=== PATIENT | male | born 1950 | race Caucasian/White ===

== ENCOUNTER 2020-03-24 14:00 | Outpatient (REF) | payer MEDICARE, SELFPAY ==
[2020-03-24 15:48] LABS: Prostate Specific Antigen 6.61 ng/mL (<0.05-4.0)
== END 2020-03-24 14:01 | disposition home or self-care (01) ==
LOC: HO.LAB 14:00
PROVIDERS: PCP Internal Medicine; Visit Provider Urology
DX: N40.1 Benign prostatic hyperplasia with lower urinary tract symptoms (principal); Z12.5 Encounter for screening for malignant neoplasm of prostate
CPT/HCPCS: 84153

== ENCOUNTER 2020-05-15 12:01 | Outpatient (REF) | payer MEDICARE, SELFPAY ==
[2020-05-15 13:02] LABS: Iron 146 mcg/dL (45-160); Percent Iron Saturation 58 % (15-50); Total Iron Binding Capacity 253 mcg/dL (228-428); Unsaturated Iron Binding 107 ug/dL
[2020-05-15 13:06] LABS: Hematocrit 42.2 % (42-52); Hemoglobin 13.7 g/dl (14.0-18.0); Mean Corpuscular HGB Conc 32.5 g/dl (31.0-36.0); Mean Corpuscular Hemoglobin 30.5 pg (27.0-33.0); Mean Platelet Volume 10.7 fL (9.4-12.4); Platelet Count 188 X10*3/uL (160-400); Red Blood Count 4.49 X10*6/uL (4.60-5.80); White Blood Count 6.9 X10*3/uL (4.8-10.8)
[2020-05-15 13:24] LABS: Ferritin 507 ng/mL (20-250)
[2020-05-15 13:36] LABS: Folate 16.6 ng/mL (> or = 4.0); Vitamin B12 410 pg/mL (200-900)
== END 2020-05-15 12:02 | disposition home or self-care (01) ==
LOC: HO.LAB 12:01
PROVIDERS: PCP Internal Medicine; Visit Provider Internal Medicine
DX: D64.9 Anemia, unspecified (principal)
CPT/HCPCS: 36415; 82607; 82728; 82746; 83540; 85027

== ENCOUNTER 2020-06-10 16:27 | Outpatient (REF) | payer MEDICARE, SELFPAY | END 2020-06-10 16:28 | disposition home or self-care (01) | LOC: HO.LAB 16:27 | PROVIDERS: Visit Provider Internal Medicine | DX: Z20.828 Contact with and (suspected) exposure to other viral communicable diseases (principal) | CPT/HCPCS: C9803; U0003 ==

== ENCOUNTER → 2020-07-21 12:00 | Outpatient (BNVA) | payer MEDICARE, SELFPAY | PROVIDERS: PCP Internal Medicine; Visit Provider Orthopaedic Surgery | DX: M75.41 Impingement syndrome of right shoulder (principal) | CPT/HCPCS: 20610; 99212; J1040 ==

== ENCOUNTER 2020-09-28 10:37 | Outpatient (REF) | payer MEDICARE, SELFPAY ==
[2020-09-28 12:57] LABS: Prostate Specific Antigen 9.94 ng/mL (<0.05-4.0)
== END 2020-09-28 10:38 | disposition home or self-care (01) ==
LOC: HO.LAB 10:37
PROVIDERS: PCP Internal Medicine; Visit Provider Urology
DX: N40.1 Benign prostatic hyperplasia with lower urinary tract symptoms (principal)
CPT/HCPCS: 36415; 84153

== ENCOUNTER 2020-12-21 06:09 | Outpatient (REF) | payer MEDICARE, SELFPAY ==
[2020-12-21 07:35] LABS: Alanine Aminotransferase 13 U/L (0-40); Anion Gap 12 (12-20); Aspartate Amino Transferase 14 U/L (5-37); Blood Urea Nitrogen 14 mg/dL (9-16); Calcium 8.8 mg/dL (8.4-10.2); Carbon Dioxide 27 mmol/L (22-29); Chloride 107 mmol/L (96-108); Cholesterol 158 mg/dL; Estimated Glomerular Filt Rate > 60; Glucose Fasting 95 mg/dL (60-99); HDL Cholesterol 68 mg/dL; LDL Cholesterol Calculated 78 mg/dl; Potassium 4.1 mmol/L (3.3-5.1); Sodium 142 mmol/L (135-145); Triglycerides 63 mg/dL
== END 2020-12-21 06:10 | disposition home or self-care (01) ==
LOC: HO.LAB 06:09
PROVIDERS: Visit Provider Internal Medicine
DX: I10 Essential (primary) hypertension (principal)
CPT/HCPCS: 36415; 80048; 80061; 84450; 84460

== ENCOUNTER 2021-06-17 07:52 | Outpatient (REF) | payer MEDICARE, SELFPAY ==
[2021-06-17 09:18] LABS: Prostate Specific Antigen 8.62 ng/mL (<0.05-4.0)
== END 2021-06-17 07:53 | disposition home or self-care (01) ==
LOC: HO.LAB 07:52
PROVIDERS: PCP Internal Medicine; Visit Provider Urology
DX: Z12.5 Encounter for screening for malignant neoplasm of prostate (principal); R97.20 Elevated prostate specific antigen [PSA]
CPT/HCPCS: 36415; 84153

== ENCOUNTER 2021-07-09 09:10 | Outpatient (REF) | payer MEDICARE, SELFPAY ==
[2021-07-09 10:48] LABS: Anion Gap 12 (12-20); Blood Urea Nitrogen 19 mg/dL (9-16); Calcium 8.7 mg/dL (8.4-10.2); Carbon Dioxide 26 mmol/L (22-29); Chloride 107 mmol/L (96-108); Estimated Glomerular Filt Rate > 60; Glucose Fasting 87 mg/dL (60-99); Potassium 4.2 mmol/L (3.3-5.1); Sodium 141 mmol/L (135-145)
== END 2021-07-09 09:11 | disposition home or self-care (01) ==
LOC: HO.LAB 09:10
PROVIDERS: PCP Internal Medicine; Visit Provider Internal Medicine
DX: I10 Essential (primary) hypertension (principal)
CPT/HCPCS: 36415; 80048

== ENCOUNTER 2021-08-09 10:27 | Emergency (ER) | payer MEDICARE, SELFPAY ==
--- NOTE | ~2021-08-09 | CT_ITS ---
EXAMINATION: CT SOFT TISSUE NECK WITH CONTRAST CLINICAL INFORMATION: Right neck and jaw swelling. Gray's angina. Evaluate for retropharyngeal abscess. COMPARISON: No relevant prior imaging. TECHNIQUE: Following the intravenous administration of 100 mL of Omnipaque 350 intravenous contrast, helical imaging was performed in the axial plane with generation of coronal and sagittal reformatted images. This CT examination was performed using dose optimization techniques as appropriate, variously including the following: *Automated exposure control *Adjustment of mA and/or kV according to patient size (this includes techniques or standardized protocols for targeted exams where dose is matched to indication/reason for exam; i.e. extremities or head) *Use of iterative reconstruction technique DLP: 958 mGy-cm FINDINGS: There is asymmetric stranding within the subcutaneous soft tissues of the right anterior neck and there is apparent thickening and enhancement of the right buccal mucosa. No discrete drainable subperiosteal fluid collection. Internal jugular veins enhance symmetrically and there is no evidence of septic thrombophlebitis. Pharyngeal mucosal spaces are symmetric. Parapharyngeal and retromaxillary fat is preserved. [employer] spaces are grossly symmetric. Parotid and submandibular glands are normal. The tongue base and epiglottis are normal. Preepiglottic fat is preserved. Glottic and subglottic airways are patent. The thyroid gland is normal and the remainder of the visualized visceral soft tissues are normal. Lung apices are clear. Cervical carotid and vertebral arteries are grossly patent. There is no acute osseous finding. Specifically no worrisome lytic or blastic osseous lesion. 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 Limited visualization of the intracranial anatomy reveals no abnormal finding. CT/CT soft tissue neck w con IMPRESSION: There are inflammatory changes within the subcutaneous soft tissues of the right anterior neck and asymmetric thickening and hyperenhancement of the right buccal mucosal space. No evidence of a discrete drainable fluid collection. No evidence of septic thrombophlebitis. Correlation with clinical examination is recommended with regard to the findings within the buccal mucosa.
[2021-08-09 10:34] VITALS: BP 119/74; PULSE 78; RESP 18; TEMP 36.9; O2SAT 96; BMI 33.2
--- NOTE | 2021-08-09 11:43 | ED_ITS ---
HPI - General Adult General Chief complaint: Dental/Oral Stated complaint: mouth infection Time Seen by Provider: 08/09/21 11:14 Source: patient Mode of arrival: ambulatory Limitations: no limitations History of Present Illness HPI narrative: This 71-year-old male presents to ED for right lower molar pain with right facial and right neck swelling that began 2 days ago with an worsen overnight. Patient states he had dental work 2 days ago and then soon after started having dental pain with swelling of the lower jaw and then this morning woke up with right neck swelling. Patient states he has been taking amoxicillin for the past 2 days. Patient denies any drooling, shortness of breath, change in voice, hea dache, fever, or chills. Related Data Home Medications Medication Instructions Recorded Confirmed flu vacc [id number] 6mos up(PF) ml IM 05/20/20 08/05/21 tamsulosin 0.4 mg capsule mg PO 05/20/20 08/05/21 metaproterenol 650 mcg/actuation mcg INHALATION BID PRN 07/13/21 08/05/21 aerosol inhaler Previous Rx's Medication Instructions Recorded amlodipine 5 mg tablet 5 mg PO DAILY #90 tab 04/14/21 atenolol 25 mg tablet 25 mg PO DAILY #90 tab 04/14/21 montelukast 10 mg tablet 10 mg PO BEDTIME #90 tab 04/14/21 Allergies Allergy/AdvReac Type Severity Reaction Status Date / Time albuterol [Albuterol] Allergy Severe INITIATES Verified 08/05/21 17:27 ASTHMA ATTACK, broncho spasm, resp arrest , sob morphine [Morphine] Allergy Severe VOMITING, Verified 08/05/21 17:27 gi upset, hallucinations, vomiting acetaminophen [Percocet] AdvReac Unknown hallucinations, Verified 08/05/21 17:27 vomiting oxycodone [Percocet] AdvReac Unknown hallucinations, Verified 08/05/21 17:27 vomiting Review of Systems Review of Systems: Right toothache. Right facial/neck swelling Yes all other systems are reviewed and are negative PMFSH Past Medical History Medical History Benign prostatic hyperplasia Degenerative joint disease (DJD) of lumbar spine Environmental and seasonal allergies Essential hypertension Mild intermittent asthma in adult without complication SARIKA on CPAP Skin lesion of left ear T12 compression fracture Surgical History History of knee surgery History of lumbar spinal fusion Hx of cholecystectomy Family History Family History Father CAD (coronary artery disease) HTN (hypertension) CVD (cardiovascular disease) Mother Medical history non-contributory Social History Social History Housing: House Alcohol intake: never Patient Tobacco Use Status: Never used Tobacco e-Cigarette/Vaping Use: Never Used Second Hand Smoke Exposure: No Advance Directives: Yes Advance Directives Information Provided: Yes Advance Directives on File: No Current occupational status: retired Physical Exam ED Vital Signs: Vital Signs - 24 hr 08/09/21 10:34 Temperature 98.5 F Pulse Rate 78 Respiratory Rate 18 Blood Pressure 119/74 Pulse Oximetry 96 BMI result Body Mass Index 33.2 Const General: cooperative, healthy appearing, comfortable, no acute distress and well developed Orientation/consciousness: oriented to time and patient oriented x3 HENMT Head: Yes normal to inspection, Yes No palpable skull fracture present, Yes normocephalic, Yes atraumatic and No abrasion Head images: 1. Right facial swelling Teeth image: 1. Tenderness on palpation. Positive for dental decay. Negative for gum fluctuance/erythema/swelling. Eyes General: appearance normal, both eyes and all related structures Neck Neck: Yes normal visual inspection, Yes full ROM, Yes no lymphadenopathy, Yes no meningeal signs, Yes trachea midline, Yes supple and Yes anterior neck swelling (Right-sided neck swelling) Neck images: 1. Swelling with no palpable mass on palpation Chest Chest palpation & inspection: normal inspection of the chest and normal palpation of entire chest wall Resp Effort & Inspection: normal respiratory effort and able to speak in complete sentences Auscultation: clear to auscultation bilaterally Cardio Jugular venous distension: no JVD Heart sounds: S1 normal heart sound present and S2 normal heart sound present GI Inspection: Yes normal to inspection and No abdominal wall ecchymosis Palpation (GI): Soft to palpation, not firm, nontender, no guarding and not rigid General: No CVA tenderness and Yes no CVA tenderness Back/Spine/Pelvis Back: no CVA tenderness, No CVA tenderness and No back tenderness Skin General skin exam: no rashes or lesions noted and elasticity normal Neuro General: oriented to time, patient oriented x3 and no meningeal signs Cranial nerves: Yes CN's II-XII intact bilaterally Extrem General: Yes normal to inspection and Yes full ROM Psych Appearance: grossly normal, well kempt and not disheveled Course Course Course Narrative: Due to significant facial and neck swelling and recent dental work patient will have labs drawn, lactic blood culture, COVID swab, IV Unasyn and most likely sent for imaging of neck. Reevaluation(s) Reevaluation #1: Labs are normal. Negative for elevated white blood cell count or lactic acid. Kidney function chemistry normal. Soft tissue neck CT scan came back negative for any drainable abscess in gum, and negative for retropharyngeal abscess or Gray's angina. Patient informed to continue taking his amoxicillin and follow up with dentist. Patient given copy of CT scan and labs to follow-up with his dentist Time: 14:33 Medical Decision Making [facility] Narrative Medical decision making narrative: Toothache. Her down to disease Lab Data Result diagrams: 08/09/21 11:43 08/09/21 11:43 Labs: Lab Results 08/09/21 08/09/21 08/09/21 Range/Units 11:43 11:43 11:43 WBC 9.7 (4.8-10.8) X10*3/uL RBC 4.64 (4.60-5.80) X10*6/uL Hgb 14.2 (14.0-18.0) g/dl Hct 42.9 (42.0-52.0) % MCV 92.5 (80.0-98.0) fL MCH 30.6 (27.0-33.0) pg MCHC 33.1 (31.0-36.0) g/dl RDW 14.4 (11.0-16.0) % Plt Count 161 (160-400) X10*3/uL MPV 10.4 (9.4-12.4) fL Immature Gran % (Auto) 0.5 H (0.0-0.4) % Neut % (Auto) 75.8 H (45-73) % Lymph % (Auto) 12.5 L (20-40) % Fannin % (Auto) 10.6 (2-11) % Eos % (Auto) 0.4 (0-4) % Baso % (Auto) 0.2 (0-2) % Lymph # (Auto) 1.2 (1.2-4.9) X10*3/uL Fannin # (Auto) 1.0 (0.1-1.2) X10*3/uL Eos # (Auto) 0.0 (0.0-0.4) X10*3/uL Baso # (Auto) 0.0 (0.0-0.2) X10*3/uL Abs Immat Gran (auto) 0.05 H (0.00-0.03) X10*3/uL Absolute Neuts (auto) 7.4 (2.0-8.3) x10*3/uL Absolute Nucleated RBC 0.000 (0.0-0.012) X10*3/uL Nucleated RBC % (auto) 0.0 (0.0-0.2) /100WBC PT 13.1 H (9.9-13.0) SEC INR 1.2 H (0.9-1.1) APTT 32.7 (24.1-38.0) SEC Sodium 137 (135-145) mmol/L Potassium 4.4 (3.3-5.1) mmol/L Chloride 102 (96-108) mmol/L Carbon Dioxide 27 (22-29) mmol/L Anion Gap 12 (12-20) BUN 11 (9-16) mg/dL Creatinine 0.70 (0.5-1.4) mg/dL Estim Creat Clear Calc 113.9 Estimated GFR > 60 Random Glucose 104 (60-115) mg/dL Lactic Acid (0.5-2.0) mmol/L Calcium 9.3 D (8.4-10.2) mg/dL Total Bilirubin 0.8 (0.0-1.0) mg/dL AST 18 (5-37) U/L ALT 18 (0-40) U/L Alkaline Phosphatase 79 (39-117) U/L Total Protein 6.6 (6.5-8.0) g/dL Albumin 4.0 (3.5-5.0) g/dL COVID-19 (EDB) (Negative) COVID-19 Clin Com 08/09/21 08/09/21 Range/Units 11:43 11:43 WBC (4.8-10.8) X10*3/uL RBC (4.60-5.80) X10*6/uL Hgb (14.0-18.0) g/dl Hct (42.0-52.0) % MCV (80.0-98.0) fL MCH (27.0-33.0) pg MCHC (31.0-36.0) g/dl RDW (11.0-16.0) % Plt Count (160-400) X10*3/uL MPV (9.4-12.4) fL Immature Gran % (Auto) (0.0-0.4) % Neut % (Auto) (45-73) % Lymph % (Auto) (20-40) % Fannin % (Auto) (2-11) % Eos % (Auto) (0-4) % Baso % (Auto) (0-2) % Lymph # (Auto) (1.2-4.9) X10*3/uL Fannin # (Auto) (0.1-1.2) X10*3/uL Eos # (Auto) (0.0-0.4) X10*3/uL Baso # (Auto) (0.0-0.2) X10*3/uL Abs Immat Gran (auto) (0.00-0.03) X10*3/uL Absolute Neuts (auto) (2.0-8.3) x10*3/uL Absolute Nucleated RBC (0.0-0.012) X10*3/uL Nucleated RBC % (auto) (0.0-0.2) /100WBC PT (9.9-13.0) SEC INR (0.9-1.1) APTT (24.1-38.0) SEC Sodium (135-145) mmol/L Potassium (3.3-5.1) mmol/L Chloride (96-108) mmol/L Carbon Dioxide (22-29) mmol/L Anion Gap (12-20) BUN (9-16) mg/dL Creatinine (0.5-1.4) mg/dL Estim Creat Clear Calc Estimated GFR Random Glucose (60-115) mg/dL Lactic Acid 1.1 (0.5-2.0) mmol/L Calcium (8.4-10.2) mg/dL Total Bilirubin (0.0-1.0) mg/dL AST (5-37) U/L ALT (0-40) U/L Alkaline Phosphatase (39-117) U/L Total Protein (6.5-8.0) g/dL Albumin (3.5-5.0) g/dL COVID-19 (DEB) Negative (Negative) COVID-19 Clin Com See Note Discharge Plan Discharge Clinical Impression: Toothache, Gingival disease Patient Disposition: Home, Self-Care Instructions: Toothache (ED), Periodontal Disease (DC) Additional Instructions: Your blood work came back normal. Chest CT scan came back negative for any abscess in your neck oral cavity. Continue taking augmentin as prescribed by her dentist. Please follow-up with your dentist immediately. Return to ED for worsening swelling, drooling, shortness of breath, change in voice, sensation of throat closing, or any other concerning symptoms. Prescriptions: No Action montelukast 10 mg tablet 10 mg PO BEDTIME Qty: 90 3RF atenolol 25 mg tablet 25 mg PO DAILY Qty: 90 3RF amlodipine 5 mg tablet 5 mg PO DAILY Qty: 90 4RF tamsulosin 0.4 mg capsule PO 0RF Fluarix Quad [id number] (PF) 60 mcg (15 mcg x 4)/0.5 mL syringe IM 0RF metaproterenol 650 mcg/actuation aerosol inhalation BID PRN (Reason: bronchospasm) 0RF Interventions: ED Discharge Assessment Last Done: 08/09/21 14:43 Discharge Date/Time: 08/09/21 14:44 Print Language: Tamazight
[2021-08-09] MEDS: 0.9 % Sodium Chloride 1,000 ML 999 ML IV (11:44)
[2021-08-09 11:57] LABS: MANUAL DIFF FLAG NO
[2021-08-09 11:58] LABS: Basophils Percent Auto 0.2 % (0-2); Eosinophils Percent Auto 0.4 % (0-4); Hematocrit 42.9 % (42.0-52.0); Hemoglobin 14.2 g/dl (14.0-18.0); Imm Gran Abs Auto 0.05 X10*3/uL (0.00-0.03); Imm Gran Pct Auto 0.5 % (0.0-0.4); Lymphocytes Absolute Auto 1.2 X10*3/uL (1.2-4.9); Lymphocytes Percent Auto 12.5 % (20-40); Mean Corpuscular HGB Conc 33.1 g/dl (31.0-36.0); Mean Corpuscular Hemoglobin 30.6 pg (27.0-33.0); Mean Corpuscular Volume 92.5 fL (80.0-98.0); Mean Platelet Volume 10.4 fL (9.4-12.4); Monocytes Percent Auto 10.6 % (2-11); Neutrophils Absolute Auto 7.4 x10*3/uL (2.0-8.3); Neutrophils Percent Auto 75.8 % (45-73); Platelet Count 161 X10*3/uL (160-400); Red Blood Count 4.64 X10*6/uL (4.60-5.80); Red Cell Distribution Width 14.4 % (11.0-16.0); White Blood Count 9.7 X10*3/uL (4.8-10.8)
[2021-08-09 12:05] LABS: INTERNATIONAL NORM RATIO 1.2 (0.9-1.1); Prothrombin Time 13.1 SEC (9.9-13.0)
[2021-08-09 12:07] LABS: Partial Thromboplastin Time 32.7 SEC (24.1-38.0)
[2021-08-09] MEDS: Ampicillin Sodium/Sulbactam Na 3 GM in 0.9 % Sodium Chloride 100 ML IV (12:09)
[2021-08-09 12:10] LABS: Lactic Acid 1.1 mmol/L (0.5-2.0)
[2021-08-09 12:15] LABS: Alanine Aminotransferase 18 U/L (0-40); Alkaline Phosphatase 79 U/L (39-117); Anion Gap 12 (12-20); Aspartate Amino Transferase 18 U/L (5-37); Bilirubin Total 0.8 mg/dL (0.0-1.0); Blood Urea Nitrogen 11 mg/dL (9-16); Calcium 9.3 mg/dL (8.4-10.2); Carbon Dioxide 27 mmol/L (22-29); Chloride 102 mmol/L (96-108); Creatinine Clr Calc Pharmacy 113.9; Estimated Glomerular Filt Rate > 60; Glucose Random 104 mg/dL (60-115); Potassium 4.4 mmol/L (3.3-5.1); Sodium 137 mmol/L (135-145); Total Protein 6.6 g/dL (6.5-8.0)
[2021-08-09 12:35] LABS: COVID-19 Test Negative (Negative)
[2021-08-09] MEDS: iohexoL 350 MG/ML 100 ML INFUS..BTL IV (13:41)
== END 2021-08-09 14:44 | disposition home or self-care (01) ==
PROVIDERS: Physician Assistant; Emergency Provider Emergency Medicine; PCP Internal Medicine
DX: K08.89 Other specified disorders of teeth and supporting structures (principal); K06.9 Disorder of gingiva and edentulous alveolar ridge, unspecified; Z20.822 Contact with and (suspected) exposure to COVID-19
CPT/HCPCS: 70491; 80053; 83605; 85025; 85610; 85730; 87040; 87635; 96361; 96374; 99283; 99284; J0295; Q9967

== ENCOUNTER 2022-01-13 16:07 | Outpatient (REF) | payer MEDICARE, SELFPAY ==
[2022-01-13 16:58] LABS: Alanine Aminotransferase 16 U/L (0-40); Anion Gap 13 (12-20); Aspartate Amino Transferase 16 U/L (5-37); Blood Urea Nitrogen 12 mg/dL (9-16); Calcium 8.8 mg/dL (8.4-10.2); Carbon Dioxide 25 mmol/L (22-29); Chloride 106 mmol/L (96-108); Cholesterol 145 mg/dL; Estimated Glomerular Filt Rate > 60; Glucose Fasting 118 mg/dL (60-99); HDL Cholesterol 55 mg/dL; LDL Cholesterol Calculated 64 mg/dl; Potassium 3.9 mmol/L (3.3-5.1); Sodium 140 mmol/L (135-145); Triglycerides 130 mg/dL
[2022-01-13 17:41] LABS: Prostate Specific Antigen 8.78 ng/mL (<0.05-4.0)
== END 2022-01-13 16:08 | disposition home or self-care (01) ==
LOC: HO.LAB 16:07
PROVIDERS: PCP Internal Medicine; Visit Provider Urology
DX: Z12.5 Encounter for screening for malignant neoplasm of prostate (principal); N40.1 Benign prostatic hyperplasia with lower urinary tract symptoms; I10 Essential (primary) hypertension
CPT/HCPCS: 36415; 80048; 80061; 84153; 84450; 84460

== ENCOUNTER → 2022-03-04 09:59 | Outpatient (BNVA) | payer MEDICARE, SELFPAY | PROVIDERS: PCP Internal Medicine; Visit Provider Surgery | DX: D17.0 Benign lipomatous neoplasm of skin and subcutaneous tissue of head, face and neck (principal); G47.33 Obstructive sleep apnea (adult) (pediatric); J45.20 Mild intermittent asthma, uncomplicated; Z99.89 Dependence on other enabling machines and devices | CPT/HCPCS: 99202 ==

== ENCOUNTER 2022-03-18 07:46 | Outpatient (REF) | payer MEDICARE, SELFPAY ==
[2022-03-18 07:47] VITALS: BP 142/70; PULSE 64; RESP 18; TEMP 36.7; O2SAT 96; BMI 33.2
--- NOTE | 2022-03-18 08:30 | W.PM.OPN ---
Operative Note Operative Note Date of Service: 03/18/22 Narrative: Preop diagnosis: [Lipoma, right posterior neck/trapezius area] Postop diagnosis: [Same] Procedure: [Excision of 3 x 4 cm lipomatous mass with intermediate closure] Surgeon: Frankie Rodriguez MD Assist: [None] Anesthesia: [Lidocaine, 2% with epi] Estimated blood loss: [3cc] Specimen: [Lipoma] Intraoperative findings: [] Indications: [The patient is a 71-year-old gentleman with a low symptomatic lipomatous mass on his right neck that is been growing. Options were discussed and he wanted to have it removed. The inherent risks of scar, bleeding, infection and recurrence as well as seroma complications were discussed. Activity restrictions were also reviewed and apparently understood. Patient seemed understand his options declined a 2nd opinion wanted to proceed.] Procedure: [The patient was identified in the minor procedure room, seated on the edge of the table an appropriate time-out done confirming the patient and the operation planned. His upper back and neck were cleansed with multiple layers of isopropyl alcohol that was allowed to dry between layers. After waiting 3 minutes, the patient was draped with a fenestrated drape and a planned incision measuring 3 cm which encompassed the lipomatous mass was performed. Local was infiltrated with excellent effect. A transverse incision was made sharply and carried down through the subcutaneous tissues and electrocautery was used on a setting of 20 via once for hemostasis. The lipoma was rather elongated in track down to the trapezius fascia. It is excise size was approximately 3.0 x 4.1 cm. After inspecting the pocket for hemostasis, deep subcutaneous tissues were approximated with absorbable 3-0 Polysorb sutures to minimize the risk of seroma formation. Then deep dermal sutures were placed and the skin approximated with 3-0 polypropylene sutures. Patient tolerated the procedure well. Instructions regarding ice pack pain management and activity reviewed and apparently understood patient will follow-up next week for sutures, sooner if there are problems.]
== END 2022-03-18 07:47 | disposition home or self-care (01) ==
LOC: HO.MS 07:46
PROVIDERS: PCP Internal Medicine; Visit Provider Surgery
PROC: (CPT 21556; principal; 2022-03-18 08:00)
DX: D17.0 Benign lipomatous neoplasm of skin and subcutaneous tissue of head, face and neck (principal)
CPT/HCPCS: 21556; 88304

== ENCOUNTER → 2022-03-25 09:26 | Outpatient (BNVA) | payer MEDICARE, SELFPAY | PROVIDERS: PCP Internal Medicine; Visit Provider Surgery | DX: Z48.817 Encounter for surgical aftercare following surgery on the skin and subcutaneous tissue (principal); Z87.2 Personal history of diseases of the skin and subcutaneous tissue | CPT/HCPCS: 99212 ==

== ENCOUNTER 2022-07-02 07:16 | Outpatient (REF) | payer MEDICARE, SELFPAY ==
[2022-07-02 07:55] LABS: Estimated Average Glucose 91 mg/dL; Hemoglobin A1c % 4.8 %
[2022-07-02 08:58] LABS: Alanine Aminotransferase 15 U/L (0-40); Anion Gap 11 (12-20); Aspartate Amino Transferase 15 U/L (5-37); Blood Urea Nitrogen 10 mg/dL (9-16); Carbon Dioxide 27 mmol/L (22-29); Chloride 108 mmol/L (96-108); Cholesterol 154 mg/dL; Estimated Glomerular Filt Rate > 60; Glucose Fasting 96 mg/dL (60-99); HDL Cholesterol 52 mg/dL; LDL Cholesterol Calculated 81 mg/dl; Sodium 142 mmol/L (135-145); Triglycerides 108 mg/dL
== END 2022-07-02 07:17 | disposition home or self-care (01) ==
LOC: HO.LAB 07:16
PROVIDERS: PCP Internal Medicine; Visit Provider Internal Medicine
DX: I10 Essential (primary) hypertension (principal); R73.01 Impaired fasting glucose
CPT/HCPCS: 36415; 80048; 80061; 83036; 84450; 84460

== ENCOUNTER 2022-07-07 10:35 | Outpatient (AMB) | payer MEDICARE, SELFPAY ==
[2022-07-07 10:56] VITALS: BP 100/66; PULSE 74; O2SAT 95; BMI 31.7
--- NOTE | 2022-07-07 10:56 | A.OFFPC_ITS ---
Vital Signs 07/07/22 10:56 Height 5 ft 9 in Weight 215 lb BMI 31.7 BP 100/66 Blood Pressure Location Lt brachial Position Sitting Pulse 74 Pulse Source Pulse Oximeter Pulse Oximetry (%) 95 Oxygen Delivery Method Room Air Intake Visit Reasons: medication follow up Intake Note: Pt is here today for his f/u Allergies albuterol [Albuterol] Allergy (Severe, Verified 07/07/22 11:33) INITIATES ASTHMA ATTACK, broncho spasm, resp arrest , sob morphine [Morphine] Allergy (Severe, Verified 07/07/22 11:33) VOMITING, gi upset, hallucinations, vomiting acetaminophen [Percocet] Adverse Reaction (Unknown, Verified 07/07/22 11:33) hallucinations, vomiting oxycodone [Percocet] Adverse Reaction (Unknown, Verified 07/07/22 11:33) hallucinations, vomiting Medication List - Last Reconciled 07/07/22 by Melina Hou MD amlodipine 5 mg PO DAILY atenolol 25 mg PO DAILY azelastine 1 spray intranasal BID MDD rhinitis dutasteride 0.5 mg PO DAILY montelukast 10 mg PO BEDTIME tamsulosin mg PO Tobacco use date assessed: 07/07/22 Fall risk assessment: No Falls in past year Last assessed Fall Risk: 07/07/22 HPI medication follow up HPI Details 73-year-old male with hypertension, mild intermittent asthma, and seasonal allergies, here today for his follow-up up. He has been feeling well, last asthma attack was several years ago. Blood pressure stable controlled on present treatment. He however has been having recurrent episodes of nasal congestion and postnasal drainage. Not improved with taking montelukast. Denies any accompanying fever, no shortness of breath, no sore throat or lightheadedness reported. Currently followed at [place] [facility] for his obstructive sleep apnea, currently on CPAP [facility] Medical History Benign prostatic hyperplasia Degenerative joint disease (DJD) of lumbar spine Environmental and seasonal allergies Essential hypertension Impaired fasting glucose Mild intermittent asthma in adult without complication SARIKA on CPAP Skin lesion of left ear T12 compression fracture Surgical History History of excision of mass (03/18/22) History of knee surgery History of lumbar spinal fusion Hx of cholecystectomy Family History Father CAD (coronary artery disease) HTN (hypertension) CVD (cardiovascular disease) Mother Medical history non-contributory Social History Housing: House Alcohol intake: never Patient Tobacco Use Status: Never used Tobacco e-Cigarette/Vaping Use: Never Used Second Hand Smoke Exposure: No Current occupational status: retired Cognitive needs: No Hearing needs: Yes Vision needs: Yes Questionnaire PHQ-9 Over the last 2 weeks, how often have you been bothered by any of the following problems? Depression Screening Interpretation: Negative Source: Developed by Drs. Scott Alexander, Tawny Aguero, Gideon Gandara and colleagues, with an educational jac from [employer]. Thrive Questionnaire Date Thrive assessed: 07/13/21 AUDIT C Alcohol Use Questionnaire (AUDIT-C) 1. How often do you have a drink containing alcohol?: Monthly or less 2. How many drinks containing alcohol do you have on a typical day when you are drinking?: 1 or 2 3. How often do you have six or more drinks on one occasion?: Never Total Score: 1 JEAN-7 AMB Questionnaire JEAN-7 Date JEAN - 7 assessed: 07/13/21 Feeling nervous, anxious, or on edge: 0 = Not at all Not being able to stop or control worryin = Not at all Worrying too much about different things: 0 = Not at all Trouble relaxin = Not at all Being so restless that it is hard to sit still: 0 = Not at all Becoming easily annoyed or irritable: 0 = Not at all Feeling afraid as if something awful might happen: 0 = Not at all Total JEAN-7 score (0-4 normal; 5-9 mild; 10-14 moderate; 15-21 severe): 0 Source: Developed by Drs. Scott Alexander, Tawny Aguero, Gideon Gandara and colleagues, with an educational jac from [employer]. Review of Systems Const Denies body aches, Denies fatigue, Denies fever(s), Denies headache(s) and Denies weakness Eyes Denies change in vision ENT Denies dizziness, Denies headache(s) and Denies sore throat Card Denies chest pain, Denies lightheadedness, Denies palpitations and Denies dyspnea Resp Denies chest congestion, Denies cough, Denies dyspnea and Denies wheezing GI Denies abdominal pain, Denies change in bowel habits and Denies heartburn Denies dysuria, Denies urinary frequency and Denies urinary urgency Musc Denies back pain, Denies myalgias, Denies arthralgias and Denies joint swelling Skin/Breast Denies lesions and Denies rash Neuro Denies dizziness, Denies headache(s) and Denies weakness Endo Denies fatigue, Denies polydipsia, Denies polyuria and Denies palpitations Stone/Lymph Denies easy bruising Aller/Immun Denies seasonal rhinorrhea and Denies wheezing Physical exam (Primary Care) Vital Signs: Last Vital Signs Pulse 74 07/07/22 10:56 BP 100/66 07/07/22 10:56 Pulse Ox 95 07/07/22 10:56 Oxygen Delivery Method Room Air 07/07/22 10:56 BMI result Body Mass Index 31.7 Tobacco/Smoking Status: Tobacco use Status Tobacco use date assessed 07/07/22 07/07/22 11:00 Patient Tobacco Use Status Never used Tobacco 07/07/22 11:00 e-Cigarette/Vaping Use Never Used 07/07/22 11:00 Depression Screening Interpretation: Negative Thrive Assessment: Date of Thrive Assessment Date Thrive assessed 07/13/21 07/07/22 11:00 Const General: cooperative, comfortable and no acute distress Orientation/consciousness: patient oriented x3 HENMT Head: Yes normocephalic Ears: hearing grossly normal bilaterally General nose exam: Normal external nose present, Normal nasal mucous membranes and turbinates present and No nasal discharge present Face and sinus: Yes face symmetric Mouth: Normal oral and palatal mucosa present Eyes General: appearance normal, both eyes and all related structures Neck Neck: Yes full ROM, Yes no lymphadenopathy and Yes supple Resp Effort & Inspection: normal respiratory effort and able to speak in complete sentences Auscultation: clear to auscultation bilaterally Cardio Rate: regular rate Rhythm: regular rhythm Heart sounds: S1 normal heart sound present and S2 normal heart sound present GI Palpation (GI): Soft to palpation, nontender, no guarding and no masses Auscultation: normal bowel sounds Neuro General: patient oriented x3, gait normal, tone normal, moves all extremities, Normal light touch and pain sensation and no focal motor deficits Extrem General: Yes normal to inspection, Yes full ROM, Yes no joint enlargement, Yes no pedal edema and Yes normal gait Assessment and Plan Assessment & Plan (1) Essential hypertension: Code(s): I10 - Essential (primary) hypertension Plan: Blood pressure at goal of less than 130/80. Continue with atenolol 25 mg once a day and amlodipine 5 mg once a day. Reinforced importance of following a low sodium diet, getting regular exercise, and lowering stress levels. (2) Environmental and seasonal allergies: Code(s): J30.89 - Other allergic rhinitis Plan: Prescription sent for azelastine nasal spray to use as directed, continue with montelukast (3) Mild intermittent asthma in adult without complication: Code(s): J45.20 - Mild intermittent asthma, uncomplicated Plan: Currently asymptomatic, continued on montelukast 10 mg at night Medications: New azelastine administer into each nostril 1 spray intranasal BID 30 mL 0RF MDD rhinitis Coding Level of Care Code Est Pt Level 3 (74294) Diagnoses Essential hypertension I10 Environmental and seasonal allergies J30.89 Mild intermittent asthma in adult without complication J45.20
--- NOTE | 2022-07-07 11:01 | MHC.PC.OV ---
Vital Signs 07/07/22 10:56 Height 5 ft 9 in Weight 215 lb BMI 31.7 BP 100/66 Blood Pressure Location Lt brachial Position Sitting Pulse 74 Pulse Source Pulse Oximeter Pulse Oximetry (%) 95 Oxygen Delivery Method Room Air Intake Visit Reasons: medication follow up Intake Note: Pt is here today for his f/u Allergies albuterol [Albuterol] Allergy (Severe, Verified 07/07/22 11:33) INITIATES ASTHMA ATTACK, broncho spasm, resp arrest , sob morphine [Morphine] Allergy (Severe, Verified 07/07/22 11:33) VOMITING, gi upset, hallucinations, vomiting acetaminophen [Percocet] Adverse Reaction (Unknown, Verified 07/07/22 11:33) hallucinations, vomiting oxycodone [Percocet] Adverse Reaction (Unknown, Verified 07/07/22 11:33) hallucinations, vomiting Medication List - Last Reconciled 07/07/22 by Melina Hou MD amlodipine 5 mg PO DAILY atenolol 25 mg PO DAILY azelastine 1 spray intranasal BID MDD rhinitis dutasteride 0.5 mg PO DAILY montelukast 10 mg PO BEDTIME tamsulosin mg PO Tobacco use date assessed: 07/07/22 HPI medication follow up HPI Details follows [employer] and does at least 15-30 minutes qwalking for exercise daily , has lost weight , feels better , more energy PFSH Medical History Benign prostatic hyperplasia Degenerative joint disease (DJD) of lumbar spine Environmental and seasonal allergies Essential hypertension Impaired fasting glucose Mild intermittent asthma in adult without complication SARIAK on CPAP Skin lesion of left ear T12 compression fracture Surgical History History of excision of mass (03/18/22) History of knee surgery History of lumbar spinal fusion Hx of cholecystectomy Family History Father CAD (coronary artery disease) HTN (hypertension) CVD (cardiovascular disease) Mother Medical history non-contributory Social History Housing: House Alcohol intake: never Patient Tobacco Use Status: Never used Tobacco e-Cigarette/Vaping Use: Never Used Second Hand Smoke Exposure: No Current occupational status: retired Cognitive needs: No Hearing needs: Yes Vision needs: Yes Questionnaire PHQ-9 Over the last 2 weeks, how often have you been bothered by any of the following problems? 1. Little interest or pleasure in doing things: not at all 2. Feeling down, depressed, or hopeless: not at all 3. Trouble falling or staying asleep, or sleeping too much: not at all 4. Feeling tired or having little energy: not at all 5. Poor appetite or overeating: not at all 6. Feeling bad about yourself - or that you are a failure or have let yourself or your family down: not at all 7. Trouble concentrating on things, such as reading the newspaper or watching television: not at all 8. Moving or speaking so slowly that other people could have noticed. Or the opposite - being so fidgety or restless that you have been moving around a lot more than usual: not at all 9. Thoughts that you would be better off or of hurting yourself in some way: not at all Total score: 0 Source: Developed by Drs. Scott Alexander, Tawny Aguero, Gideon Gandara and colleagues, with an educational jac from [employer]. Thrive Questionnaire Declines Thrive assessment: No Date Thrive assessed: 07/07/22 I am a: Patient What is your living situation today?: I have a steady place to live Within the past 12 months, did the food you bought not last and you didn't have the money to get more?: Never true Within the past 12 months, did you worry whether your food would run out before you got money to buy more?: Never true Do you have trouble paying for medicines?: No Do you have trouble getting transportation to medical appointments?: No Do you have trouble paying your heating and electricity bill?: No Do you have trouble with day-to-day activities such as bathing, preparing meals, shopping, managing finances, etc.?: No Are you currently unemployed and looking for a job?: No Are you interested in more education?: No AUDIT C Alcohol Use Questionnaire (AUDIT-C) 1. How often do you have a drink containing alcohol?: Monthly or less 2. How many drinks containing alcohol do you have on a typical day when you are drinking?: 1 or 2 3. How often do you have six or more drinks on one occasion?: Never Total Score: 1 JEAN-7 AMB Questionnaire JEAN-7 Date JEAN - 7 assessed: 07/07/22 Feeling nervous, anxious, or on edge: 0 = Not at all Not being able to stop or control worryin = Not at all Worrying too much about different things: 0 = Not at all Trouble relaxin = Not at all Being so restless that it is hard to sit still: 0 = Not at all Becoming easily annoyed or irritable: 0 = Not at all Feeling afraid as if something awful might happen: 0 = Not at all Total JEAN-7 score (0-4 normal; 5-9 mild; 10-14 moderate; 15-21 severe): 0 Source: Developed by Drs. Scott Alexander, Tawny Aguero, Gideon Gandara and colleagues, with an educational jac from [employer]. Review of Systems Const Reports weight loss Eyes Reports no additional complaints and Denies itchy eyes ENT Reports as per HPI and Denies lip swelling Card Denies chest pain, Denies chest pain with activity, Denies rapid heart rate, Denies edema, Denies irregular heart rhythm, Denies lightheadedness and Denies dyspnea Resp Denies dyspnea and Denies wheezing GI Reports no additional complaints Musc Denies abnormal gait, Denies back pain and Denies arthralgias Neuro Reports no additional complaints and Denies abnormal gait Psych Reports no additional complaints Endo Reports no additional complaints Stone/Lymph Reports no additional complaints Aller/Immun Denies itchy eyes, Denies lip swelling and Denies wheezing Physical exam (Primary Care) Vital Signs: Last Vital Signs Pulse 74 07/07/22 10:56 BP 100/66 07/07/22 10:56 Pulse Ox 95 07/07/22 10:56 Oxygen Delivery Method Room Air 07/07/22 10:56 BMI result Body Mass Index 31.7 Tobacco/Smoking Status: Tobacco use Status Tobacco use date assessed 07/07/22 07/07/22 11:02 Patient Tobacco Use Status Never used Tobacco 07/07/22 11:02 e-Cigarette/Vaping Use Never Used 07/07/22 11:02 PHQ-9: PHQ-9 Score PHQ-9: Total score 0 07/07/22 11:17 Thrive Assessment: Date of Thrive Assessment Date Thrive assessed 07/07/22 07/07/22 11:02 Const General: cooperative, comfortable and no acute distress Orientation/consciousness: patient oriented x3 Limitations: no limitations HENMA Head: Yes normocephalic Ears: hearing grossly normal bilaterally General nose exam: Normal external nose present and Abnormal mucous membranes and turbinates present boggy and pale bilateral Face and sinus: Yes face symmetric Mouth: Normal oral and palatal mucosa present Eyes General: appearance normal, both eyes and all related structures Neck Neck: Yes full ROM, Yes no lymphadenopathy and Yes supple Resp Effort & Inspection: normal respiratory effort and able to speak in complete sentences Auscultation: clear to auscultation bilaterally Cardio Rate: regular rate Rhythm: regular rhythm Heart sounds: S1 normal heart sound present and S2 normal heart sound present GI Palpation (GI): Soft to palpation, nontender, no guarding and no masses Auscultation: normal bowel sounds Neuro General: patient oriented x3, gait normal, tone normal, moves all extremities, Normal light touch and pain sensation and no focal motor deficits Extrem General: Yes normal to inspection, Yes full ROM, Yes no joint enlargement, Yes no pedal edema and Yes normal gait Results Reviewed Results Reviewed: ENTERED: 07/02/22 ROSEANNA REDDING: ORDERED: Met Prof Fast, AST, ALT, Lipid Panel Test Result Flag Reference Site Sodium 142 135-145 mmol/L Potassium 4.0 3.3-5.1 mmol/L CL 108 96-108 mmol/L CO2 27 22-29 mmol/L Gap 11 L 12-20 BUN 10 9-16 mg/dL Creat 0.76 0.5-1.4 mg/dL EGFR > 60 NOTE: For -Citizen Of [place] individuals, multiply the result by 1.210. Chronic Kidney Disease: Estimated GFR < 60 mL/min/1.73m2 Severe Kidney Disease: Estimated GFR < 15 mL/min/1.73m2 FBS 96 60-99 mg/dL CA 9.0 8.4-10.2 mg/dL AST (GOT) 15 5-37 U/L ALT (GPT) 15 0-40 U/L Triglyceride 108 mg/dL Desirable Triglyceride: less than 150 mg/dL Borderline High Triglyceride 150-199 mg/dL High Triglyceride: 200-499 mg/dL Very High Triglyceride: greater than or equal to 5OO mg/dL Chol 154 mg/dL Desirable Cholesterol: less than 200 mg/dL Borderline High Cholesterol: 200-239 mg/dL High Cholesterol: greater than 239 mg/dL LDL Calculated 81 mg/dl Desirable LDL: less than 100 mg/dL Near Optimal/Above Optimal LDL: 110-129 mg/dL Borderline High LDL: 130-159 mg/dL High LDL: 160-189 mg/dL Very High LDL: greater than or equal to 190 mg/dL HDL 52 mg/dL Desirable HDL: greater than 40 mg/dL Assessment and Plan Assessment & Plan (1) SARIKA on CPAP: Code(s): G47.33 - Obstructive sleep apnea (adult) (pediatric); Z99.89 - Dependence on other enabling machines and devices (2) Essential hypertension: Code(s): I10 - Essential (primary) hypertension (3) Benign prostatic hyperplasia: Code(s): N40.0 - Benign prostatic hyperplasia without lower urinary tract symptoms (4) Rhinitis: Code(s): J31.0 - Chronic rhinitis Medications: New azelastine administer into each nostril 1 spray intranasal BID 30 mL 0RF MDD rhinitis Coding Diagnoses SARIKA on CPAP G47.33; Z99.89 Essential hypertension I10 Benign prostatic hyperplasia N40.0 Rhinitis J31.0
== END 2022-07-07 14:22 | disposition home or self-care (01) ==
LOC: HO.HMGC 10:35
PROVIDERS: PCP Internal Medicine; Visit Provider Internal Medicine
DX: I10 Essential (primary) hypertension (principal); J30.89 Other allergic rhinitis; J45.20 Mild intermittent asthma, uncomplicated
CPT/HCPCS: 99499

== ENCOUNTER 2022-08-26 09:10 | Outpatient (REF) | payer MEDICARE, SELFPAY ==
[2022-08-26 10:46] LABS: Prostate Specific Antigen 3.74 ng/mL (<0.05-4.0)
== END 2022-08-26 09:11 | disposition home or self-care (01) ==
LOC: HO.LAB 09:10
PROVIDERS: PCP Internal Medicine; Visit Provider Urology
DX: Z12.5 Encounter for screening for malignant neoplasm of prostate (principal); N40.1 Benign prostatic hyperplasia with lower urinary tract symptoms
CPT/HCPCS: 36415; 84153

== ENCOUNTER 2023-03-30 09:49 | Outpatient (REF) | payer MEDICARE, SELFPAY ==
[2023-03-30 12:22] LABS: Prostate Specific Antigen 4.13 ng/mL (<0.05-4.0)
== END 2023-03-30 09:50 | disposition home or self-care (01) ==
LOC: HO.LAB 09:49
PROVIDERS: PCP Internal Medicine; Visit Provider Urology
DX: N40.1 Benign prostatic hyperplasia with lower urinary tract symptoms (principal); Z12.5 Encounter for screening for malignant neoplasm of prostate
CPT/HCPCS: 36415; 84153

== ENCOUNTER → 2023-05-15 08:32 | Outpatient (REF) | payer MEDICARE, SELFPAY ==
--- NOTE | 2023-05-15 08:42 | ECG_ITS ---
Test Reason : preop Blood Pressure : / mmHG Vent. Rate : 066 BPM Atrial Rate : 066 BPM P-R Int : 188 ms QRS Dur : 084 ms QT Int : 396 ms P-R-T Axes : 022 -04 -03 degrees QTc Int : 415 ms Normal sinus rhythm Possible Inferior infarct (cited on or before 24-MAR-2010) Abnormal ECG When compared with ECG of 16-MAY-2012 10:31, No significant change was found Referred By: Lisbeth Larose Electronically Signed By:BILL ELLIS
== END ==
LOC: HO.CARD 08:32
PROVIDERS: Visit Provider Anesthesiology
DX: Z01.818 Encounter for other preprocedural examination (principal)
CPT/HCPCS: 93005

== ENCOUNTER → 2023-05-15 08:42 | Outpatient (BNV) | payer MEDICARE, SELFPAY | PROVIDERS: Visit Provider Internal Medicine | DX: R94.31 Abnormal electrocardiogram [ECG] [EKG] (principal); Z01.818 Encounter for other preprocedural examination | CPT/HCPCS: 93010 ==

== ENCOUNTER 2023-08-15 09:16 | Outpatient (AMB) | payer MEDICARE, SELFPAY ==
[2023-08-15 09:20] VITALS: BP 130/70; PULSE 72; O2SAT 96; BMI 34.6
--- NOTE | 2023-08-15 09:20 | A.OFFVIS_ITS ---
Intake Vital Signs 08/15/23 09:20 Height 5 ft 9 in Weight 234 lb 2 oz BMI 34.6 BP 130/70 Blood Pressure Location Lt brachial Position Sitting Pulse 72 Pulse Source Pulse Oximeter Pulse Oximetry (%) 96 Oxygen Delivery Method Room Air Intake Visit Reasons: SWV [id number] Intake Note: Patient is here today for his Annual Wellness Visit. Last Lipid Panel 08/09/21 Last colonoscopy 09/29/16 Immunization: Influenza 03/20/19 Pneumococcal 07/10/18 Allergies morphine [Morphine] Allergy (Severe, Verified 08/15/23 13:59) VOMITING, gi upset, hallucinations, vomiting Medication List - Last Reconciled 08/15/23 by Melina Hou MD amlodipine 5 mg PO DAILY atenolol 25 mg PO DAILY azelastine 1 spray intranasal BID MDD rhinitis dutasteride 0.5 mg PO DAILY montelukast 10 mg PO BEDTIME tamsulosin mg PO Do you need a note to return to daycare/school/sports/work: No HPI SWV G0439 HPI Details SWV ? 73 year old male presents for his subsequent annual wellness visit. He had left total knee arthroplasty 04/15/2008, underwent revision left TKA to hinged knee replacement 05/23/2024, complicated by medial arthrotomy tear June 2023 for which she underwent repair of medial arthrotomy 07/04/[address] Rishi rosales at [facility] in [place] , now doing better and not requiring physical therapy.? He was placed on aspirin twice a day for 4 weeks for DVT prophylaxis , which she has now completed. He is ambulatory without any assistance He has mild intermittent asthma currently stable and controlled only on montelukast, and has obstructive sleep apnea currently compliant with CPAP, followed by Dr. Fenton. He sees a urologist in [place] for benign prostatic hyperplasia currently on dutasteride and tamsulosin. He has hypertension currently stable and controlled on atenolol and amlodipine. It was noted to be anemic on last lab done in May 2023, last fasting lipids and fasting blood sugar and hemoglobin A1c were within normal limits drawn 07/02/22. He had a colonoscopy done in [address] Zuluaga which showed presence of 2 tubular adenomas which were removed, overdue for repeat colonoscopy. He is up-to-date with his COVID vaccination including booster, last given 03/31/2023, up-to-date with his influenza vaccine, and pneumonia vaccination, received RSV vaccine 02/27/2023, and is up-to-date with his shingles vaccination. Patient states that he has already completed a living will, healthcare proxy and will bring copy to be included in his medical record ? Medical / Social History Reviewed? Past Medical History ?Yes . ? Kake of Care / Care Team list updated ?Yes . ? Surgical/Hospitalization History ?Yes . ? Current Medications (including OTC and supplements) ?Yes . ? Family History ?Yes . ? Tobacco Control form ?Yes . ? AUDIT-C (Alcohol use) form ?Yes . ? Illicit drug use in Social History ?Yes . ? Current diagnosis of depression? ?No ? Appropriate PHQ2/PHQ9 completed ?Yes . ? Data entered by ?Senior Infrastructure Engineer and reviewed by provider ? Fall Risk ? Fall History? Have you had any falls with injury in the past year? ?No . ? Have you had two or more falls in the past year? ?No . ? Fall Risk Assessment: ?No falls in the past year . ? HRA filled out by the patient, reviewed by Provider and scanned. ?SWV ? Balance? Romberg ?Yes . ? Tandem walk ?with difficulty. ? Walk and Turn ?Yes . ? Rise from sit to stand ?Yes . ?Vision? Corrective lens ?Yes ? Vision screen ? Up-to-date, sees Dr. Jacob ?Hearing? Whisper test ?fail, even with hearing aids in place ?Written Plan?Completed. See Patient Documents.? [facility]LY [facility] Medical History (Updated 08/15/23 @ 14:23 by Melina Hou MD) Anemia Hx of adenomatous polyp of colon Impaired fasting glucose Skin lesion of left ear Degenerative joint disease (DJD) of lumbar spine T12 compression fracture Mild intermittent asthma in adult without complication Environmental and seasonal allergies SARIKA on CPAP Essential hypertension Benign prostatic hyperplasia Surgical History History of excision of mass (03/18/22) History of lumbar spinal fusion Hx of cholecystectomy History of knee surgery Family History Father CAD (coronary artery disease) HTN (hypertension) CVD (cardiovascular disease) Mother Medical history non-contributory Social History Housing: House Alcohol intake: never Patient Tobacco Use Status: Never used Tobacco e-Cigarette/Vaping Use: Never Used Second Hand Smoke Exposure: No Current occupational status: retired Cognitive needs: No Hearing needs: Yes Vision needs: Yes Questionnaire Medicare Wellness Checkup [age] What gender do you identify with?: male During the past 4 weeks, how much have you been bothered by emotional problems such as feeling anxious, depressed, irritable, sad or downhearted, and blue?: not at all During the past 4 weeks, has your physical & emotional health limited your social activities with family, friends, neighbors, or groups?: not at all During the past 4 weeks, how much bodily pain have you generally had?: moderate pain During the past 4 weeks, was someone available to help you if you needed & wanted help?: yes, quite a bit During the past 4 weeks, what was the hardest physical activity you could do for at least 2 minutes?: moderate Can you get to places out of walking distance without help? (For eg., can you travel alone on buses, taxis or drive your car?): Yes Can you go shopping for groceries or clothes without someone's help?: Yes Can you prepare your own meals?: Yes Can you do your housework without help?: Yes Because of any health problems, do you need the help of another person with your personal care needs such as eating, bathing, dressing or getting around the house?: No Can you handle your own money without help?: Yes During the past 4 weeks, how would you rate your health in general?: very good During the past 4 weeks how have things been going for you?: pretty well Are you having difficulties driving your car?: no Do you always fasten your seat belt when you are in a car?: yes, usually During past 4 weeks, have you been bothered by the following: never: Falling or dizzy when standing up, Sexual problems?, Trouble eating well?, Teeth or denture problems? and Problems using the telephone? and seldom: Tiredness or fatigue? Have you fallen 2 or more times in the past year?: No Are you afraid of falling?: No Are you a smoker?: no During the past 4 weeks, how many drinks of wine, beer, or other alcoholic beverages did you have?: 1 drink or less per week Do you exercise for about 20 minutes 3 or more times a week?: no, I usually do not exercise this much Have you been given information to help with the following?: no: Hazards in your house that might hurt you? and no: Keeping track of your medications? How often do you have trouble taking medicines the way you have been told to take them?: I always take medicine as prescribed How confident are you that you can control & manage most of your health problems?: very confident What is your race?: White Mini Mental State Exam (MMSE) Orientation What is the (year) (season) (date) (day) (month)?: year (2023), season (Winter), date (08/15/2023), day (Monday) and month (August) Where are we (state) (county) (town or city) (hospital) (floor)?: state ([place]), county ([place]), town or city ([place]) and hospital/clinic ([facility]) Score Score: 9 Activity of Daily Living Bathing - sponge bath, tub bath or shower: receives no assistance (gets in/out by self, if usual bathing means Dressing - getting clothes from closets & drawers, including inner/outer garments & fasteners.: gets clothes & gets completely dressed without help Toileting - going to the 'toilet room' for urine/bowel elimination & cleaning self/arranging clothes: goes to toilet room, cleans self, arranges clothes without help Transfer: moves in & out of bed and chair without help (may use support object) Continence: controls urination/bowel movements completely by self Feeding: feeds self without help Total Score: 0 Information obtained from: patient Using telephone: independent Traveling: independent Shopping: independent Preparing meals: independent Housework: independent Taking medicine: independent Managing money: independent PHQ-9 Over the last 2 weeks, how often have you been bothered by any of the following problems? 1. Little interest or pleasure in doing things: not at all 2. Feeling down, depressed, or hopeless: not at all 3. Trouble falling or staying asleep, or sleeping too much: not at all 4. Feeling tired or having little energy: not at all 5. Poor appetite or overeating: not at all 6. Feeling bad about yourself - or that you are a failure or have let yourself or your family down: not at all 7. Trouble concentrating on things, such as reading the newspaper or watching television: not at all 8. Moving or speaking so slowly that other people could have noticed. Or the opposite - being so fidgety or restless that you have been moving around a lot more than usual: not at all 9. Thoughts that you would be better off or of hurting yourself in some way: not at all Total score: 0 Depression Screening Interpretation: Negative Depression Screening Done: Yes 70267 - PHQ-9 Billing: Yes Source: Developed by Drs. Scott Alexander, Tawny Aguero, Gideon Gandara and colleagues, with an educational jac from [employer]. Physical Exam Vital Signs: Last Vital Signs Pulse 72 08/15/23 09:20 BP 130/70 08/15/23 09:20 Pulse Ox 96 08/15/23 09:20 Oxygen Delivery Method Room Air 08/15/23 09:20 BMI result Body Mass Index 34.6 Assessment & Plan Assessment & Plan (1) Hx of adenomatous polyp of colon: Code(s): Z86.010 - Personal history of colonic polyps Plan: Referred to Dr. Zuluaga for his repeat colonoscopy (2) Mild intermittent asthma in adult without complication: Code(s): J45.20 - Mild intermittent asthma, uncomplicated Plan: Stable controlled on montelukast, followed by Dr. Fenton (3) Environmental and seasonal allergies: Code(s): J30.89 - Other allergic rhinitis Plan: Currently on montelukast (4) Essential hypertension: Code(s): I10 - Essential (primary) hypertension Plan: Blood pressure at goal of less than 130/80. Continue with current medication. Reinforced importance of following a low sodium diet, getting regular exercise, and lowering stress levels. (5) Benign prostatic hyperplasia: Code(s): N40.0 - Benign prostatic hyperplasia without lower urinary tract symptoms Qualifiers: Lower urinary tract symptom presence: symptoms absent Qualified Code(s): N40.0 - Benign prostatic hyperplasia without lower urinary tract symptoms Plan: Continued on dutasteride and tamsulosin, followed by Urology in [place] (6) SARIKA on CPAP: Code(s): G47.33 - Obstructive sleep apnea (adult) (pediatric); Z99.89 - Dependence on other enabling machines and devices Plan: Continued on CPAP and encouraged to lose more weight (7) Anemia: Code(s): D64.9 - Anemia, unspecified Qualifiers: Anemia type: unspecified type Qualified Code(s): D64.9 - Anemia, unspecified Plan: Ordered a CBC and iron profile Orders: Orders Complete Blood Count Auto Diff Today D64.9 - Anemia, unspecified, G47.33 - Obstructive sleep apnea (adult) (pediatric), I10 - Essential (primary) hypertension, J30.89 - Other allergic rhinitis, J45.20 - Mild intermittent asthma, uncomplicated, S22.080A - Wedge compression fracture of T11-T12 vertebra, initial encounter for closed fracture, Z86.010 - Personal history of colonic polyps, Z99.89 - Dependence on other enabling machines and devices Basic Metabolic Panel Fasting Today D64.9 - Anemia, unspecified, G47.33 - Obstructive sleep apnea (adult) (pediatric), I10 - Essential (primary) h ypertension, J30.89 - Other allergic rhinitis, J45.20 - Mild intermittent asthma, uncomplicated, S22.080A - Wedge compression fracture of T11-T12 vertebra, initial encounter for closed fracture, Z86.010 - Personal history of colonic polyps, Z99.89 - Dependence on other enabling machines and devices Aspartate Amino Transferase Today D64.9 - Anemia, unspecified, G47.33 - O bstructive sleep apnea (adult) (pediatric), I10 - Essential (primary) hypertension, J30.89 - Other allergic rhinitis, J45.20 - Mild intermittent asthma, uncomplicated, S22.080A - Wedge compression fracture of T11-T12 vertebra, initial encounter for closed fracture, Z86.010 - Personal history of colonic polyps, Z99.89 - Dependence on other enabling machines and devices Lipid Panel Today D64.9 - Anemia, unspecified, G47.33 - Obstructive sleep apnea (adult) (pediatric), I10 - Essential (primary) hypertension, J30.89 - Other allergic rhinitis, J45.20 - Mild intermittent asthma, uncomplicated, S22.080A - Wedge compression fracture of T11-T12 vertebra, initial encounter for closed fracture, Z86.010 - Personal history of colonic polyps, Z99.89 - Dependence on other enabling machines and devices Alanine Aminotransferase Today D64.9 - Anemia, unspecified, G47.33 - Obstructive sleep apnea (adult) (pediatric), I10 - Essential (primary) hypertension, J30.89 - Other allergic rhinitis, J45.20 - Mild intermittent asthma, uncomplicated, S22.080A - Wedge compression fracture of T11-T12 vertebra, initial encounter for closed fracture, Z86.010 - Personal history of colonic polyps, Z99.89 - Dependence on other enabling machines and devices Vitamin D 25-OH Total Today D64.9 - Anemia, unspecified, G47.33 - Obstructive s leep apnea (adult) (pediatric), I10 - Essential (primary) hypertension, J30.89 - Other allergic rhinitis, J45.20 - Mild intermittent asthma, uncomplicated, S22.080A - Wedge compression fracture of T11-T12 vertebra, initial encounter for closed fracture, Z86.010 - Personal history of colonic polyps, Z99.89 - Dependence on other enabling machines and devices Referrals Gastroenterology Referral Z86.010 - Personal history of colonic polyps Quality Reporting (2019) Depression/Bipolar (159/160/161/177) PHQ-9: Total score: 0 Coding Level of Care Code Medicare Subsequent (G0439) Diagnoses Hx of adenomatous polyp of colon Z86.010 Mild intermittent asthma in adult without complication J45.20 Environmental and seasonal allergies J30.89 Essential hypertension I10 Benign prostatic hyperplasia without lower urinary tract symptoms N40.0 Lower urinary tract symptom presence: symptoms absent SARIKA on CPAP G47.33; Z99.89 Anemia, unspecified type D64.9 Anemia type: unspecified type CPT Codes Advance Care Planning - Time spent: 1-15 minutes, not on file ([id number]) Advance Care Planning Advance Care Planning discussion: Exists, not on file Date of discussion: 08/15/23 Who was present: Patient Forms completed: None (Will provide copy of healthcare proxy and living will) Time spent: 1-15 minutes, not on file Actual minutes spent: 15
== END 2023-08-15 10:23 | disposition home or self-care (01) ==
PROVIDERS: PCP Internal Medicine; Visit Provider Internal Medicine
DX: Z00.00 Encounter for general adult medical examination without abnormal findings (principal); Z86.010 Personal history of colon polyps; J45.20 Mild intermittent asthma, uncomplicated; J30.89 Other allergic rhinitis; I10 Essential (primary) hypertension; N40.0 Benign prostatic hyperplasia without lower urinary tract symptoms; G47.33 Obstructive sleep apnea (adult) (pediatric); Z99.89 Dependence on other enabling machines and devices; D64.9 Anemia, unspecified
CPT/HCPCS: 1124F; G0439

== ENCOUNTER → 2023-10-03 07:58 | Outpatient (BNVA) | payer MEDICARE, SELFPAY | PROVIDERS: PCP Internal Medicine; Visit Provider Physician Assistant ==

== ENCOUNTER 2023-10-26 06:14 | Outpatient (REF) | payer MEDICARE, SELFPAY ==
[2023-10-26 06:28] LABS: MANUAL DIFF FLAG NO
[2023-10-26 07:46] LABS: Basophils Percent Auto 0.8 % (0-2); Eosinophils Absolute Auto 0.2 X10*3/uL (0.0-0.4); Eosinophils Percent Auto 3.5 % (0-4); Hematocrit 40.3 % (42.0-52.0); Hemoglobin 13.5 g/dl (14.0-18.0); Imm Gran Abs Auto 0.03 X10*3/uL (0.00-0.03); Imm Gran Pct Auto 0.6 % (0.0-0.4); Lymphocytes Absolute Auto 1.8 X10*3/uL (1.2-4.9); Lymphocytes Percent Auto 36.4 % (20-40); Mean Corpuscular HGB Conc 33.5 g/dl (31.0-36.0); Mean Corpuscular Hemoglobin 31.5 pg (27.0-33.0); Mean Corpuscular Volume 93.9 fL (80.0-98.0); Mean Platelet Volume 11.1 fL (9.4-12.4); Monocytes Absolute Auto 0.4 X10*3/uL (0.1-1.2); Monocytes Percent Auto 8.2 % (2-11); Neutrophils Absolute Auto 2.5 x10*3/uL (2.0-8.3); Neutrophils Percent Auto 50.5 % (45-73); Platelet Count 160 X10*3/uL (160-400); Red Blood Count 4.29 X10*6/uL (4.60-5.80); Red Cell Distribution Width 14.4 % (11.0-16.0); White Blood Count 4.9 X10*3/uL (4.8-10.8)
[2023-10-26 08:26] LABS: Alanine Aminotransferase 11 U/L (0-40); Anion Gap 13 (12-20); Aspartate Amino Transferase 13 U/L (5-37); Blood Urea Nitrogen 13 mg/dL (9-16); Calcium 9.2 mg/dL (8.4-10.2); Carbon Dioxide 25 mmol/L (22-29); Chloride 107 mmol/L (96-108); Cholesterol 150 mg/dL (<200); Estimated Glomerular Filt Rate > 60; Glucose Fasting 92 mg/dL (60-99); HDL Cholesterol 63 mg/dL (>40); LDL Cholesterol Calculated 70 mg/dL (<100); Potassium 3.8 mmol/L (3.3-5.1); Sodium 141 mmol/L (135-145); Triglycerides 88 mg/dL (<150)
[2023-10-26 08:37] LABS: Prostate Specific Antigen 3.32 ng/mL (<0.05-4.0)
[2023-10-26 08:46] LABS: Vitamin D 25-OH Total 46.4 ng/mL (>30)
== END 2023-10-26 06:15 | disposition home or self-care (01) ==
LOC: HO.LAB 06:14
PROVIDERS: Absent Provider Urology; PCP Internal Medicine; Visit Provider Internal Medicine
DX: N40.3 Nodular prostate with lower urinary tract symptoms (principal); Z12.5 Encounter for screening for malignant neoplasm of prostate
CPT/HCPCS: 36415; 80048; 80061; 82306; 84153; 84450; 84460; 85025

== ENCOUNTER 2024-01-03 10:50 | Outpatient (AMB) | payer MEDICARE, SELFPAY ==
[2024-01-03 10:58] VITALS: BP 130/64; PULSE 87; BMI 33.9
--- NOTE | 2024-01-03 10:58 | MHC.OFFVIS ---
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 No EKG was performed. This was during a routine GI visit and he is scheduled for undergoing colonoscopy in the future. He comes for evaluation for this irregular heartbeat. He denies any symptoms related to this. He denies any skipped heartbeats, fluttering in his chest, palpitations. He said he occasionally gets lightheaded but this is not unusual. He does not have any restriction to his activity level. Does have chronic shortness of breath related to his asthma he says. He has no history of exertional chest pain. No recent changes in his health. He has been taking his medications for high blood pressure for a long time. I reviewed EKGs a blue many years ago and there is no mention of any arrhythmias in the past. In fact earlier this year he underwent knee surgery in [place] and during the hospitalization he had no arrhythmias noted. He takes all his medications regularly. Has never had any prior vascular or cardiac events. Comes for further evaluation. [facility] Medical History Anemia Hx of adenomatous polyp of colon Impaired fasting glucose Skin lesion of left ear Degenerative joint disease (DJD) of lumbar spine T12 compression fracture Mild intermittent asthma in adult without complication Environmental and seasonal allergies SARIKA on CPAP Essential hypertension Benign prostatic hyperplasia Surgical History History of excision of mass (03/18/22) History of lumbar spinal fusion Hx of cholecystectomy History of knee surgery Family History Father CAD (coronary artery disease) HTN (hypertension) CVD (cardiovascular disease) Mother Medical history non-contributory Social History Housing: House Alcohol intake: current Alcohol intake frequency: holidays/special occasions only Patient Tobacco Use Status: Never used Tobacco e-Cigarette/Vaping Use: Never Used Second Hand Smoke Exposure: No Current occupational status: retired Cognitive needs: No Hearing needs: Yes Vision needs: Yes Review of Systems Const Denies weakness ENT Denies dizziness Card Denies chest pain, Denies chest pain with activity, Denies syncope, Denies rapid heart rate, Denies pedal edema, Denies edema, Denies leg edema, Denies lightheadedness, Denies palpitations, Denies dyspnea, Denies dyspnea on exertion and Denies orthopnea Resp Denies cough, Denies dyspnea and Denies dyspnea on exertion GI Denies hematochezia and Denies change in stool character Musc Denies abnormal gait, Denies muscle cramps, Denies muscle weakness, Denies numbness, Denies radiating pain into limb and Denies tingling Neuro Denies abnormal gait, Denies dizziness, Denies syncope, Denies numbness, Denies tingling and Denies weakness Endo Denies palpitations Physical Exam Vital Signs: Last Vital Signs Pulse 87 01/03/24 10:58 BP 130/64 01/03/24 10:58 BMI result Body Mass Index 33.9 Const General: cooperative, comfortable, no acute distress, alert, awake and well groomed Nutritional Appearance: obese Orientation/consciousness: patient oriented x3 Limitations: no limitations HEENT Head: Yes normocephalic and Yes atraumatic Neck Neck: Yes trachea midline, Yes supple and Yes no JVD Resp Effort & Inspection: normal respiratory effort Auscultation: clear to auscultation bilaterally Cardio Jugular venous distension: no JVD Palpation: normal PMI Rate: regular rate Rhythm: abnormal rhythm with ectopic beats Heart sounds: S1 normal heart sound present, S2 normal heart sound present, no click, no gallops and no murmurs GI Auscultation: normal bowel sounds Skin General skin exam: no rashes or lesions noted Neuro General: patient oriented x3 and no focal motor deficits Extrem General: Yes no clubbing, cyanosis or edema Office Procedures EKG Details: EKG shows normal sinus rhythm with frequent PVCs with multifocal origin [id number], Complete Assessment & Plan Assessment & Plan (1) PVCs (premature ventricular contractions): Code(s): I49.3 - Ventricular premature depolarization Category: Medical Plan: Patient with new onset cardiac arrhythmias with frequent PVCs noted of multifocal origin. Unclear etiology. He currently has no active cardiovascular symptoms but he has limited activity level due to his knee issues. He to evaluate for underlying structural heart abnormality and rule out myocardial ischemia as well as LV systolic dysfunction. Will suggest echocardiogram in near future as well as a myocardial perfusion imaging with vaso dilator as he can not exercise on the treadmill. Further treatment based on the findings of his testing. Will also suggest a Holter monitor to assess for frequency of these arrhythmias. He is currently asymptomatic and I would not start any new medical therapy on him at this point in time. His colonoscopy needs to be postponed pending test results Will follow up in the clinic in 6 weeks time after above-mentioned test. Thank you for allowing me to partake in his care Orders: Orders ECG 3 day holter monitor Today I49.3 - Ventricular premature depolarization CA echo transthoracic complete Today I49.3 - Ventricular premature depolarization CA lexiscan stress w clif Today I49.3 - Ventricular premature depolarization Coding Level of Care Code New Pt Level 4 (39789) Diagnoses PVCs (premature ventricular contractions) I49.3 CPT Codes EKG - CPT: 66261-[id number], Complete ([id number])
== END 2024-01-03 11:21 | disposition home or self-care (01) ==
PROVIDERS: PCP Internal Medicine; Visit Provider Internal Medicine Cardiovascular Disease
DX: I49.3 Ventricular premature depolarization (principal)
CPT/HCPCS: 93010; 99204

== ENCOUNTER → 2024-01-03 10:50 | Outpatient (BNVA) | payer MEDICARE, SELFPAY | PROVIDERS: PCP Internal Medicine; Visit Provider Internal Medicine Cardiovascular Disease | DX: I49.3 Ventricular premature depolarization (principal) | CPT/HCPCS: 93005; 99202 ==

== ENCOUNTER → 2024-01-09 08:46 | Outpatient (REF) | payer MEDICARE, SELFPAY ==
--- NOTE | ~2024-01-09 | NM_ITS ---
Lexiscan Myocardial perfusion study Indication: Abnormal EKG Technique: The patient was brought in for a Lexiscan perfusion study on 01/09/2024 and was injected 0.4 mg of Lexiscan intravenously. Within a minute of this injection 35 mCi of sestamibi was given intravenously. Images were obtained using the SPECT gamma camera interlaced with the gating device. Images were obtained in supine position. Resting perfusion study was performed on 01/10/2024. Patient was administered 35 mCi of sestamibi intravenously at rest. Images were then obtained in supine position. Images were processed with the software and compared side to side in short axis, horizontal long axis and vertical long axis views. Total DLP 134mGy-cm. Findings: Raw acquisition reviewed. The stress perfusion study showed no significant perfusion abnormality. Both uncorrected as well as CT attenuation corrected images were reviewed. The gated study shows normal LV systolic function with calculated LVEF of 70%. LV cavity is normal in size. The gated study shows normal wall thickening and contraction of segments. Resting study shows no significant perfusion abnormality. Gating at rest reveals normal wall motion with ejection fraction at 66%. The findings are consistent with no clear reversible or fixed perfusion abnormality. NM/NM clif perf SPECT rest & str Impression: 1. Myocardial perfusion imaging study shows probably normal myocardial perfusion. No clear evidence of any ischemia or infarction. 2. Gated LVEF is 70% during stress and 66% during rest. 3. Transient ischemic dilatation not present. EKG component of the test reported separately.
--- NOTE | 2024-01-09 08:50 | CA_ITS ---
Acquisition Time: 2024-01-09 08:54:04 Total Exercise Time: 00:02:00 Test Indications: Abnormal ECG PVC'S Medications: AMLODIPINE ATENOLOL TAMSULOSIN SINGULAIR DUTASTERIDE Protocol: LEXISCAN Max HR: 122 BPM 82% of Pred: 147 BPM Max BP: 132/068 mmHG Max Work Load: 1.0 METS Pharmacological stress test with Lexiscan injection, without anginal symptoms,with ventricular bigeminy, isolated PVCs, venticular cuplet, with normotensive response to exercise, with nondiagnsoitiic EKGs. Aminophylline 75 mg IVP given to reverse Lexiscan. Nuclear images pending. Test reviewed with Dr. Brice. Referred By: Alek Hernandez Overread By: Mignon Mary
== END ==
LOC: HO.CARD 08:46
PROVIDERS: PCP Internal Medicine; Visit Provider Internal Medicine Cardiovascular Disease
DX: I49.3 Ventricular premature depolarization (principal)
CPT/HCPCS: 78452; 93017; A9500; J0280; J2785

== ENCOUNTER → 2024-01-09 08:50 | Outpatient (BNV) | payer MEDICARE, SELFPAY | PROVIDERS: PCP Internal Medicine; Visit Provider Nurse Practitioner | DX: R94.31 Abnormal electrocardiogram [ECG] [EKG] (principal) | CPT/HCPCS: 78452; 93016; 93018 ==

== ENCOUNTER → 2024-01-23 09:57 | Outpatient (REF) | payer MEDICARE, SELFPAY ==
--- NOTE | 2024-01-23 10:02 | HM_ITS ---
* Total monitoring time 3 days. * Underlying rhythm is sinus. Average ventricular rate 76/Min. * Frequent ventricular ectopy with a burden of 12%. Frequent bigeminy. Rare couplets, triplets. Mostly unifocal. 7 runs noted. Longest 3 beats. * Rare supraventricular ectopy. * No significant pauses or AV blocks. * No patient markers or diary events. MTDD
--- NOTE | 2024-01-23 10:02 | CA_ITS ---
Transthoracic Echocardiogram Patient (Last, First, Middle): Levi Barton L Gender: Male Date of : 1950 Age: 73 Procedure Date: 01/23/2024 Procedure Type: Transthoracic Echocardiogram Location: OP Height: 175.26 cm Weight: 99.79 kg BSA: 2.15 m2 Heart Rate: bpm BP: 120 / 76 mmHg Computer Systems Analyst: ASPEN Referring MD: Alek Hernandez MD Symptoms: I49.3 - Ventricular premature depolarization Study Quality: Fair ECG Rhythm: Sinus Conclusions: - The left ventricular systolic function is normal. The visually estimated ejection fraction is between 65-70%. - There is mild calcification of the aortic valve. - There is moderate mitral annular calcification. - No obvious valvular pathology seen on this study. Findings Left Ventricle Normal left ventricular cavity size. There is mildly increased left ventricular wall thickness. The left ventricular systolic function is normal. The visually estimated ejection fraction is between 65-70%. There is no evidence of regional wall motion abnormalities. Evidence suggests grade I (mild) diastolic dysfunction. Right Ventricle Normal right ventricular cavity size and systolic function. Atria The left atrium is moderately dilated. The right atrium is normal in size. Aortic Valve There is a normal trileaflet aortic valve. There is mild calcification of the aortic valve. There is no aortic valve stenosis. There is trace (trivial) aortic valve regurgitation. Mitral Valve There is moderate mitral annular calcification. There is trace mitral valve regurgitation. There is no mitral valve stenosis. Pulmonic Valve There is trace pulmonic valve regurgitation. Tricuspid Valve Normal tricuspid valve structure. There is trace tricuspid valve regurgitation. There is no evidence of pulmonary hypertension. Great Vessels The asc aorta is normal in size. Venous The inferior vena cava is normal in size and collapses greater than 50% with inspiration. Pericardium/Pleural There is a trivial pericardial effusion. Prior Study Comparison No significant change compared to prior study dated: 02/01/2006. Recommendations, Care & Conclusions No obvious valvular pathology seen on this study. Measurements 2D Linear Measurements IVSd: 1.31 0.6-0.9/0.6-1.0 cm LVIDd: 4.84 3.9-5.3/4.2-5.9 cm LVIDd Index: 2.25 2.4-3.2/2.2-3.1 cm/m2 LVIDs: 2.95 2.0-3.6 cm LVPWd: 1.09 0.7-1.1 cm LA Diam: 5.00 2.7-3.8/3.0-4.0 cm LAIDs Index: 2.33 1.5-2.3 cm/m2 LV Mass: 276.77 67-162/88-224 g LV Mass Index: 128.73 43-95/49-115 g/m2 LVOT Diam: 2.00 3.0+(-)1.3 cm 2D Systolic Function EF 4C: 63.90 >55% EF 2C: 64.60 >55% EF BiP: 64.90 >55% Mitral Valve MV Pk E: 0.98 MV PK A: 1.29 MV Decel Time: 307.00 E/A: 0.80 E'Lateral: 4.72 E'Medial: 4.09 E/E' Med: 24.00 E/E' Lat: 20.80 PHT: 90.00 MVA PHT: 2.44 Decel Kane: 3.21 Aortic Valve AoV Pk Markel: 1.67 AoV Mn Markel: 0.99 AoV VTI: 0.37 AoV Pk Grad: 11.00 Aov Mn Grad: 5.00 SHU Cont.VTI: 2.86 LVOT LVOT Pk Markel: 1.40 LVOT Mn Markel: 0.90 LVOT VTI: 0.34 LVOT Pk Grad: 8.00 LVOT Mn Grad: 4.00 LVOT Diam: 2.00 LVOT Area: 3.14 Diastolic Function MV Pk E: 0.98 MV Pk A: 1.29 E/A: 0.80 E'Medial: 4.09 E/E' Med: 24.00 E' Laterial: 4.72 E/E' Lat: 20.80 Right Ventricle TAPSE (mm): 27.00 TVS' Markel: 13.70 Tricuspid Valve TR Pk Markel: 2.59 TR Pk Grad: 27.00 RA Press: 8.00 RVSP: 35.00 Great Vessels Aorta Sinus of Valsalva: 3.95 2.0-3.[address] [place]: 3.40 1.7-3.4 cm Ao Asc: 3.80 2.1-3.4 cm Updated in Other Vendor System with Status of Final Kelechi Zimmerman MD electronically signed on 01/24/2024 12:29:42 PM with status of Final
== END ==
LOC: HO.CARD 09:57
PROVIDERS: PCP Internal Medicine; Visit Provider Internal Medicine Cardiovascular Disease
DX: I49.3 Ventricular premature depolarization (principal)
CPT/HCPCS: 93242; 93306

== ENCOUNTER → 2024-01-23 10:02 | Outpatient (BNV) | payer MEDICARE, SELFPAY | PROVIDERS: PCP Internal Medicine; Visit Provider Internal Medicine | DX: I49.8 Other specified cardiac arrhythmias (principal) | CPT/HCPCS: 93244; 93306 ==

== ENCOUNTER 2024-02-26 08:09 | Outpatient (AMB) | payer MEDICARE, SELFPAY ==
--- NOTE | 2024-02-26 08:13 | MHC.OFFVIS ---
Vital Signs 02/26/24 08:14 Height 5 ft 9 in Weight 238 lb 8.642 oz BMI 35.2 BP 134/62 Blood Pressure Location Lt brachial Position Sitting Pulse 71 Pulse Source Pulse Oximeter Intake Visit Reasons: 6 wk f/up testing Jigmaker Required: No Allergies morphine [Morphine] Allergy (Severe, Verified 02/26/24 08:15) VOMITING, gi upset, hallucinations, vomiting Medication List - Last Reconciled 02/26/24 by Gricel Porras, RADHA-C amlodipine 5 mg PO DAILY atenolol 50 mg PO DAILY dutasteride 0.5 mg PO DAILY montelukast 10 mg PO BEDTIME tamsulosin mg PO HPI HPI 6 wk f/up testing: Details: Levi is a 73-year-old male past medical history of hypertension, sleep apnea with CPAP use who was recently seen for irregularity to his heartbeat. He is preop for colonoscopy. He underwent a Holter monitor, echocardiogram and nuclear stress test and now presents for follow-up. Today he reports that he feels well with no concerning symptoms. He denies chest discomfort at rest or with activity. Denies heart palpitations, lightheadedness, presyncope, syncope. No shortness of breath, PND, orthopnea or edema. Does have issues with his left knee which does affect his activity level. He is compliant with his meds. His son Malik is on speaker phone during this visit. FORMERLY [facility], 1928–1983 Medical History Anemia Hx of adenomatous polyp of colon Impaired fasting glucose Skin lesion of left ear Degenerative joint disease (DJD) of lumbar spine T12 compression fracture Mild intermittent asthma in adult without complication Environmental and seasonal allergies SARIKA on CPAP Essential hypertension Benign prostatic hyperplasia Surgical History History of excision of mass (03/18/22) History of lumbar spinal fusion Hx of cholecystectomy History of knee surgery Family History Father CAD (coronary artery disease) HTN (hypertension) CVD (cardiovascular disease) Mother Medical history non-contributory Social History Housing: House Alcohol intake: current Alcohol intake frequency: holidays/special occasions only Patient Tobacco Use Status: Never used Tobacco e-Cigarette/Vaping Use: Never Used Second Hand Smoke Exposure: No Current occupational status: retired Cognitive needs: No Hearing needs: Yes Vision needs: Yes Review of Systems Const All systems reviewed & are unremarkable except as noted in HPI and below Card Denies chest pain, Denies chest pain at rest, Denies chest pain with activity, Denies rapid heart rate, Denies irregular heart rhythm, Denies dyspnea on exertion and Denies orthopnea Resp Denies dyspnea on exertion GI Denies no additional complaints Musc Denies no additional complaints Physical Exam Vital Signs: Last Vital Signs Pulse 71 02/26/24 08:14 BP 134/62 02/26/24 08:14 BMI result Body Mass Index 35.2 Const General: cooperative, healthy appearing, comfortable and no acute distress Orientation/consciousness: patient oriented x3 Neck Neck: Yes normal visual inspection and Yes no JVD Resp Effort & Inspection: normal respiratory effort Auscultation: clear to auscultation bilaterally, no crackles, no rales, no rhonchi and no wheezes Cardio Jugular venous distension: no JVD Rate: regular rate Rhythm: regular rhythm Heart sounds: S1 normal heart sound present, S2 normal heart sound present, no murmurs and no rubs Neuro General: patient oriented x3 Extrem General: Yes normal to inspection, No no pedal edema and No calf tenderness Psych Appearance: grossly normal Mental Status: mental status grossly normal Speech and movement: Normal speech and movement present Assessment & Plan Assessment & Plan (1) PVCs (premature ventricular contractions): Code(s): I49.3 - Ventricular premature depolarization Category: Medical Plan: Recently referred to Cardiology for irregularity to his heartbeat. He had a EKG done last visit showing sinus rhythm with sinus arrhythmia and frequent multifocal PVCs. He then had a Holter monitor on 01/23/2024 for 3 days which showed sinus rhythm, rate 76, frequent PVCs, 12% with bigeminy and rare couplets and triplets, rare supraventricular ectopy. An echocardiogram was done 01/23/2024 showing EF 65-70%, mild calcification of the aortic valve and moderate mitral annular calcification. A nuclear stress test was done 01/10/2024 showing normal myocardial perfusion imaging. His atenolol dose was increased from 25 mg up to 50 mg daily. Today he reports feeling well with no concerning symptoms. He has no heart palpitations. He admits to drinking 5-6 caffeinated coffees per day. Heart tones are regular on my exam. Will have him continue atenolol 50 mg daily. Instructed to cut caffeinated beverages down to 1 per day and then have decaf after that if needed. Diagnosis of PVCs reviewed with him. Will check Holter prior to his next visit. Cardiology follow-up 6 months, sooner if needed. (2) Essential hypertension: Code(s): I10 - Essential (primary) hypertension Category: Medical Plan: Well controlled at this time. No medication changes made. (3) SARIKA on CPAP: Code(s): G47.33 - Obstructive sleep apnea (adult) (pediatric); Z99.89 - Dependence on other enabling machines and devices Category: Medical Plan: Compliant with CPAP (4) Preop cardiovascular exam: Code(s): Z01.810 - Encounter for preprocedural cardiovascular examination Category: Medical Plan: Preop for colonoscopy. He may proceed with low to intermediate cardiac risk. He does have known frequent PVCs however EF and nuclear stress test are normal. Continue atenolol without interruption. Call/consult Cardiology if needed. Plan Time spent on chart review, documentation, interview and assessment Coding Level of Care Code Est Pt Level 4 (52937) Diagnoses PVCs (premature ventricular contractions) I49.3 Essential hypertension I10 SARIKA on CPAP G47.33; Z99.89 Preop cardiovascular exam Z01.810 Time Spent (min) 28
[2024-02-26 08:14] VITALS: BP 134/62; PULSE 71; BMI 35.2
== END 2024-02-26 08:33 | disposition home or self-care (01) ==
PROVIDERS: PCP Internal Medicine; Visit Provider Nurse Practitioner Family
DX: I49.3 Ventricular premature depolarization (principal); I10 Essential (primary) hypertension; G47.33 Obstructive sleep apnea (adult) (pediatric); Z99.89 Dependence on other enabling machines and devices; Z01.810 Encounter for preprocedural cardiovascular examination
CPT/HCPCS: 99214

== ENCOUNTER → 2024-02-26 08:09 | Outpatient (BNVA) | payer MEDICARE, SELFPAY | PROVIDERS: PCP Internal Medicine; Visit Provider Nurse Practitioner Family | DX: Z01.810 Encounter for preprocedural cardiovascular examination (principal); I10 Essential (primary) hypertension; I49.3 Ventricular premature depolarization; G47.33 Obstructive sleep apnea (adult) (pediatric); Z99.89 Dependence on other enabling machines and devices | CPT/HCPCS: 99212 ==

== ENCOUNTER 2024-03-05 07:13 | Day surgery (SDC) | payer MEDICARE, SELFPAY ==
[2024-02-26 09:44] VITALS: BMI 33.2
[2024-03-05 08:12] VITALS: BP 151/88; PULSE 62; RESP 18; TEMP 36.2; O2SAT 96; BMI 33.2
--- NOTE | 2024-03-05 08:19 | P.HPSUR_ITS ---
Pre-Procedural Eval Section A - 24 Hr Update-Section A only Date of Service: 03/05/24 Section B - Complete if H&P > 30 days Chief Complaint: colonic polyps Relevant Family History (Specify if Yes): No Relevant Social History: None Present Medications: see Short Stay Collaborative assessment Medical History: Significant History (Inguinal hernia GERD (gastroesophageal reflux disease) Anemia Hx of adenomatous polyp of colon Impaired fasting glucose Skin lesion of left ear Degenerative joint disease (DJD) of lumbar spine T12 compression fracture Mild intermittent asthma in adult without complication En vironmental and seasonal ) History of Previous Operations: Relevant previous surgery/procedure and date(s) (History of back surgery History of total left knee replacement History of excision of mass (03/18/22) History of lumbar spinal fusion Hx of cholecystectomy History of knee surgery) Allergies: Allergies Allergy/AdvReac Type Severity Reaction Status Date / Time morphine [Morphine] Allergy Severe VOMITING, Verified 02/26/24 08:15 gi upset, hallucinations, vomiting albuterol Allergy Unknown Verified 02/26/24 09:24 Review of Systems Sugical H&P ROS: Negative: Constitution, Cardiovascular, Respiratory, Neurological, Psychiatric, Hem-Onc, Allergic/Immunologic, Gastrointestinal, Genitourinary, Musculoskeletal, Integumentary, Endocrine and Eyes/Ears/Nose/Throat Exam Surgical H&P Exam: Normal: HEENT, Normal: Heart, Normal: Lungs, Normal: Extremities, Normal: Abdomen, Normal: Skin and Normal: Neurological Plan Diagnosis/Plan: Unchanged I have reviewed the history and physical and performed a pertinent physical examination on my patient. No changes have occurred unless specified. Time Spent With Patient Time: Total time managing care of this patient today ____ minutes.
--- NOTE | 2024-03-05 08:40 | P.CONAN_ITS ---
Documented by User: Edel Faulkner NP 03/04/24 09:07 HPI - Anesthesia Eval Consult details Narrative: 73yo M for Colonoscopy Cardiac optimized (Freq PVCs, but EF and stress nml) [facility] Active Problems Active Problems: All Active Problems Preop cardiovascular exam (Acute) PVCs (premature ventricular contractions) (Acute) Tachycardia (Acute) Arrhythmia (Acute) Anemia (Acute) Hx of adenomatous polyp of colon (Acute) Degenerative joint disease (DJD) of lumbar spine (Acute) T12 compression fracture (Acute) Mild intermittent asthma in adult without complication (Acute) Environmental and seasonal allergies (Acute) SARIKA on CPAP (Acute) Essential hypertension (Acute) Benign prostatic hyperplasia (Acute) Past Medical History Medical History Inguinal hernia GERD (gastroesophageal reflux disease) Anemia Hx of adenomatous polyp of colon Impaired fasting glucose Skin lesion of left ear Degenerative joint disease (DJD) of lumbar spine T12 compression fracture Mild intermittent asthma in adult without complication Environmental and seasonal allergies SARIKA on CPAP Essential hypertension Benign prostatic hyperplasia Family History Family History Father CAD (coronary artery disease) HTN (hypertension) CVD (cardiovascular disease) Mother Medical history non-contributory Surgical History Surgical History History of back surgery History of total left knee replacement History of excision of mass (03/18/22) History of lumbar spinal fusion Hx of cholecystectomy History of knee surgery Social History Social History Housing: House Are you a primary home health care respiratory therapist to a significant other at home: No Do you presently have visiting nurse or other home services: No Alcohol intake: current Alcohol intake frequency: 0-2 drinks per day Patient Tobacco Use Status: Never used Tobacco e-Cigarette/Vaping Use: Never Used Second Hand Smoke Exposure: No Use of substances other than those prescribed or required for medical reasons: No Have you been hit, kicked, punched, or otherwise hurt by someone within the past year? If so, by whom?: No Are you DNR?: No Advance Directives: No Advance Directives Information Provided: Yes Advance Directives on File: No Recently lost weight without trying: No Eating poorly because of decreased appetite: No Nutrition Risks: No Nutritional Risk Poor oral hygiene: Yes (chipped and missing teeth) Current occupational status: retired Cognitive needs: No Hearing needs: Yes Vision needs: Yes Meds Allergies Allergy/AdvReac Type Severity Reaction Status Date / Time morphine [Morphine] Allergy Severe VOMITING, Verified 02/26/24 08:15 gi upset, hallucinations, vomiting albuterol Allergy Unknown Verified 02/26/24 09:24 Home Medications ?Medication ?Instructions ?Recorded ?Confirmed ?Last Taken ?Type tamsulosin 0.4 mg capsule 0.8 mg PO BEDTIME 05/20/20 02/26/24 Unknown History dutasteride 0.5 mg capsule 0.5 mg PO BEDTIME 03/04/22 02/26/24 Unknown History amlodipine 5 mg tablet 5 mg PO BEDTIME 02/26/24 02/26/24 Unknown History multivitamin 1 tab PO DAILY 02/26/24 02/26/24 Unknown History omeprazole 20 mg capsule,delayed 20 mg PO DAILY 02/26/24 02/26/24 Unknown History release Exam Height,Weight and Vital Signs: Height 5 ft 9 in Weight 102.058 kg Narrative Narrative: EKG 12/2023 sinus rhythm with sinus arrhythmia and frequent multifocal PVCs Holter monitor on 01/23/2024 for 3 days which showed sinus rhythm, rate 76, frequent PVCs, 12% with bigeminy and rare couplets and triplets, rare supraventricular ectopy. echocardiogram was done 01/23/2024 showing EF 65-70%, mild calcification of the aortic valve and moderate mitral annular calcification. A nuclear stress test was done 01/10/2024 showing normal myocardial perfusion imaging. Assessment and Plan Assessment Anesthesia Assessment: Chart Reviewed Documented by User: Kimberly Lombardo DO 03/05/24 08:40 [facility] Past Medical History Medical History Inguinal hernia GERD (gastroesophageal reflux disease) Anemia Hx of adenomatous polyp of colon Impaired fasting glucose Skin lesion of left ear Degenerative joint disease (DJD) of lumbar spine T12 compression fracture Mild intermittent asthma in adult without complication Environmental and seasonal allergies SARIKA on CPAP Essential hypertension Benign prostatic hyperplasia Family History Family History Father CAD (coronary artery disease) HTN (hypertension) CVD (cardiovascular disease) Mother Medical history non-contributory Family history of problems with anesthesia: No Surgical History Surgical History History of back surgery History of total left knee replacement History of excision of mass (03/18/22) History of lumbar spinal fusion Hx of cholecystectomy History of knee surgery History of Problems with Anesthesia: No Social History Social History Housing: House Are you a primary home health care respiratory therapist to a significant other at home: No Do you presently have visiting nurse or other home services: No Alcohol intake: current Alcohol intake frequency: 0-2 drinks per day Patient Tobacco Use Status: Never used Tobacco e-Cigarette/Vaping Use: Never Used Second Hand Smoke Exposure: No Use of substances other than those prescribed or required for medical reasons: No Have you been hit, kicked, punched, or otherwise hurt by someone within the past year? If so, by whom?: No Are you DNR?: No Advance Directives: No Advance Directives Information Provided: Yes Advance Directives on File: No Recently lost weight without trying: No Eating poorly because of decreased appetite: No Nutrition Risks: No Nutritional Risk Poor oral hygiene: Yes (chipped and missing teeth) Current occupational status: retired Cognitive needs: No Hearing needs: Yes Vision needs: Yes Meds Allergies Allergy/AdvReac Type Severity Reaction Status Date / Time morphine [Morphine] Allergy Severe VOMITING, Verified 02/26/24 08:15 gi upset, hallucinations, vomiting albuterol Allergy Unknown Verified 02/26/24 09:24 Home Medications ?Medication ?Instructions ?Recorded ?Confirmed ?Last Taken ?Type tamsulosin 0.4 mg capsule 0.8 mg PO BEDTIME 05/20/20 02/26/24 Unknown History dutasteride 0.5 mg capsule 0.5 mg PO BEDTIME 03/04/22 02/26/24 Unknown History amlodipine 5 mg tablet 5 mg PO BEDTIME 02/26/24 02/26/24 Unknown History multivitamin 1 tab PO DAILY 02/26/24 02/26/24 Unknown History omeprazole 20 mg capsule,delayed 20 mg PO DAILY 02/26/24 02/26/24 Unknown History release Exam Exam Date and Time: 03/05/24 0835 Height,Weight and Vital Signs: Height 5 ft 9 in Weight 102.058 kg Vital Signs Temperature 97.2 F 03/05/24 08:12 Pulse Rate 62 03/05/24 08:12 Respiratory Rate 18 03/05/24 08:12 Blood Pressure 151/88 H 03/05/24 08:12 Pulse Oximetry 96 03/05/24 08:12 Oxygen Delivery Method Room Air 03/05/24 08:12 Temperature 97.2 F 03/05/24 08:12 Pulse Rate 62 03/05/24 08:12 Respiratory Rate 18 03/05/24 08:12 Blood Pressure 151/88 H 03/05/24 08:12 Pulse Oximetry 96 03/05/24 08:12 Oxygen Delivery Method Room Air 03/05/24 08:12 Airway Mallampati Class: III TM Dist: >3cm Neck ROM: Full Loose/Missing/Broken Teeth: Yes (multiple broken teeth) Heart: S1S2 Lungs: CTAB Assessment and Plan Assessment Anesthesia Assessment: Anesthesia Plan Discussed and Chart Reviewed Final Anesthetic Review Family History of Problems with Anesthesia: No History of Problems with Anesthesia: No NPO: Yes ASA Class: III Final Preanesthetic Review: No Changes in Pt Med Stat, Meds/Allgs Chart Reviewed, Consent Obtained/Reviewed and Anes Risks/Benef Reviewed Patient Risk: Intermediate Procedure Risk: Low Anesthetic Plan Anesthetic Plan: MAC: and Agree w/ Assess. and Plan Disposition: Standard PACU
--- NOTE | 2024-03-05 09:22 | P.OPN-COLO_ITS ---
Colonoscopy Operative Note Operative Note Date of Service: 03/05/24 Narrative: Operative Information Procedure Description: Colonoscopy Indication: hx of colon polyps Anesthesia: MAC COLONOSCOPY Instrument: Olympus variable stiffness pediatric scope 190L Colonoscopy Monitoring: Vital signs and clinical assessment, continuous EKG monitoring, Pulse oximetry, Carbon Dioxide monitoring and blood pressure monitoring were done throughout the procedure. Colon withdrawal time was 12 minutes. Procedure: The patient was placed in the left lateral decubitis position and pre-procedure medications were administered. After a digital rectal examination of the ano-rectum, the video colonoscope was inserted into the rectum and advanced through the colon to the cecum/TI. The colonoscope was slowly withdrawn in a retrograde panoramic fashion and the colon mucosa was carefully examined including a retroflexed view of the rectum. Findings and interventions are described below. Procedure Difficulty: easy Findings: Terminal Ileum-normal Cecum:normal Ascending Colon: 8-9 mm sessile polyp removed with cold snare Transverse Colon -normal Descending Colon:normal Sigmoid Colon: moderate diverticulosis Rectum: Retroflexion with medium sized internal hemorrhoids seen, grade I, 10 mm sessile polyp removed with cold snare Anorectum - normal Intervention: cold snare Colon preparation: [place] Bowel Preparation Scale Right colon; 2 Transverse colon: 2 Left colon; 2 (0 = Unprepared colon segment with mucosa not seen due to solid stool that cannot be cleared. 1 = Portion of mucosa of the colon segment seen, but other areas of the colon segment not well seen due to staining, residual stool and/or opaque liquid. 2 = Minor amount of residual staining, small fragments of stool and/or opaque liquid, but mucosa of colon segment seen well. 3 = Entire mucosa of colon segment seen well with no residual staining, small fragments of stool or opaque liquid) Impression and Post Procedure Diagnosis: diverticulosis colon polyps internal hemorrhoids Plan: High fiber diet leaflet Avoid straining at stool, epsom salts and sitz bath, anusol supps or cream Repeat Colonoscopy in 5-6 years if health allows due to polyps or earlier if clinically indicated, otherwise this would be his last screening colonoscopy Above findings were reviewed with the patient and relevant handouts were provided if indicated.
[2024-03-05 09:29] VITALS: BP 90/53; PULSE 57; RESP 16; TEMP 36.3; O2SAT 94
[2024-03-05 09:40] VITALS: BP 111/72; PULSE 57; RESP 18; TEMP 36.1; O2SAT 96
== END 2024-03-05 10:36 | disposition home or self-care (01) ==
PROVIDERS: PCP Internal Medicine; Visit Provider Internal Medicine Gastroenterology
PROC: 0DJD8ZZ Inspection of Lower Intestinal Tract, Via Natural or Artificial Opening Endoscopic (ICD-10-PCS; CPT 45378; principal; 2024-03-05 09:20)
DX: Z12.11 Encounter for screening for malignant neoplasm of colon (principal); D12.2 Benign neoplasm of ascending colon; K62.1 Rectal polyp; K57.30 Diverticulosis of large intestine without perforation or abscess without bleeding; K64.0 First degree hemorrhoids; Z86.010 Personal history of colon polyps; I10 Essential (primary) hypertension; I49.9 Cardiac arrhythmia, unspecified; R00.0 Tachycardia, unspecified; G47.33 Obstructive sleep apnea (adult) (pediatric); Z99.89 Dependence on other enabling machines and devices; J45.909 Unspecified asthma, uncomplicated; Z79.899 Other long term (current) drug therapy
CPT/HCPCS: 45385; 88305; J2704

== ENCOUNTER → 2024-03-05 07:13 | Outpatient (BNV) | payer MEDICARE, SELFPAY | PROVIDERS: PCP Internal Medicine; Visit Provider Internal Medicine Gastroenterology | DX: Z12.11 Encounter for screening for malignant neoplasm of colon (principal); Z86.010 Personal history of colon polyps; K63.5 Polyp of colon; K57.30 Diverticulosis of large intestine without perforation or abscess without bleeding | CPT/HCPCS: 45385 ==

== ENCOUNTER 2024-03-14 09:05 | Outpatient (AMB) | payer MEDICARE, SELFPAY ==
--- NOTE | 2024-03-14 10:09 | A.OFFPC_ITS ---
Vital Signs 03/14/24 10:10 Height 5 ft 9 in Weight 232 lb BMI 34.3 BP 136/70 Blood Pressure Location Lt brachial Position Sitting Pulse 75 Pulse Source Pulse Oximeter Pulse Oximetry (%) 96 Oxygen Delivery Method Room Air Intake Visit Reasons: hernia Intake Note: Pt is here today c/o of RLQ ? hernia Allergies morphine [Morphine] Allergy (Severe, Verified 03/14/24 10:32) VOMITING, gi upset, hallucinations, vomiting albuterol Allergy (Verified 03/14/24 10:32) Unknown Medication List - Last Reconciled 03/14/24 by Melina Hou MD amlodipine 5 mg PO BEDTIME atenolol 50 mg PO DAILY dutasteride 0.5 mg PO BEDTIME montelukast 10 mg PO BEDTIME multivitamin 1 tab PO DAILY omeprazole 20 mg PO DAILY tamsulosin 0.8 mg PO BEDTIME Tobacco use date assessed: 03/14/24 Fall risk assessment: No Falls in past year Last assessed Fall Risk: 03/14/24 Dental Screening Dental Screen Date: 03/14/24 Did you have a dental visit in the last 12 months?: No Did you have a dental problem in the last 6 months where you did not have access to dental care?: No Was dental information given to patient?: Patient declined HPI hernia HPI Details 73-year-old male here today complaining of a bulging mass in right groin area accompanied by same some burning sensation, worse when he walks or lifts anything. This has been present now for the last several months. Patient states that he is able to push it back in again. No other complaints at present time [facility] Medical History Inguinal hernia GERD (gastroesophageal reflux disease) Anemia Hx of adenomatous polyp of colon Impaired fasting glucose Skin lesion of left ear Degenerative joint disease (DJD) of lumbar spine T12 compression fracture Mild intermittent asthma in adult without complication Environmental and seasonal allergies SARIKA on CPAP Essential hypertension Benign prostatic hyperplasia Surgical History History of back surgery History of total left knee replacement History of excision of mass (03/18/22) History of lumbar spinal fusion Hx of cholecystectomy History of knee surgery Family History Father CAD (coronary artery disease) HTN (hypertension) CVD (cardiovascular disease) Mother Medical history non-contributory Social History Housing: House Are you a primary field care advocate to a significant other at home: No Do you presently have visiting nurse or other home services: No Alcohol intake: current Alcohol intake frequency: 0-2 drinks per day Patient Tobacco Use Status: Never used Tobacco e-Cigarette/Vaping Use: Never Used Second Hand Smoke Exposure: No Current occupational status: retired Cognitive needs: No Hearing needs: Yes Vision needs: Yes Questionnaire PHQ-9 Over the last 2 weeks, how often have you been bothered by any of the following problems? 1. Little interest or pleasure in doing things: not at all 2. Feeling down, depressed, or hopeless: not at all 3. Trouble falling or staying asleep, or sleeping too much: not at all 4. Feeling tired or having little energy: not at all 5. Poor appetite or overeating: not at all 6. Feeling bad about yourself - or that you are a failure or have let yourself or your family down: not at all 7. Trouble concentrating on things, such as reading the newspaper or watching television: not at all 8. Moving or speaking so slowly that other people could have noticed. Or the opposite - being so fidgety or restless that you have been moving around a lot more than usual: not at all 9. Thoughts that you would be better off or of hurting yourself in some way: not at all Total score: 0 Depression Screening Interpretation: Negative Depression Screening Done: Yes 69348 - PHQ-9 Billing: Yes Source: Developed by Drs. Scott Alexander, Tawny Aguero, Gideon Gandara and colleagues, with an educational jac from [employer]. Thrive Questionnaire Date Thrive assessed: 03/14/24 I am a: Patient What is your living situation today?: I have a steady place to live Within the past 12 months, did the food you bought not last and you didn't have the money to get more?: Never true Within the past 12 months, did you worry whether your food would run out before you got money to buy more?: Never true Do you have trouble paying for medicines?: No Do you have trouble getting transportation to medical appointments?: No Do you have trouble paying your heating and electricity bill?: No Do you have trouble taking care of your child, family member or friend?: No Do you have trouble with day-to-day activities such as bathing, preparing meals, shopping, managing finances, etc.?: No Are you interested in more education?: No Please select the resources that you would like help with: None Currently or been in a relationship where the following occur: No concerns reported THRIVE Score: 0 AUDIT C Alcohol Use Questionnaire (AUDIT-C) 1. How often do you have a drink containing alcohol?: Monthly or less 2. How many drinks containing alcohol do you have on a typical day when you are drinking?: 1 or 2 3. How often do you have six or more drinks on one occasion?: Never Total Score: 1 JEAN-7 AMB Questionnaire JEAN-7 Date JEAN - 7 assessed: 03/14/24 Feeling nervous, anxious, or on edge: 0 = Not at all Not being able to stop or control worryin = Not at all Worrying too much about different things: 0 = Not at all Trouble relaxin = Not at all Being so restless that it is hard to sit still: 0 = Not at all Becoming easily annoyed or irritable: 0 = Not at all Feeling afraid as if something awful might happen: 0 = Not at all Total JEAN-7 score (0-4 normal; 5-9 mild; 10-14 moderate; 15-21 severe): 0 Source: Developed by Drs. Scott Alexander, Tawny Aguero, Gideon Gandara and colleagues, with an educational jac from [employer]. JEAN-7 Assessment Billing JEAN-7 Assessment Tool: JEAN-7 Assessment 02494 Review of Systems Const All systems reviewed & are unremarkable except as noted in HPI and below Physical exam (Primary Care) Vital Signs: Last Vital Signs Pulse 75 03/14/24 10:10 BP 136/70 03/14/24 10:10 Pulse Ox 96 03/14/24 10:10 Oxygen Delivery Method Room Air 03/14/24 10:10 BMI result Body Mass Index 34.3 Tobacco/Smoking Status: Tobacco use Status Tobacco use date assessed 03/14/24 03/14/24 10:13 Patient Tobacco Use Status Never used Tobacco 03/14/24 10:13 e-Cigarette/Vaping Use Never Used 03/14/24 10:13 PHQ-9: PHQ-9 Score PHQ-9: Total score 0 03/14/24 10:13 Depression Screening Interpretation: Negative Thrive Assessment: Date of Thrive Assessment Date Thrive assessed 03/14/24 03/14/24 10:13 Currently or been in a relationship where the following occur: No concerns reported Const General: comfortable and no acute distress Nutritional Appearance: obese Orientation/consciousness: patient oriented x3 GI Inspection: Yes obesity Palpation (GI): Soft to palpation, nontender and Hernia present indirect inguinal on the right Auscultation: normal bowel sounds Neuro General: patient oriented x3 Coding Level of Care Code Est Pt Level 3 (47969) Diagnoses Mass of right inguinal region R19.09 Additional Codes JEAN-7 Assessment Billing - JEAN-7 Assessment Tool: JEAN-7 Assessment 02164 ([id number]) Assessment & Plan Assessment & Plan (1) Mass of right inguinal region: Code(s): R19.09 - Other intra-abdominal and pelvic swelling, mass and lump Plan: Referred to general surgery for further evaluation management of right inguinal mass Orders: Referrals General Surgery Referral R19.09 - Other intra-abdominal and pelvic swelling, mass and lump
[2024-03-14 10:10] VITALS: BP 136/70; PULSE 75; O2SAT 96; BMI 34.3
== END 2024-03-14 11:40 | disposition home or self-care (01) ==
PROVIDERS: PCP Internal Medicine; Visit Provider Internal Medicine
DX: R19.09 Other intra-abdominal and pelvic swelling, mass and lump (principal)

== ENCOUNTER → 2024-03-14 09:05 | Outpatient (BNVA) | payer MEDICARE, SELFPAY | PROVIDERS: PCP Internal Medicine; Visit Provider Internal Medicine | DX: R19.09 Other intra-abdominal and pelvic swelling, mass and lump (principal) | CPT/HCPCS: 96127; 99212 ==

== ENCOUNTER 2024-04-16 10:18 | Outpatient (AMB) | payer MEDICARE, SELFPAY ==
--- NOTE | 2024-04-16 10:20 | MHC.OFFVIS ---
Vital Signs 04/16/24 10:28 Height 5 ft 9 in Weight 236 lb 2 oz BMI 34.9 BP 153/67 H Blood Pressure Location Lt brachial Position Sitting Pulse 67 Intake Visit Reasons: Rt groin mass Intake Note: Patient is seen in office for evaluation of a right groin mass. 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 He reports following reoperation of his left knee, he strained his right leg and subsequently felt a lump in the right groin. He is now having some discomfort associated with this lump but is able to reduce the lump with light pressure. He denies nausea, vomiting, fever or chills. He previously underwent a repair of this right inguinal hernia many years ago by Dr. Holly. He presents today to discuss repair of this right inguinal hernia. [facility] Medical History Inguinal hernia GERD (gastroesophageal reflux disease) Anemia Hx of adenomatous polyp of colon Impaired fasting glucose Skin lesion of left ear Degenerative joint disease (DJD) of lumbar spine T12 compression fracture Mild intermittent asthma in adult without complication Environmental and seasonal allergies SARIKA on CPAP Essential hypertension Benign prostatic hyperplasia Surgical History History of back surgery History of total left knee replacement History of excision of mass (03/18/22) History of lumbar spinal fusion Hx of cholecystectomy History of knee surgery Family History Father CAD (coronary artery disease) HTN (hypertension) CVD (cardiovascular disease) Mother Medical history non-contributory Social History Housing: House Are you a primary director of medicare to a significant other at home: No Do you presently have visiting nurse or other home services: No Alcohol intake: current Alcohol intake frequency: 0-2 drinks per day Patient Tobacco Use Status: Never used Tobacco e-Cigarette/Vaping Use: Never Used Second Hand Smoke Exposure: No Current occupational status: retired Cognitive needs: No Hearing needs: Yes Vision needs: Yes Review of Systems Const All systems reviewed & are unremarkable except as noted in HPI and below Physical Exam Const General: comfortable Nutritional Appearance: well nourished Orientation/consciousness: patient oriented x3 HEENT Head: Yes normocephalic and Yes atraumatic Resp Effort & Inspection: normal respiratory effort, no audible wheezes, no cough and no respiratory distress GI Inspection: Yes normal to inspection Palpation (GI): Soft to palpation, nontender, no guarding, not rigid and Hernia present direct inguinal on the right Skin General skin exam: no rashes or lesions noted Neuro General: patient oriented x3 Extrem General: Yes no clubbing, cyanosis or edema Assessment & Plan Assessment & Plan (1) Right inguinal hernia: Code(s): K40.90 - Unilateral inguinal hernia, without obstruction or gangrene, not specified as recurrent Category: Medical Plan 73-year-old male patient presenting with a recurrent right inguinal hernia which on examination is determined to be reducible. I recommended repair of this reducible right inguinal hernia as a short-stay surgery and after discussion of the procedure, risks, and alternatives, consents to the repair of recurrent, reducible, right inguinal hernia with mesh. Coding Level of Care Code New Pt Level 4 (35398) Diagnoses Right inguinal hernia K40.90
[2024-04-16 10:28] VITALS: BP 153/67; PULSE 67; BMI 34.9
== END 2024-04-16 10:42 | disposition home or self-care (01) ==
LOC: HO.HGS 10:19
PROVIDERS: PCP Internal Medicine; Referring Provider Internal Medicine; Visit Provider Surgery
DX: K40.90 Unilateral inguinal hernia, without obstruction or gangrene, not specified as recurrent (principal)
CPT/HCPCS: 99214

== ENCOUNTER → 2024-04-16 10:18 | Outpatient (BNVA) | payer MEDICARE, SELFPAY | PROVIDERS: PCP Internal Medicine; Referring Provider Internal Medicine; Visit Provider Surgery | DX: K40.90 Unilateral inguinal hernia, without obstruction or gangrene, not specified as recurrent (principal) | CPT/HCPCS: 99212 ==

== ENCOUNTER 2024-05-02 10:21 | Outpatient (REF) | payer MEDICARE, SELFPAY ==
[2024-05-02 11:56] LABS: Prostate Specific Antigen 3.98 ng/mL (<0.05-4.0)
== END 2024-05-02 10:22 | disposition home or self-care (01) ==
LOC: HO.LAB 10:21
PROVIDERS: PCP Internal Medicine; Visit Provider Urology
DX: R97.20 Elevated prostate specific antigen [PSA] (principal); N40.1 Benign prostatic hyperplasia with lower urinary tract symptoms; Z12.5 Encounter for screening for malignant neoplasm of prostate
CPT/HCPCS: 36415; 84153

== ENCOUNTER 2024-05-06 07:18 | Day surgery (SDC) | payer MEDICARE, SELFPAY ==
[2024-05-02 08:51] VITALS: BMI 34.8
--- NOTE | 2024-05-03 09:42 | HO.ANESPROP2 ---
Documented by User: Edel Faulkner NP 05/03/24 09:45 HPI - Anesthesia Eval Consult details Narrative: 73yo M for Right Repair Hernia Inguinal Recurrent/Reducible with mesh s/p colo 02/2024 with MAC Caridac optimized prior (Freq PVCs, but EF and stress nml) PMFSH Active Problems Active Problems: All Active Problems Right inguinal hernia (Acute) Preop cardiovascular exam (Acute) PVCs (premature ventricular contractions) (Acute) Tachycardia (Acute) Arrhythmia (Acute) Anemia (Acute) Hx of adenomatous polyp of colon (Acute) Degenerative joint disease (DJD) of lumbar spine (Acute) T12 compression fracture (Acute) Mild intermittent asthma in adult without complication (Acute) Environmental and seasonal allergies (Acute) SARIKA on CPAP (Acute) Essential hypertension (Acute) Benign prostatic hyperplasia (Acute) Past Medical History Medical History Inguinal hernia GERD (gastroesophageal reflux disease) Anemia Hx of adenomatous polyp of colon Impaired fasting glucose Skin lesion of left ear Degenerative joint disease (DJD) of lumbar spine T12 compression fracture Mild intermittent asthma in adult without complication Environmental and seasonal allergies SARIKA on CPAP Essential hypertension Benign prostatic hyperplasia Family History Family History Father CAD (coronary artery disease) HTN (hypertension) CVD (cardiovascular disease) Mother Medical history non-contributory Family history of problems with anesthesia: No Surgical History Surgical History History of back surgery History of total left knee replacement History of excision of mass (03/18/22) History of lumbar spinal fusion Hx of cholecystectomy History of knee surgery History of Problems with Anesthesia: No Social History Social History Housing: House Are you a primary health and social care teacher to a significant other at home: No Do you presently have visiting nurse or other home services: No Alcohol intake: current Alcohol intake frequency: 0-2 drinks per day Patient Tobacco Use Status: Never used Tobacco e-Cigarette/Vaping Use: Never Used Second Hand Smoke Exposure: No Use of substances other than those prescribed or required for medical reasons: No Are you DNR?: No Advance Directives: No Advance Directives Information Provided: Yes Current occupational status: retired Cognitive needs: No Hearing needs: Yes Vision needs: Yes Meds Allergies Allergy/AdvReac Type Severity Reaction Status Date / Time morphine [Morphine] Allergy Severe VOMITING, Verified 05/06/24 07:32 gi upset, hallucinations, vomiting albuterol Allergy Unknown Verified 05/06/24 07:32 Home Medications ?Medication ?Instructions ?Recorded ?Confirmed ?Last Taken ?Type tamsulosin 0.4 mg capsule 0.8 mg PO BEDTIME 05/20/20 04/16/24 Unknown History dutasteride 0.5 mg capsule 0.5 mg PO BEDTIME 03/04/22 04/16/24 Unknown History amlodipine 5 mg tablet 5 mg PO BEDTIME 02/26/24 04/16/24 Unknown History multivitamin 1 tab PO DAILY 02/26/24 04/16/24 Unknown History omeprazole 20 mg capsule,delayed 20 mg PO DAILY 02/26/24 04/16/24 Unknown History release Exam Height,Weight and Vital Signs: Height 5 ft 9 in Weight 107.048 kg Pertinent Lab Results Pertinent Lab Results: Laboratory Tests 10/26/23 06:27 WBC 4.9 Hgb 13.5 L Hct 40.3 L Plt Count 160 Sodium 141 Potassium 3.8 Chloride 107 Carbon Dioxide 25 BUN 13 Creatinine 0.65 Narrative Narrative: EKG 12/2023 sinus rhythm with sinus arrhythmia and frequent multifocal PVCs Holter monitor on 01/23/2024 for 3 days which showed sinus rhythm, rate 76, frequent PVCs, 12% with bigeminy and rare couplets and triplets, rare supraventricular ectopy. echocardiogram was done 01/23/2024 showing EF 65-70%, mild calcification of the aortic valve and moderate mitral annular calcification. A nuclear stress test was done 01/10/2024 showing normal myocardial perfusion imaging. Assessment and Plan Assessment Anesthesia Assessment: Chart Reviewed Final Anesthetic Review Family History of Problems with Anesthesia: No History of Problems with Anesthesia: No Documented by User: Constanza Myers MD 05/06/24 09:52 [facility] Past Medical History Medical History Inguinal hernia GERD (gastroesophageal reflux disease) Anemia Hx of adenomatous polyp of colon Impaired fasting glucose Skin lesion of left ear Degenerative joint disease (DJD) of lumbar spine T12 compression fracture Mild intermittent asthma in adult without complication Environmental and seasonal allergies SARIKA on CPAP Essential hypertension Benign prostatic hyperplasia Family History Family History Father CAD (coronary artery disease) HTN (hypertension) CVD (cardiovascular disease) Mother Medical history non-contributory Surgical History Surgical History History of back surgery History of total left knee replacement History of excision of mass (03/18/22) History of lumbar spinal fusion Hx of cholecystectomy History of knee surgery Social History Social History Housing: House Are you a primary health and social care teacher to a significant other at home: No Do you presently have visiting nurse or other home services: No Alcohol intake: current Alcohol intake frequency: 0-2 drinks per day Patient Tobacco Use Status: Never used Tobacco e-Cigarette/Vaping Use: Never Used Second Hand Smoke Exposure: No Use of substances other than those prescribed or required for medical reasons: No Are you DNR?: No Advance Directives: No Advance Directives Information Provided: Yes Current occupational status: retired Cognitive needs: No Hearing needs: Yes Vision needs: Yes Meds Allergies Allergy/AdvReac Type Severity Reaction Status Date / Time morphine [Morphine] Allergy Severe VOMITING, Verified 05/06/24 07:32 gi upset, hallucinations, vomiting albuterol Allergy Unknown Verified 05/06/24 07:32 Home Medications ?Medication ?Instructions ?Recorded ?Confirmed ?Last Taken ?Type tamsulosin 0.4 mg capsule 0.8 mg PO BEDTIME 05/20/20 04/16/24 Unknown History dutasteride 0.5 mg capsule 0.5 mg PO BEDTIME 03/04/22 04/16/24 Unknown History amlodipine 5 mg tablet 5 mg PO BEDTIME 02/26/24 04/16/24 Unknown History multivitamin 1 tab PO DAILY 02/26/24 04/16/24 Unknown History omeprazole 20 mg capsule,delayed 20 mg PO DAILY 02/26/24 04/16/24 Unknown History release Exam Airway Mallampati Class: III TM Dist: >3cm Neck ROM: Full Loose/Missing/Broken Teeth: Yes Heart: RRR Lungs: CTA Assessment and Plan Assessment Anesthesia Assessment: Anesthesia Plan Discussed Final Anesthetic Review NPO: Yes ASA Class: III Final Preanesthetic Review: Meds/Allgs Chart Reviewed, Consent Obtained/Reviewed and Anes Risks/Benef Reviewed Patient Risk: Intermediate Procedure Risk: Low Anesthetic Plan Anesthetic Plan: GA Disposition: Standard PACU
[2024-05-06 07:33] VITALS: BMI 35.4
[2024-05-06 07:39] VITALS: BP 131/78; PULSE 59; RESP 16; TEMP 36.5; O2SAT 97
[2024-05-06] MEDS: Lactated Ringers 1,000 ML 100 ML IVCONT (08:08)
--- NOTE | 2024-05-06 08:19 | MHC.SHP ---
Pre-Procedural Eval Section A - 24 Hr Update-Section A only Date of Service: 05/06/24 The patient is an INPATIENT: No Changes since office visit: Yes Patient answered all questions; No Cold of Flu in the past 2 weeks, No New Medical Problems and No Changes in Medication The patient has been examined within 24 hours of the surgical procedure. The History & Physical has been completed within 30 days and I have reviewed it.: Yes Section B - Complete if H&P > 30 days Chief Complaint: Unilateral inguinal hernia, without obstruction Allergies: Allergies Allergy/AdvReac Type Severity Reaction Status Date / Time morphine [Morphine] Allergy Severe VOMITING, Verified 05/06/24 07:32 gi upset, hallucinations, vomiting albuterol Allergy Unknown Verified 05/06/24 07:32 Plan Diagnosis/Plan: Unchanged I have reviewed the history and physical and performed a pertinent physical examination on my patient. No changes have occurred unless specified. Time Spent With Patient Time: Total time managing care of this patient today ____ minutes.
--- NOTE | 2024-05-06 10:28 | W.PM.OPN ---
Operative Note Operative Note Date of Service: 05/06/24 Narrative: Preoperative diagnosis: Reducible right inguinal hernia Postoperative diagnosis: Same, both direct and indirect Procedure: Repair of right inguinal hernia with mesh Surgeon: Rishi Gramajo MD Theater Education Teacher: Mar Springer PA-C Anesthesia: General LMA Indications for procedure: 73-year-old male patient with a painful right inguinal hernia. On examination he is noted to have a reducible right inguinal hernia which is quite large in the standing position. Operative findings: Combination of both direct and indirect right inguinal hernia (pantaloon hernia). Specimen: Hernia sac, lipoma of the cord right side Estimated blood loss: 2 mL Complications: None Procedure details: Patient was brought to the OR placed in a supine position. After administering general anesthesia the patient's abdomen was prepped with ChloraPrep and draped in a sterile fashion. A surgical time-out was called the consent confirmed. Patient received preoperative antibiotics and Venodyne boots were in place. Local anesthesia was then infiltrated over the right inguinal ligament with 0.5% Sensorcaine. Incision was then made with a scalpel over the right inguinal ligament and carried out through subcutaneous tissue, past Haley's fashion up to the external oblique aponeurosis. Additional local was infiltrated below the aponeurosis. This was then incised with a scalpel and widened with the Metzenbaum scissors. The spermatic cord was then dissected from the surrounding inguinal canal. This was then retracted using a Tino drain. The floor of the inguinal canal was noted to have a direct hernia. Spermatic cord was noted to be quite thickened due to a indirect hernia. Fibers of the cremaster muscle were and the indirect sac dissected down to the internal ring. The sac was opened and its contents reduced. No incarcerated or sliding component could be identified. The sac was then ligated at its base using a 0 Polysorb suture and excised. This was sent as specimen. Large lipoma adjacent to the sac was also excised down to the internal ring after ligating with a 0 Polysorb suture. The floor of the inguinal canal was then addressed. Fibers of the internal oblique and transversalis aponeurosis were then incised with the electrocautery. The preperitoneal space was then entered and widened with an open Ray-Refugio sponge. A large extended PHS mesh was then obtained. The circular underlay was then deployed within the preperitoneal space. The overlay was then secured to the shelving edge, conjoined tendon and pubic tubercle using 0 Polysorb sutures. A slit was made in the mesh in the mesh wrapped around the spermatic cord at the internal ring. This was loose enough to allow the tip of the index finger to pass. The remainder of the mesh was passed below the external oblique aponeurosis laterally. Wounds were then irrigated with saline solution and suctioned dry. External oblique aponeurosis was then closed using a running 2-0 Polysorb suture. Approximately 6 mL of Zenrelef was then instilled below the external oblique aponeurosis. Haley's fascia and dermis were then closed using interrupted 3-0 Polysorb sutures. Skin was closed using a running subcuticular 4-0 Polysorb suture. Steri-Strips, 2 x 2 gauze and Tegaderm were then applied. The patient tolerated the procedure well. Sponge, instrument, and needle counts reported as correct. The patient was transferred to PACU in stable condition.
[2024-05-06 10:33] VITALS: BP 123/75; PULSE 57; RESP 18; TEMP 35.9; O2SAT 95
[2024-05-06 10:38] VITALS: BP 134/73; PULSE 64; RESP 18; O2SAT 94
[2024-05-06 10:43] VITALS: BP 136/72; PULSE 69; RESP 18; O2SAT 94
[2024-05-06 11:03] VITALS: BP 135/62; PULSE 74; RESP 18; TEMP 36.3; O2SAT 94
[2024-05-06] MEDS: oxyCODONE HCl Immed Release 5 MG TABLET PO (11:05)
== END 2024-05-06 11:57 | disposition home or self-care (01) ==
PROVIDERS: PCP Internal Medicine; Visit Provider Surgery
PROC: (CPT 49505; principal; 2024-05-06 09:30)
DX: K40.90 Unilateral inguinal hernia, without obstruction or gangrene, not specified as recurrent (principal); D17.6 Benign lipomatous neoplasm of spermatic cord; K21.9 Gastro-esophageal reflux disease without esophagitis; I10 Essential (primary) hypertension; R73.01 Impaired fasting glucose; D64.9 Anemia, unspecified; J45.20 Mild intermittent asthma, uncomplicated; G47.33 Obstructive sleep apnea (adult) (pediatric); N40.0 Benign prostatic hyperplasia without lower urinary tract symptoms; Z79.899 Other long term (current) drug therapy; Z99.89 Dependence on other enabling machines and devices; Z88.5 Allergy status to narcotic agent; Z88.8 Allergy status to other drugs, medicaments and biological substances; Z90.49 Acquired absence of other specified parts of digestive tract; Z98.890 Other specified postprocedural states
CPT/HCPCS: 49505; 88302; 88304; C1781; C9088; J0131; J0690; J1100; J1885; J2003; J2250; J2405; J2704; J2795; J3010

== ENCOUNTER → 2024-05-06 07:18 | Outpatient (BNV) | payer MEDICARE, SELFPAY | PROVIDERS: PCP Internal Medicine; Visit Provider Surgery | DX: K40.90 Unilateral inguinal hernia, without obstruction or gangrene, not specified as recurrent (principal) | CPT/HCPCS: 49505 ==

== ENCOUNTER 2024-05-21 09:07 | Outpatient (AMB) | payer MEDICARE, SELFPAY ==
--- NOTE | 2024-05-21 09:12 | MHC.OFFVIS ---
Vital Signs 05/21/24 09:20 Height 5 ft 9 in Weight 238 lb BMI 35.1 BP 138/75 Blood Pressure Location Lt brachial Position Sitting Pulse 65 Intake Visit Reasons: s/p repair Rt inguinal hernia w/mesh Intake Note: Patient is seen in office for post op assessment post right inguinal hernia repair. Pt c/o:denies any concerns regarding regarding the hernia repair, would like the Dr to evaluate a mole on the right side of the back, onset about year, denies redness or discharge, admits to itchy latricia: 05/06/24 Deployment Technician Required: No Accompanied by: Self / Same As Patient Allergies morphine [Morphine] Allergy (Severe, Verified 05/21/24 09:20) VOMITING, gi upset, hallucinations, vomiting albuterol Allergy (Verified 05/21/24 09:) Unknown HPI Comments Details: 73-year-old male patient status post repair of a right inguinal hernia with mesh on 05/06/2024. He was found to have a pantaloon hernia repaired with a large PHS mesh. He tolerated the procedure well and reports no ongoing symptoms at this time. [facility] Medical History Inguinal hernia GERD (gastroesophageal reflux disease) Anemia Hx of adenomatous polyp of colon Impaired fasting glucose Skin lesion of left ear Degenerative joint disease (DJD) of lumbar spine T12 compression fracture Mild intermittent asthma in adult without complication Environmental and seasonal allergies SARIKA on CPAP Essential hypertension Benign prostatic hyperplasia Surgical History History of right inguinal hernia repair (05/06/24) History of back surgery History of total left knee replacement History of excision of mass (03/18/22) History of lumbar spinal fusion Hx of cholecystectomy History of knee surgery Family History Father CAD (coronary artery disease) HTN (hypertension) CVD (cardiovascular disease) Mother Medical history non-contributory Social History Housing: House Are you a primary health care marketing manager to a significant other at home: No Do you presently have visiting nurse or other home services: No Alcohol intake: current Alcohol intake frequency: 0-2 drinks per day Patient Tobacco Use Status: Never used Tobacco e-Cigarette/Vaping Use: Never Used Second Hand Smoke Exposure: No Current occupational status: retired Cognitive needs: No Hearing needs: Yes Vision needs: Yes Physical Exam Vital Signs: Last Vital Signs Pulse 65 05/21/24 09:20 BP 138/75 05/21/24 09:20 BMI result Body Mass Index 35.1 Const General: healthy appearing Nutritional Appearance: well nourished Orientation/consciousness: patient oriented x3 Resp Effort & Inspection: normal respiratory effort GI Other: Soft, nondistended, nontender, well-healed incision in the right groin. No hernia noted with Valsalva maneuvers. Neuro General: patient oriented x3 Extrem Other: No edema Assessment & Plan Assessment & Plan (1) Right inguinal hernia: Code(s): K40.90 - Unilateral inguinal hernia, without obstruction or gangrene, not specified as recurrent Category: Medical Plan 73-year-old male patient status post repair of a right inguinal hernia with mesh. He tolerated the procedure well the wounds are healing nicely without evidence of infection or hernia recurrence. He should continue to avoid lifting greater than 10 lb return approximately 3-4 weeks for follow-up examination. He is welcome to call sooner for any new concerns. Coding Level of Care Code Global (18173) Diagnoses Right inguinal hernia K40.90
[2024-05-21 09:20] VITALS: BP 138/75; PULSE 65; BMI 35.1
--- OUTSIDE RECORDS SUMMARY | 2024-05-22 19:18 | XMS_ITS | Clinical Summary ---
Author Organization Unknown Care Team Providers Care Wheel Polisher Name Role Phone RADHA DUNLAP, АННА MISHRA Unavailable Unavaila hyacinth ARANGO PT, BRANNON Unavailable Unavailable KATELYNN TUMBLER DYEING MACHINE OPERATOR, WILLIAM Unavailable Unavailable Payers Payer Name Policy Type Policy Number Effective Date Expira tion Date MEDICARE.NGS.PDGM [id number] Problems Condition Name Condition Details Condition Category Status Onset Date Resolution Date Last Treatment Date Treating Clinician Comments [facility] COMPL OF INTERNAL LEFT KNEE PROSTHESIS, SUBS ENCNTR Active 07-10 00:00: 00 ESSENTIAL (PRIMARY) HYPERTENSION Active 07-10 00:00: 00 UNSPECIFIED ASTHMA, UNCOMPLICATE D Active 07-10 00:00: 00 BENIGN PROSTATIC HYPERPLASIA WITHOUT LOWER URINRY TRACT SYMP Active 07-10 00:00: 00 GASTRO-ESOPH AGEAL REFLUX DISEASE WITHOUT ESOPHAGITIS Active 07-10 00:00: 00 SHELTER (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 OF ANTIBIOTICS Active 07-10 00:00: 00 HISTORY OF FALLING Active 07-10 00:00: 00 SHELTER (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 OF OPIATE ANALGESIC Active 07-10 00:00: 00 TOP CLEANER (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 OF ANTICOAGULAN TS Active 07-10 00:00: 00 ACQUIRED ABSENCE OF OTHER SPECIFIED PARTS OF DIGESTIVE TRACT Active 07-10 00:00: 00 Allergies, Adverse Reactions, Alerts Allergy Name Allergy Type Status Severity Reaction(s) Onset Date Inactive Date Treating Clinician Comments ALBUTEROL Propensity to adverse reactions Active 07-05 16:14: 22 MORPHINE Propensity to adverse reactions Active 07-05 16:14: 31 PERCOCET Propensity to adverse reactions Active 07-05 16:14: 40 Medications Ordered Medication Name Filled Medication Name Start Date Stop Date Current Medication? Ordering Clinician Indication Dosage Frequency Signature (SIG) Comments Components amlodipine 5 mg tablet 2022-06 00:00: 00 Yes [id number] HEART HEALTH 1 tablet DAILY 1 tablet DAILY (route: oral) Med Classific ation: Cardiovas cular Therapy Agents atenolol 25 mg tablet 2022-06 00:00: 00 Yes [id number] BP 1 tablet DAILY 1 tablet DAILY (route: oral) Med Classific ation: Cardiovas cular Therapy Agents dutasteride 0.5 mg capsule 2022-06 00:00: 00 Yes [id number] PROSTATE 1 capsule DAILY 1 capsule DAILY (route: oral) Med Classific ation: Genitouri nary Therapy montelukast 10 mg tablet 2022-06 00:00: 00 Yes [id number] ASTHMA 1 tablet DAILY 1 tablet DAILY (route: oral) Med Classific ation: Respirato ry Therapy Agents omeprazole 20 mg capsule,del ayed release 2022-06 00:00: 00 Yes [id number] ACID REFLUX 1 capsule DAILY 1 capsule DAILY (route: oral) Med Classific ation: Gastroint estinal Therapy Agents oxycodone 5 mg capsule 2022-06 00:00: 00 Yes [id number] PAIN 1 capsule EVERY 6 HOURS 1 capsule EVERY 6 HOURS (route: oral) Med Classific ation: Analgesic , Anti-infl ammatory or Antipyret ic tamsulosin 0.4 mg capsule 2022-06 00:00: 00 Yes [id number] PROSTATE 1 capsule DAILY 1 capsule DAILY (route: oral) Med Classific ation: Genitouri nary Therapy Tylenol Extra Strength 500 mg tablet 2022-06 00:00: 00 Yes [id number] PAIN 1-2 tablet EVERY 6 HOURS 1-2 tablet EVERY 6 HOURS (route: oral) Med Classific ation: Analgesic , Anti-infl ammatory or Antipyret ic Xarelto 10 mg tablet 2022-06 00:00: 00 07-10 00:00 :00 No [id number] HEART HEALTH 1 tablet DAILY 1 tablet DAILY (route: oral) Med Classific ation: Hematolog ical Agents Aspirin Childrens 81 mg chewable tablet 07-10 00:00: 00 Yes [id number] BLOOD THINER 1 tablet DAILY 1 tablet DAILY (route: oral) Med Classific ation: Hematolog ical Agents naproxen 500 mg tablet 07-10 00:00: 00 Yes [id number] INFLAMATION 1 tablet 2 TIMES DAILY 1 tablet 2 TIMES DAILY (route: oral) Med Classific ation: Analgesic , Anti-infl ammatory or Antipyret ic Vital Signs Vital Name Observation Time Observation Value Commen ts Temperature 2023-08-07 09:22:00.000 97.3 [degF] Temperature 2023-07-27 08:19:00.000 98.2 [degF] Temperature 2023-07-24 08:41:00.000 97.5 [degF] Temperature 2023-07-20 08:47:00.000 98.2 [degF] Temperature 2023-07-18 15:35:00.000 97.8 [degF] Temperature 2023-07-13 08:33:00.000 97.9 [degF] Temperature 2023-07-11 07:39:00.000 98 [degF] Temperature 2023-07-10 07:43:00.000 98.2 [degF] BMI (%) 2023-07-10 07:36:03.000 30 kg/m2 Height 2023-07-10 07:35:46.000 69 [in_us] Pulse 2023-08-07 09:22:00.000 75 /min Pulse 2023-07-27 08:19:00.000 72 /min Pulse 2023-07-24 08:41:00.000 90 /min Pulse 2023-07-20 08:47:00.000 77 /min Pulse 2023-07-18 15:35:00.000 71 /min Pulse 2023-07-13 08:33:00.000 75 /min Pulse 2023-07-11 07:39:00.000 76 /min Pulse 2023-07-10 07:43:00.000 74 /min O2 Saturation (%) 2023-08-07 09:23:00.000 95 % O2 Saturation (%) 2023-07-20 08:50:00.000 95 % O2 Saturation (%) 2023-07-13 08:34:00.000 96 % O2 Saturation (%) 2023-07-11 07:41:00.000 97 % Respirations 2023-08-07 09:22:00.000 18 /min Respirations 2023-07-27 08:19:00.000 18 /min Respirations 2023-07-24 08:41:00.000 18 /min Respirations 2023-07-20 08:47:00.000 18 /min Respirations 2023-07-18 15:35:00.000 18 /min Respirations 2023-07-13 08:33:00.000 18 /min Respirations 2023-07-11 07:39:00.000 18 /min Respirations 2023-07-10 07:43:00.000 18 /min Weight (lbs) 2023-07-10 07:36:03.000 204 [lb_av] Systolic Blood Pressure 2023-08-07 09:22:00.000 116 mm [Hg] Systolic Blood Pressure 2023-07-27 08:19:00.000 136 mm [Hg] Systolic Blood Pressure 2023-07-24 08:41:00.000 136 mm [Hg] Systolic Blood Pressure 2023-07-20 08:47:00.000 140 mm [Hg] Systolic Blood Pressure 2023-07-18 15:35:00.000 130 mm [Hg] Systolic Blood Pressure 2023-07-13 08:33:00.000 130 mm [Hg] Systolic Blood Pressure 2023-07-11 07:39:00.000 124 mm [Hg] Systolic Blood Pressure 2023-07-10 07:43:00.000 132 mm [Hg] Diastolic Blood Pressure 2023-08-07 09:22:00.000 72 mm [Hg] Diastolic Blood Pressure 2023-07-27 08:19:00.000 78 mm [Hg] Diastolic Blood Pressure 2023-07-24 08:41:00.000 78 mm [Hg] Diastolic Blood Pressure 2023-07-20 08:47:00.000 80 mm [Hg] Diastolic Blood Pressure 2023-07-18 15:35:00.000 74 mm [Hg] Diastolic Blood Pressure 2023-07-13 08:33:00.000 72 mm [Hg] Diastolic Blood Pressure 2023-07-11 07:39:00.000 78 mm [Hg] Diastolic Blood Pressure 2023-07-10 07:43:00.000 74 mm [Hg] Plan of Treatment Planned Activity Planned Date Details Comments Future Scheduled Test OXYGEN SAT URATION (PT). NOTIFY MD IF 02SATS BELOW 90% AFTER 10 MIN OF REST. [code = OXYGEN SATURATION (PT). NOTIFY MD IF 02SATS BELOW 90% AFTER 10 MIN OF REST.] Future Scheduled Test PAIN MANAG EMENT (PT) [code = PAIN MANAGEMENT (PT) ] Future Scheduled Test PHYSICAL T HERAPY TO INSTRUCT PATIENT/CAREGIVER ON RISK FOR HOSPITALIZATION/EMERGENCY ROOM VISITS, TEACH SIGNS AND SYMPTOMS THAT PUT PATIENT AT RISK, WHEN TO NOTIFY NURSE/PHYSICIAN OF COMPLICATIONS/DECLINE, AND WHEN TO CALL 911. [code = PHYSICAL THERAPY TO INSTRUCT PATIENT/CAREGIVER ON RISK FOR HOSPITALIZATION/EMERGENCY ROOM VISITS, TEACH SIGNS AND SYMPTOMS THAT PUT PATIENT AT RISK, WHEN TO NOTIFY NURSE/PHYSICIAN OF COMPLICATIONS/DECLINE, AND WHEN TO CALL 911.] Future Scheduled Test AGENCY MAY PERFORM A RESUMPTION OF CARE VISIT FOLLOWING ANY HOSPITAL ADMISSION. PHYSICAL THERAPY TO EVALUATE, ASSESS AND MONITOR, PROVIDE SKILLED THERAPEUTIC INTERVENTION, ACTIVITY, EDUCATION, AND TRAINING TO ADDRESS: [code = AGENCY MAY PERFORM A RESUMPTION OF CARE VISIT FOLLOWING ANY HOSPITAL ADMISSION. PHYSICAL THERAPY TO EVALUATE, ASSESS AND MONITOR, PROVIDE SKILLED THERAPEUTIC INTERVENTION, ACTIVITY, EDUCATION, AND TRAINING TO ADDRESS:] Future Scheduled Test TRANSFER T RAINING (PT) [code = TRANSFER TRAINING (PT)] Future Scheduled Test GAIT TRAIN ING (PT) [code = GAIT TRAINING (PT)] Future Scheduled Test NEUROMUSCU LAR RE-EDUCATION / BALANCE RETRAINING (PT) [code = NEUROMUSCULAR RE-EDUCATION / BALANCE RETRAINING (PT)] Future Scheduled Test THERAPEUTI C EXERCISES (PT) [code = THERAPEUTIC EXERCISES (PT)] Future Scheduled Test ORTHOPEDIC SURGICAL AFTERCARE (PT) MAY TEACH PATIENT APPLICATION OF CRYOTHERAPY FOR PAIN AND/OR SWELLING UP TO 20 MIN AT A TIME OVER INCISION/JOINT [code = ORTHOPEDIC SURGICAL AFTERCARE (PT) MAY TEACH PATIENT APPLICATION OF CRYOTHERAPY FOR PAIN AND/OR SWELLING UP TO 20 MIN AT A TIME OVER INCISION/JOINT] Future Scheduled Test IDENTIFY F ALL RISK FACTORS AND ESTABLISH HOME EXERCISE PROGRAM TO MINIMIZE FALL RISK. MAY TEACH THE PATIENT FLOOR RECOVERY WHEN CLINICALLY APPROPRIATE (PT) [code = IDENTIFY FALL RISK FACTORS AND ESTABLISH HOME EXERCISE PROGRAM TO MINIMIZE FALL RISK. MAY TEACH THE PATIENT FLOOR RECOVERY WHEN CLINICALLY APPROPRIATE (PT)] Future Scheduled Test STAIR CARLEEN DINA (PT) [code = STAIR TRAINING (PT)] Future Scheduled Test PHYSICAL T HERAPY TO OBSERVE WOUND/INCISION AND/OR INTACT DRESSING ON L KNEE AND REPORT EARLY SIGNS AND SYMPTOMS OF WOUND DETERIORATION, COMPLICATIONS, OR INFECTION TO RN CLINICAL COCONUT JELLY ROLLER AND/OR PHYSICIAN. [code = PHYSICAL THERAPY TO OBSERVE WOUND/INCISION AND/OR INTACT DRESSING ON L KNEE AND REPORT EARLY SIGNS AND SYMPTOMS OF WOUND DETERIORATION, COMPLICATIONS, OR INFECTION TO RN CLINICAL COCONUT JELLY ROLLER AND/OR PHYSICIAN.] Goal 2023-08-07 Patient Goal - I WANT TO GET BACK TO WALKING OUTSIDE AND DRIVING Goal Provider Goal - PATIENT WILL MAINTAIN OXYGEN SATURATION WITHIN PHYSICIAN ORDERED PARAMETERS THROUGHOUT EPISODE OF CARE Goal Provider Goal - PT GOAL: PATIENT/CAREGIVER WILL VERBALIZE UNDERSTANDING OF PAIN MANAGEMENT BY END OF EPISODE. Goal Provider Goal - PATIENT/CAREGIVER WILL VERBALIZE UNDERSTANDING OF SIGNS AND SYMPTOMS THAT PUT THE PATIENT AT RISK FOR HOSPITALIZATION /EMERGENCY ROOM VISITS, WHEN TO NOTIFY NURSE/PHYSICIAN OF COMPLICATIONS/DECLINE AND WHEN TO CALL 911. Goal Provider Goal - PATIENT WILL IMPROVE HOUSEHOLD TRANSFERS FROM SBA TO INDEPENDENT IN 3 WEEKS WITH SPC TO PROMOTE IMPROVED FUNCTIONAL MOBILITY Goal Provider Goal - PATIENT WILL IMPROVE HOUSEHOLD GAIT AND STAIRS FROM CGA TO INDEPENDENT IN 4 WEEKS WITH SPC TO ALLOW SAFE NAVIGATION THROUGHOUT HOME AND COMMUNITY Goal Provider Goal - PATIENT WILL IMPROVE TUG SCORE FROM 21 TO 16 SECONDS AND FIVE TIMES SIT TO STAND FROM 29 TO 20 SECONDS IN 8 WEEKS TO PROMOTE IMPROVED BALANCE INPUT INTEGRATION Goal Provider Goal - PATIENT WILL DEMONSTRATE NORMAL HEALING FOLLOWING SURGERY WITH NO COMPLICATIONS BY END OF EPISODE. Goal Provider Goal - PATIENT/CAREGIVER WILL DEMONSTRATE ADHERENCE TO FALL REDUCTION SELF MANAGEMENT TO MINIMIZE FALL BY END OF EPISODE. Goal Provider Goal - THE PATIENT WILL NOT DEMONSTRATE ANY WOUND COMPLICATIONS DURING THE EPISODE OF CARE. Reason for Visit INDEPENDENT IN THE COMMUNITY Encounters Start Date/Time End Date/Time Encounter Type Admission Type Attending [facility] Care Facility Care Department Encounter ID Discharge Date Discharge Status Discharge Condition Discharge Reason Percent Goals Met 2023-07-10 00:00:00 2023-08-07 00:00:00 Outpatient BRANNON SALGUERO [facility] [id number] 2023-08-07 00:00:00 DISCHARGE TO HOME OR SELF CARE INDEPENDEN T IN THE COMMUNITY HH OR [facility]- GOALS MET 100.00
== END 2024-05-21 09:28 | disposition home or self-care (01) ==
PROVIDERS: PCP Internal Medicine; Visit Provider Surgery
DX: K40.90 Unilateral inguinal hernia, without obstruction or gangrene, not specified as recurrent (principal)
CPT/HCPCS: 99024

== ENCOUNTER → 2024-05-21 09:07 | Outpatient (BNVA) | payer MEDICARE, SELFPAY | PROVIDERS: PCP Internal Medicine; Visit Provider Surgery | DX: Z48.815 Encounter for surgical aftercare following surgery on the digestive system (principal); Z98.890 Other specified postprocedural states | CPT/HCPCS: 99212 ==

== ENCOUNTER 2024-06-11 08:49 | Outpatient (AMB) | payer MEDICARE, SELFPAY ==
--- NOTE | 2024-06-11 08:49 | MHC.OFFVIS ---
Vital Signs 06/11/24 08:50 Height 5 ft 9 in Weight 241 lb BMI 35.6 Intake Visit Reasons: 3 week fu s/p repair Rt inguinal hernia w/mesh Intake Note: Patient is seen in office for one month follow up visit, post right inguinal hernia repair. Pt c/o: reports no complaints. Admissions Representative Required: No Accompanied by: Self / Same As Patient Allergies morphine [Morphine] Allergy (Severe, Verified 06/11/24 08:55) VOMITING, gi upset, hallucinations, vomiting albuterol Allergy (Verified 06/11/24 08:55) Unknown HPI Comments Details: 73-year-old male patient status post repair of a right inguinal hernia with mesh on 05/06/2024. He was found to have a pantaloon hernia repaired with a large PHS mesh. He tolerated the procedure well and reports no ongoing symptoms at this time. [facility] Medical History Inguinal hernia GERD (gastroesophageal reflux disease) Anemia Hx of adenomatous polyp of colon Impaired fasting glucose Skin lesion of left ear Degenerative joint disease (DJD) of lumbar spine T12 compression fracture Mild intermittent asthma in adult without complication Environmental and seasonal allergies SARIKA on CPAP Essential hypertension Benign prostatic hyperplasia Surgical History History of right inguinal hernia repair (05/06/24) History of back surgery History of total left knee replacement History of excision of mass (03/18/22) History of lumbar spinal fusion Hx of cholecystectomy History of knee surgery Family History Father CAD (coronary artery disease) HTN (hypertension) CVD (cardiovascular disease) Mother Medical history non-contributory Social History Housing: House Are you a primary wound care coordinator to a significant other at home: No Do you presently have visiting nurse or other home services: No Alcohol intake: current Alcohol intake frequency: 0-2 drinks per day Patient Tobacco Use Status: Never used Tobacco e-Cigarette/Vaping Use: Never Used Second Hand Smoke Exposure: No Current occupational status: retired Cognitive needs: No Hearing needs: Yes Vision needs: Yes Physical Exam Const General: healthy appearing Nutritional Appearance: well nourished Orientation/consciousness: patient oriented x3 Resp Effort & Inspection: normal respiratory effort GI Other: Soft, nondistended, nontender, well-healed incision in the right groin. No hernia noted with Valsalva maneuvers. Neuro General: patient oriented x3 Extrem Other: No edema Assessment & Plan Assessment & Plan (1) Right inguinal hernia: Code(s): K40.90 - Unilateral inguinal hernia, without obstruction or gangrene, not specified as recurrent Category: Medical Plan 73-year-old male patient status post repair of a right inguinal hernia with mesh. He tolerated the procedure well the wounds are healing nicely without evidence of infection or hernia recurrence. He may resume normal activity without restrictions and should follow up as needed. Coding Level of Care Code Global (39311) Diagnoses Right inguinal hernia K40.90
[2024-06-11 08:50] VITALS: BMI 35.6
--- OUTSIDE RECORDS SUMMARY | 2024-06-11 08:55 | XMS_ITS | Clinical Summary ---
Author Organization Unknown Care Team Providers Care In Home Baby Sitter Name Role Phone RADHA DUNLAP, АННА MISHRA Unavailable Unavaila hyacinth ARANGO PT, BRANNON Unavailable Unavailable KATELYNN ENVIRONMENTAL SCIENTISTS, WILLIAM Unavailable Unavailable Payers Payer Name Policy Type Policy Number Effective Date Expira tion Date MEDICARE.NGS.PDGM [id number] Problems Condition Name Condition Details Condition Category Status Onset Date Resolution Date Last Treatment Date Treating Clinician Comments [facility] COMPL OF INTERNAL LEFT KNEE PROSTHESIS, SUBS ENCNTR Active 07-10 00:00: 00 ESSENTIAL (PRIMARY) HYPERTENSION Active 07-10 00:00: 00 UNSPECIFIED ASTHMA, UNCOMPLICATE D Active 07-10 00:00: 00 BENIGN PROSTATIC HYPERPLASIA WITHOUT LOWER URINRY TRACT SYMP Active 07-10 00:00: 00 GASTRO-ESOPH AGEAL REFLUX DISEASE WITHOUT ESOPHAGITIS Active 07-10 00:00: 00 SNF (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 OF ANTIBIOTICS Active 07-10 00:00: 00 HISTORY OF FALLING Active 07-10 00:00: 00 SNF (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 OF OPIATE ANALGESIC Active 07-10 00:00: 00 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 VICE 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 OF 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 (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 OF ANTICOAGULAN TS Active 07-10 [...] 5 mg tablet 2022-06 00:00: 00 Yes [id number] HEART HEALTH 1 tablet DAILY 1 tablet DAILY (route: oral) Med Classific ation: Cardiovas cular Therapy Agents atenolol 25 mg tablet 2022-06 00:00: 00 Yes [id number] BP 1 tablet DAILY 1 tablet DAILY (route: oral) Med Classific ation: Cardiovas cular Therapy Agents dutasteride 0.5 mg capsule 2022-06 00:00: 00 Yes [id number] PROSTATE 1 capsule DAILY 1 capsule DAILY (route: oral) Med Classific ation: Genitouri nary Therapy montelukast 10 mg tablet 2022-06 00:00: 00 Yes [id number] ASTHMA 1 tablet DAILY 1 tablet DAILY (route: oral) Med Classific ation: Respirato ry Therapy Agents omeprazole 20 mg capsule,del ayed release 2022-06 00:00: 00 Yes [id number] ACID REFLUX 1 capsule DAILY 1 capsule DAILY (route: oral) Med Classific ation: Gastroint estinal Therapy Agents oxycodone 5 mg capsule 2022-06 00:00: 00 Yes [id number] PAIN 1 capsule EVERY 6 HOURS 1 capsule EVERY 6 HOURS (route: oral) Med Classific ation: Analgesic , Anti-infl ammatory or Antipyret ic tamsulosin 0.4 mg capsule 2022-06 00:00: 00 Yes [id number] PROSTATE 1 capsule DAILY 1 capsule DAILY (route: oral) Med Classific ation: Genitouri nary Therapy Tylenol Extra Strength 500 mg tablet 2022-06 00:00: 00 Yes [id number] PAIN 1-2 tablet EVERY 6 HOURS 1-2 tablet EVERY 6 HOURS (route: oral) Med Classific ation: Analgesic , Anti-infl ammatory or Antipyret ic Xarelto 10 mg tablet 2022-06 00:00: 00 07-10 00:00 :00 No [id number] HEART HEALTH 1 tablet DAILY 1 tablet DAILY (route: oral) Med Classific ation: Hematolog ical Agents Aspirin Childrens 81 mg chewable tablet 07-10 00:00: 00 Yes [id number] BLOOD THINER 1 tablet DAILY 1 tablet DAILY (route: oral) Med Classific ation: Hematolog ical Agents naproxen 500 mg tablet 07-10 00:00: 00 Yes [id number] INFLAMATION 1 tablet 2 TIMES DAILY 1 [...] DETERIORATION, COMPLICATIONS, OR INFECTION TO RN CLINICAL MAIL HANDLERS SUPERVISOR AND/OR PHYSICIAN. [code = PHYSICAL THERAPY TO OBSERVE WOUND/INCISION AND/OR INTACT DRESSING ON L KNEE AND REPORT EARLY SIGNS AND SYMPTOMS OF WOUND DETERIORATION, COMPLICATIONS, OR INFECTION TO RN CLINICAL MAIL HANDLERS SUPERVISOR AND/OR PHYSICIAN.] Goal 2023-08-07 Patient Goal - [...] End Date/Time Encounter Type Admission Type Attending [facility] Care Facility Care Department Encounter ID Discharge Date Discharge Status Discharge Condition Discharge Reason Percent Goals Met 2023-07-10 00:00:00 2023-08-07 00:00:00 Outpatient BRANNON SALGUERO [facility] [id number] 2023-08-07 00:00:00 DISCHARGE TO HOME OR SELF CARE INDEPENDEN T IN THE COMMUNITY HH OR PAL- GOALS MET 100.00
--- OUTSIDE RECORDS SUMMARY | 2024-06-11 08:55 | XMS_ITS | Clinical Summary ---
Author Organization Unknown Care Team Providers Care Acetylene Torch Operator Name Role Phone RADHA DUNLAP, АННА MISHRA Unavailable Unavaila hyacinth ARANGO PT, BRANNON Unavailable Unavailable KATELYNN ARCHITECTURAL JOB CAPTAIN, WILLIAM Unavailable Unavailable Payers Payer Name Policy Type Policy Number Effective Date Expira tion Date MEDICARE.NGS.PDGM [id number] Problems Condition Name Condition Details Condition Category Status Onset Date Resolution Date Last Treatment Date Treating Clinician Comments [facility] COMPL OF INTERNAL LEFT KNEE PROSTHESIS, SUBS ENCNTR Active 07-10 00:00: 00 ESSENTIAL (PRIMARY) HYPERTENSION Active 07-10 00:00: 00 UNSPECIFIED ASTHMA, UNCOMPLICATE D Active 07-10 00:00: 00 BENIGN PROSTATIC HYPERPLASIA WITHOUT LOWER URINRY TRACT SYMP Active 07-10 00:00: 00 GASTRO-ESOPH AGEAL REFLUX DISEASE WITHOUT ESOPHAGITIS Active 07-10 00:00: 00 LONGTERM (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 OF ANTIBIOTICS Active 07-10 00:00: 00 HISTORY OF FALLING Active 07-10 00:00: 00 LONGTERM (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 OF OPIATE ANALGESIC Active 07-10 00:00: 00 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 DEFENSE SPECIALIST (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 OF ANTICOAGULAN TS Active 07-10 [...] 5 mg tablet 2022-06 00:00: 00 Yes [id number] HEART HEALTH 1 tablet DAILY 1 tablet DAILY (route: oral) Med Classific ation: Cardiovas cular Therapy Agents atenolol 25 mg tablet 2022-06 00:00: 00 Yes [id number] BP 1 tablet DAILY 1 tablet DAILY (route: oral) Med Classific ation: Cardiovas cular Therapy Agents dutasteride 0.5 mg capsule 2022-06 00:00: 00 Yes [id number] PROSTATE 1 capsule DAILY 1 capsule DAILY (route: oral) Med Classific ation: Genitouri nary Therapy montelukast 10 mg tablet 2022-06 00:00: 00 Yes [id number] ASTHMA 1 tablet DAILY 1 tablet DAILY (route: oral) Med Classific ation: Respirato ry Therapy Agents omeprazole 20 mg capsule,del ayed release 2022-06 00:00: 00 Yes [id number] ACID REFLUX 1 capsule DAILY 1 capsule DAILY (route: oral) Med Classific ation: Gastroint estinal Therapy Agents oxycodone 5 mg capsule 2022-06 00:00: 00 Yes [id number] PAIN 1 capsule EVERY 6 HOURS 1 capsule EVERY 6 HOURS (route: oral) Med Classific ation: Analgesic , Anti-infl ammatory or Antipyret ic tamsulosin 0.4 mg capsule 2022-06 00:00: 00 Yes [id number] PROSTATE 1 capsule DAILY 1 capsule DAILY (route: oral) Med Classific ation: Genitouri nary Therapy Tylenol Extra Strength 500 mg tablet 2022-06 00:00: 00 Yes [id number] PAIN 1-2 tablet EVERY 6 HOURS 1-2 tablet EVERY 6 HOURS (route: oral) Med Classific ation: Analgesic , Anti-infl ammatory or Antipyret ic Xarelto 10 mg tablet 2022-06 00:00: 00 07-10 00:00 :00 No [id number] HEART HEALTH 1 tablet DAILY 1 tablet DAILY (route: oral) Med Classific ation: Hematolog ical Agents Aspirin Childrens 81 mg chewable tablet 07-10 00:00: 00 Yes [id number] BLOOD THINER 1 tablet DAILY 1 tablet DAILY (route: oral) Med Classific ation: Hematolog ical Agents naproxen 500 mg tablet 07-10 00:00: 00 Yes [id number] INFLAMATION 1 tablet 2 TIMES DAILY 1 [...] DETERIORATION, COMPLICATIONS, OR INFECTION TO RN CLINICAL RIVET TESTER AND/OR PHYSICIAN. [code = PHYSICAL THERAPY TO OBSERVE WOUND/INCISION AND/OR INTACT DRESSING ON L KNEE AND REPORT EARLY SIGNS AND SYMPTOMS OF WOUND DETERIORATION, COMPLICATIONS, OR INFECTION TO RN CLINICAL RIVET TESTER AND/OR PHYSICIAN.] Goal 2023-08-07 Patient Goal - [...] End Date/Time Encounter Type Admission Type Attending [facility] Care Facility Care Department Encounter ID Discharge Date Discharge Status Discharge Condition Discharge Reason Percent Goals Met 2023-07-10 00:00:00 2023-08-07 00:00:00 Outpatient BRANNON SALGUERO [facility] [id number] 2023-08-07 00:00:00 DISCHARGE TO HOME OR SELF CARE INDEPENDEN T IN THE [facility] OR [facility]- GOALS MET 100.00
== END 2024-06-11 08:56 | disposition home or self-care (01) ==
PROVIDERS: PCP Internal Medicine; Visit Provider Surgery
DX: K40.90 Unilateral inguinal hernia, without obstruction or gangrene, not specified as recurrent (principal)
CPT/HCPCS: 99024

== ENCOUNTER → 2024-06-11 08:49 | Outpatient (BNVA) | payer MEDICARE, SELFPAY | PROVIDERS: PCP Internal Medicine; Visit Provider Surgery | DX: Z48.815 Encounter for surgical aftercare following surgery on the digestive system (principal); Z98.890 Other specified postprocedural states | CPT/HCPCS: 99212 ==

== ENCOUNTER → 2024-08-12 08:46 | Outpatient (REF) | payer MEDICARE, SELFPAY ==
--- OUTSIDE RECORDS SUMMARY | 2024-08-12 09:18 | XMS_ITS ---
Author Organization [facility] Address [address] [place] [address] Care Team Providers Care Student Success Coach Name Role Phone Savi DUNLAP, Melina Murray Primary Care Provider Un available Brielle Russo Unavailable [phone] Eduar Watson Unavailable [phone] Allergies Allergen (clinical drug ingredient) Drug/Non Drug Allergy documented on EMR Reaction Allergy Type Onset Date Status albuterol Albuterol resp arrest Drug Allergy Activ e acetaminophen / oxycodone Percocet hallucinations Drug Allergy Active morphine Morphine severe vomiting Drug Allergy A ctive REASON FOR VISIT Painful nail(s) aggrevated by shoes and causing difficulty standing/walking. Medications Medication SIG (Take, Route, Frequency, Duration) Notes Start Date End Date Status baby asprin as directed Not-Ta mckenna Xopenex HFA 45 MCG/ACT PRN Inhalation PRN Not-Taking Albuterol Not-Taking Flonase 50 MCG/ACT 1 spray in each nost ril Nasally Once a day for 30 day(s) Not-Taking Keflex 500 MG 1 capsule Orally iris ry 12 hrs for 10 day(s) 01/25/2018 Not-Taking Singulair 10 MG 1 tablet in the even ing Orally Once a day for 30 day(s) Active Omeprazole 20 MG 1 capsule Orally Onc e a day for 30 day(s) Active ZyrTEC Allergy 10 MG 1 tablet Orally Onc e a day for 30 day(s) Active Norvasc 5 MG 1 tablet Orally Once a day for 30 day(s) Active Multivitamins as directed Orally Active Ciclopirox Olamine 0.77 % 1 application to affected area Externally Twice a day to effected areas on feet for 30 days Active Flomax 0.4 MG 1 capsule 30 minutes after the same meal each day Orally Once a day for 30 day(s) Active Atenolol 25 MG 1 tablet Orally Once a day for 30 day(s) Active Advil 200 MG 1 capsule as needed Orally every 6 hrs 01/31/2013 Active Social History Tobacco Use: Social History Observation Description Date Details (start date - stop date) Never Smoker NA - NA Tobacco Use/Smoking Question Answer Notes Are you a: nonsmoker Additional Findings: Tobacco Non-User Current no n-smoker Tobacco use other than smoking: Question Answer Notes Are you an other tobacco user? No Vital Signs Height 5ft9in in 01/25/2024 Weight 220 lbs 01/25/2024 BMI 32.48 kg/m2 01/25/2024 Blood pressure systolic 120 mm Hg 01/25/20 24 Blood pressure diastolic 76 mm Hg 024 Encounters Encounter Location Date Provider Diagnosis [facility] [address] [place] [address] 01/25/2024 Eduar Watson Other hammer toe(s) (acquired), right foot M20.41 ; Tinea unguium B35.1 ; Pain in right toe(s) M79.674 ; Pain in left toe(s) M79.675 ; Ingrowing nail L60.0 and Tinea pedis B35.3 Assessments Encounter Date Diagnosis (ICD Code) Assessment Notes Treatment Notes Treatment Clinical Notes Section Notes 01/25/2024 Other hammer toe(s) (acquired), right foot (ICD-10 - M20.41) 01/25/2024 Tinea unguium (ICD-10 - B35.1) 01/25/2024 Pain in right toe(s) (ICD-10 - M79.674) 01/25/2024 Pain in left toe(s) (ICD-10 - M79.675) 01/25/2024 Ingrowing nail (ICD-10 - L60.0) 01/25/2024 Tinea pedis (ICD-10 - B35.3) Plan Of Treatment Medication Medication Name Sig Start Date Stop Date Notes Ciclopirox Olamine 0.77 % 1 application to affected area Externally Twice a day to effected areas on feet for 30 days Next Appt Details Follow Up: 3 Months, Reason: Provider Name:Brielle Meadows turner, 09/16/2024 10:15:00 AM, [address] [place], [address], Procedure Notes * Category Sub-Category Detail Notes Debride Nail 6-10 Nail debridement Nail debridem ent performed extensively to reduce/remove overall nail length and girth, subungual debris, and necrotic tissue, by manual and electrical means with use of a nail nipper and/or dremel, to more viable healthy nail plate or bed tissue 6-10. Silver nitrate used for any petechial bleeding as necessary. Patient chooses, no pharmaceutical tx (09542) Progress Notes * Levi PEPE LDOB:1950 ( 73 yo M)Acc No.[id number]:01/25/2024 Progress Note Patient:?Levi Pepe Provider:?Eduar Watson DPM :1950???Age:73 Y???Sex:Male Fer e:01/25/2024 Address:[address] [place] [address] Pcp:Art Moya Subjective: * Chief Complaints: * ??? Painful nail(s) aggrevat ed by shoes and causing difficulty standing/walking. * HPI: ???Painful Nails:?Pt States Last PCP Visit:?Date:?08/15/2023 ???Foot Pain:?Nature:?numbness.?Location:?Top, LEFT, Forefoot, Midfoot.?Onset:?lbp.?Toe pain:?Nature:?aching, tenderness, stiffness.?Location:?2nd toe, 3rd toe, Right foot.?Duration:?several months.?Onset/Cause:?unknown.?Aggravated by:?shoes, any pressure.?Treatments:?change in shoes.?Severity/Quality:?moderate.?Misc:?pt had left knee replacement at [facility] 05/23/23--compliacated by tendon and quad muscle rupture and re-sx 07/04/23.? * ROS:?General/Constitutional:?Nausea?denies, denies.?Vomiting?denies, denies.?Hunger Thirst?denies, denies.?Loss appetite?denies, denies.?Chills?denies, denies.?Fatigue?denies, denies.?Fever?denies, denies.?Night Sweats denies, denies.?Unexplained weight loss?denies, denies.?Unexplained weight gain?denies, denies.?HEENTM:?Dentures?denies, denies.?Dizziness?denies, denies.?Glasses/contacts?admits.?Retinopathy?denies, denies.?Blurred/double vision?denies, denies.?TMJ?denies, denies.?Discharge/drainage?denies, denies. Implants?denies, denies.?Sore throat?denies, denies.?Dental implants?denies, denies.?Hard of hearing ?denies, denies.?Difficulty chewing/swallowing/speaking?denies, denies.?Nose bleeds?denies, denies.?Sore mouth?denies, denies.?Respiratory:?On Oxygen?denies, denies.?Pneumonia/pleurisy?denies, denies.?Bronchitis?denies, denies.?Emphysema?denies, denies.?Coughing?denies, denies.?Cough blood?denies, denies.?Shortness of breath?denies, denies.?Wheezing?denies, denies.?Cardiovascular:?Pacemaker?denies, denies.?MVP?denies, denies.?WPW?denies, denies.?CHF?denies, denies.?Heart attack?denies, denies.?Septal defect?denies, denies.?Rapid beat?denies, denies.?Chest pain ?denies, denies.?Atrial Fib.?denies, denies.?Murmur/Palpitations?denies, denies.?Gastrointestinal:?Hemorrhoids?denies, denies.?Stomach/Abdominal pain?denies, denies.?Dark blood stool?denies, denies.?Irritable bowel ?denies, denies.?Constipation?denies, denies.?Diarrhea?denies, denies.?Hematology:?Swelling?denies, denies.?Clots?denies, denies.?Varicose Veins?denies, denies.?Bruising?denies, denies.?Bleeding problem?denies, denies.?Genitourinary:?Blood urine?denies, denies.?Frequent/Painfu/urination/bladder control?denies, denies.?Kidney stones?denies, denies.?Infection (UTI)?denies, denies.?Nephropathy?denies, denies.?sex trans dis (STD)?denies, denies.?Prostate?denies, denies.?Musculoskeletal:?Hammertoes?admits.?Bunions?denies, denies.?Back Pain?denies, denies.?Muscle Cramps/ Resting?denies, denies.?Muscle cramps / walking?denies, denies.?Generalized aches and pains?denies, denies.?Weakness?denies, denies.?Integ.:?Maldonado?denies, denies.?Scars?denies, denies.?Corns/calluses?denies, denies.?Ingrown nails?denies, denies.?Painful nails?denies, denies.?Open Sores?denies, denies.?Rashes?denies, denies.?Neurologic:?Difficulty sleeping?denies, denies.?Brain disorder?denies, denies.?Numbness?denies, denies.?Balance trouble?denies, denies.?Confusion?denies, denies.?Fainting/blackouts?denies, denies.?Tingling?denies, denies.?Tremors?denies, denies.? * Medical History:? * Surgical History:?knee surge ry 06/19, 03/20carpal tunnel surgery/ bilat tonsillectomy cardiac catheterization 07/25gall bladder 03/1986laser vein procedure 05/2016back surgery 07/12/2019,04/07/21carpal tunnel surgery 07/12/2019vein sx left leg Tooth extraction 08/05/2021neck mass surgery 03/18/2022L knee replacement 05/2023L knee surgery 06/2023 * Hospitalization/Major Diagno stic Procedure:?[facility] [place] St[place] leg 12/02/2019PCP /[facility] [place] [facility] - ear wax/Tooth abscess 07/29/2021 * Family History:?Mother: dece ased, foot problems.?Father: .?Son(s): alive.?Spouse: alive.?3 son(s) . .? * Social History:?Tobacco Use:?Tobacco Use/Smoking?Are you a:?nonsmoker ?Additional Findings: Tobacco Non-User?Current non-smoker ?Tobacco use other than smoking?Are you an other tobacco user??No ???Miscellaneous:?Caffeine: yes, 3-5 cups per day. ?Children: yes, three. ?no Exercise. ?Marital status: . 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 * Medications:?TakingCiclopiro x Olamine 0.77 % Cream 1 application to affected area Externally Twice a day to effected areas on feetAdvil 200 MG Capsule 1 capsule as needed Orally every 6 hrsAtenolol 25 MG Tablet 1 tablet Orally Once a dayFlomax 0.4 MG Capsule 1 capsule 30 minutes after the same meal each day Orally Once a dayNorvasc 5 MG Tablet 1 tablet Orally Once a dayMultivitamins Tablet as directed Orally Omeprazole 20 MG Capsule Delayed Release 1 capsule Orally Once a daySingulair 10 MG Tablet 1 tablet in the evening Orally Once a dayZyrTEC Allergy 10 MG Tablet 1 tablet Orally Once a dayTaking Ciclopirox Olamine 0.77 % Cream 1 application to affected area Externally Twice a day to effected areas on feetTaking Advil 200 MG Capsule 1 capsule as needed Orally every 6 hrsTaking Atenolol 25 MG Tablet 1 tablet Orally Once a dayTaking Flomax 0.4 MG Capsule 1 capsule 30 minutes after the same meal each day Orally Once a dayTaking Norvasc 5 MG Tablet 1 tablet Orally Once a dayTaking Multivitamins Tablet as directed Orally Taking Omeprazole 20 MG Capsule Delayed Release 1 capsule Orally Once a dayTaking Singulair 10 MG Tablet 1 tablet in the evening Orally Once a dayTaking ZyrTEC Allergy 10 MG Tablet 1 tablet Orally Once a dayNot-Taking/PRNAlbuterol Xopenex HFA 45 MCG/ACT Aerosol PRN Inhalation PRNbaby asprin as directed Keflex 500 MG Capsule 1 capsule Orally every 12 hrsFlonase 50 MCG/ACT Suspension 1 spray in each nostril Nasally Once a dayMedication List reviewed and reconciled with the patientNot-Taking/PRN Albuterol Not-Taking/PRN Xopenex HFA 45 MCG/ACT Aerosol PRN Inhalation PRNNot-Taking/PRN baby asprin as directed Not-Taking/PRN Keflex 500 MG Capsule 1 capsule Orally every 12 hrsNot-Taking/PRN Flonase 50 MCG/ACT Suspension 1 spray in each nostril Nasally Once a dayMedication List reviewed and reconciled with the patient * Allergies:?Albuterol: resp a rrestPercocet: hallucinationsMorphine: severe vomitingyes[Allergies Verified] Objective: * Vitals:?Ht: 5ft9in, Wt:220, BMI:32.48, Shoe size: 10, BP:120/76 mm Hg, Ht-cm: 175.26 cm, Wt-k.79 kg. * Examination: ???General Examination: ?GENERAL APPEARANCE:?pleasant, alert, well nourished, well developed, well hydrated, with good attention to hygene/body habitus, and in no acute distress.?ORIENTED:?person,place, and time.?Neurological: ?SENSORY:? Neurological exam demonstrates reduced light touch sensation reduced sharp/dull pin prick discrimination reduced vibration sensation reduced proprioception sensation in a stocking fashion Right.?TINEL'S COMPRESSION:?Negative tarsal tunnel, willy pedis, and medial calcaneal nerves B/L .?BABINSKI REFLEX:?absent .?Vascular: ?DP PULSES:?2/4, B/L.?PT PULSES:? 0/4, B/L.?CAPILLARY FILL TIME:?3 secs. per digit, B/L.?SKIN TEMPERTURE GRADIENT OF THE LOWER EXTERMITIES:?warm to cool, proximal to distal, B/L.?HAIR GROWTH/TEXTURE/ELASTICITY/TURGOR:? decreased, B/L.?PIGMENTATION:?normal, B/L.?EDEMA:?no edema.?TELANGECTASIA:? present.?VARICOSITIES:? present, moderate, nonpainful, B/L.?Dermatologic: ?SKIN FINDINGS:?Skin exam reveals Keratotic lesion(s) located at, Medial plantar, TA, T5.?Orthopedic: ?MUSCLE STRENGTH:?5/5 all groups in a symmetrical fashion , B/L.?GAIT ABNORMALITY:?pronated, abducted, B/L.?DIGITAL DEFORMITIES:? Digital contracture t6 is rigid and flexible hts t7.?Nails: ?NAILS are:?elongated,overgrown,dystrophic,greater than 3mm thick,discolored and friable with crumbly malodorous subungual debris, with pain on palpation , 1-5 Right foot, TA, T1.?Ingrown Nail: ?INSPECTION:? Reveals nail incurvation, pain on palpation, groove hypertrophy, groove ischemia, Bilateral nail borders, TA, T5.? Assessment: * Assessment: 1.?Other hammer toe(s) (acqu ired), right foot - M20.41 (Primary)?2.?Tinea unguium - B35.1?3.?Pain in right toe(s) - M79.674?4.?Pain in left toe(s) - M79.675?5.?Ingrowing nail - L60.0?6.?Tinea pedis - B35.3? Plan: * Treatment: * Procedures:?Debride Nail 6-10:?Nail debridement?Nail debridement performed extensively to reduce/remove overall nail length and girth, subungual debris, and necrotic tissue, by manual and electrical means with use of a nail nipper and/or dremel, to more viable healthy nail plate or bed tissue 6-10. Silver nitrate used for any petechial bleeding as necessary. Patient chooses, no pharmaceutical tx (54880).? * Procedure Codes:?08361 DEBRI DE NAIL, 6 OR MORE, Modifiers: XS * Preventive Medicine:? ??Counseling:?Discussion:?-13: Office or other outpatient visit for the evaluation and management of an established patient, which required a medically appropriate history and/or examination and LOW level of DECISION MAKING for: 1 STABLE ACUTE UNCOMPLICATED PROBLEM, 2 OR MORE MINOR PROBLEMS, OR 1 STABLE CHRONIC PROBLEM, THAT POSE(S) A LOW RISK FOR MORBIDITY/MORTALITY. The visit on the day of the encounter encompassed interpreting the data and educating the patient as to the nature of their condition, treatment options available according to their individual PMH, meds, allergies, and overall health/living conditions, as well as any potential risks or complications that may occur from a failure to adhere to, and participate in, the recommended course of therapy. The discussion included a complete verbal, and/or written explanation of the examination results, any x-rays taken, the proposed diagnosis, and outline of the treatment plan. A schedule for future care needs was also explained. The patient verbalized an understanding of the instructions at this time and agreed to be an active participant in their treatment. If the patient should think of any questions or concerns after the visit, I have encouraged the patient to call the office; pt still not ready to proceed with sx tx.? * Follow Up:?3 Months * Images: * Sign off status: Completed true * Provider:?Eduar Watson DPM Date:? 024 Generated for Ashtyn agudelo/Khurram/Regine on:?08/12/2024 09:18 AM EST History and Physical Notes * HPI (History of Present Illness) Category Sub-Category Detail Notes Category Not es Toe pain Nature: aching, tenderness, stiffnes s Location: 2nd toe, 3rd toe, Ri ght foot Duration: several months Onset/Cause: unknown Aggravated by: shoes, any pressure Treatments: change in shoes Severity/Quality: moderate Misc: pt had left knee rep lacement at [facility] 05/23/23--compliacated by tendon and quad muscle rupture and re-sx 07/04/23 Painful Nails Pt States Last PCP Visit: Date:: 08/15/2023 Foot Pain Nature: numbness Location: Top, LEFT, Forefoot, Midfoot Onset: lbp Examination Category Sub-Category Detail Notes Category Not es Ingrown Nail INSPECTION: Reveals nail inc urvation, pain on palpation, groove hypertrophy, groove ischemia, Bilateral nail borders, TA, T5 Neurological SENSORY: Neurological exa m demonstrates reduced light touch sensation reduced sharp/dull pin prick discrimination reduced vibration sensation reduced proprioception sensation in a stocking fashion Right BABINSKI REFLEX: absent TINEL'S COMPRESSION: Negative tarsal zoltan wan, willy pedis, and medial calcaneal nerves B/L Dermatologic SKIN FINDINGS: Skin exam reveal s Keratotic lesion(s) located at, Medial plantar, TA, T5 Orthopedic GAIT ABNORMALITY: pronated, abducted, B/L DIGITAL DEFORMITIES: Digital contracture t6 is rigid and flexible hts t7 MUSCLE STRENGTH: 5/5 all groups in a symmetrical fashion , B/L General Examination GENERAL APPEARANCE: pleasant , alert, well nourished, well developed, well hydrated, with good attention to hygene/body habitus, and in no acute distress ORIENTED: person,place, and ti me Vascular DP PULSES (B): 2/4, B/L PT PULSES (B): 0/4, B/L CAPILLARY FILL TIME: 3 secs. per digit, B/L TEMPERTURE GRADIENT (C): warm to cool, p roximal to distal, B/L TROPHIC CONDITION-TEXTURE/ELASTICITY/TURGOR/HAIR GROWTH (B): decreased, B/L EDEMA (C): no edema TELANGECTASIA: present VARICOSITIES: present, moderate, n onpainful, B/L PIGMENTATION: normal, B/L Nails NAILS are: elongated,overgr own,dystrophic,greater than 3mm thick,discolored and friable with crumbly malodorous subungual debris, with pain on palpation , 1-5 Right foot, TA, T1
--- OUTSIDE RECORDS SUMMARY | 2024-08-12 09:18 | XMS_ITS | Clinical Summary ---
Author Organization [facility] Address [address] [place] [id number] Care Team Providers Care Chick Grader Name Role Phone Melina Hou MD Primary Care Provider [phone] Social History Tobacco Use Types Packs/Day Years Used Date Smoking Tobacco: Never Assessed Sex and Gender Information Value Date Recorded Sex Assigned at Not on file Legal Sex Male 10:10 PM EST Gender Identity Not on file Sexual Orientation Not on file Plan of Treatment Health Maintenance Due Date Last Done Comments DTaP,Tdap,and Td Vaccines (1 - Tdap) 1969 Pneumococcal Vaccine: 50+ Ye ars (1 of 1 - PCV) 2000 Zoster Vaccines (1 of 2) 2000 Abdominal Aortic Aneurysm (A AA) Screen 05/14/2022 Cholesterol Screening (Lipid Panel) 05/14/2022 Colorectal Cancer Screening: Colonoscopy 05/14/2022 Depression Screening 05/14/2022 Falls Risk Assessment 05/14/2022 Hepatitis C Screening 05/14/2022 Social Influencers of Health Screening 05/14/2022 COVID-19 Vaccine ( - 2023-2 5 season) 2024 Influenza Vaccine (#1) 2024 RSV Immunization Patients 60 + Years Old (1 - 1-dose 75+ series) 2025 HIB Vaccines Aged Out No longer eligi ble based on patient's age to complete this topic HPV Vaccines Aged Out No longer eligi ble based on patient's age to complete this topic Hepatitis A Vaccines Aged Out No long er eligible based on patient's age to complete this topic Hepatitis B Vaccines Aged Out No long er eligible based on patient's age to complete this topic IPV Vaccines Aged Out No longer eligi ble based on patient's age to complete this topic MMR Vaccines Aged Out No longer eligi ble based on patient's age to complete this topic Meningococcal ACWY Vaccine Aged Out N o longer eligible based on patient's age to complete this topic Meningococcal B Vacine Aged Out No lo nger eligible based on patient's age to complete this topic RSV Immunization Patients Un carmen 20 months Aged Out No longer eligible b ased on patient's age to complete this topic Varicella Vaccines Aged Out No longer eligible based on patient's age to complete this topic Care Teams Chick Grader Relationship Specialty Start Date End Date Melina Hou MD [address] [place] [address] PCP - General Internal Medicine 11/20/18
--- OUTSIDE RECORDS SUMMARY | 2024-08-12 09:18 | XMS_ITS ---
Author Organization [facility] Address [address] [place] [address] Care Team Providers Care Funds Transfer Clerk Name Role Phone Savi DUNLAP, Melina Murray Primary Care Provider Un available RussoBrielle Unavailable [phone] Allergies Allergen (clinical drug ingredient) Drug/Non Drug Allergy documented on EMR Reaction Allergy Type Onset Date Status albuterol Albuterol resp arrest Drug Allergy Activ e acetaminophen / oxycodone Percocet hallucinations Drug Allergy Active morphine Morphine severe vomiting Drug Allergy A ctive REASON FOR VISIT Skin Problem, Painful nail(s) aggrevated by shoes and causing difficulty standing/walking. Medications Medication SIG (Take, Route, Frequency, Duration) Notes Start Date End Date Status Multivitamins as directed Orally Active Omeprazole 20 MG 1 capsule Orally Onc e a day for 30 day(s) Active Ciclopirox Olamine 0.77 % 1 application Externally Twice a day to skin of feet including between the toes for 30 days Active Singulair 10 MG 1 tablet in the even ing Orally Once a day for 30 day(s) Active ZyrTEC Allergy 10 MG 1 tablet Orally Onc e a day for 30 day(s) Active Advil 200 MG 1 capsule as needed Orally every 6 hrs 01/31/2013 Active Atenolol 50 MG 1 tablet Orally Once a day for 30 days Active Ciclopirox Olamine 0.77 % 1 application to affected area Externally Twice a day to effected areas on feet for 30 days Active Flomax 0.4 MG 1 capsule 30 minutes after the same meal each day Orally Once a day for 30 day(s) Active Norvasc 5 MG 1 tablet Orally Once a day for 30 day(s) Active Keflex 500 MG 1 capsule Orally iris ry 12 hrs for 10 day(s) 01/25/2018 Not-Taking Flonase 50 MCG/ACT 1 spray in each nost ril Nasally Once a day for 30 day(s) Not-Taking Xopenex HFA 45 MCG/ACT PRN Inhalation PRN Not-Taking baby asprin as directed Not-Ta mckenna Albuterol Not-Taking Social History Tobacco Use: Social History Observation Description Date Details (start date - stop date) Never Smoker NA - NA Tobacco Use/Smoking Question Answer Notes Are you a: nonsmoker Additional Findings: Tobacco Non-User Current no n-smoker Alcohol Screen Question Answer Notes Did you have a drink contain ing alcohol in the past year? Yes How often did you have a dri nk containing alcohol in the past year? 2 to 3 times a week (3 points) Points 3 Interpretation Negative Tobacco use other than smoking: Question Answer Notes Are you an other tobacco user? No Vital Signs Height 5ft9in in 04/29/2024 Weight 225 lbs 04/29/2024 BMI 33.22 kg/m2 04/29/2024 Blood pressure systolic 120 mm Hg 04/29/20 24 Blood pressure diastolic 76 mm Hg 024 Procedures Procedure Date Ordered Date Performed Result Body Sit e 91162-LLZRNNN NAIL, 6 OR MORE 04/29/2024 N/A Encounters Encounter Location Date Provider Diagnosis [facility] [address] [address] 04/29/2024 Brielle Russo Tinea pedis of both feet B35.3 ; Tinea unguium B35.1 ; Pain in right toe(s) M79.674 and Pain in left toe(s) M79.675 Assessments Encounter Date Diagnosis (ICD Code) Assessment Notes Treatment Notes Treatment Clinical Notes Section Notes 04/29/2024 Tinea pedis of both feet (ICD-10 - B35.3) 04/29/2024 Tinea unguium (ICD-10 - B35.1) 04/29/2024 Pain in right toe(s) (ICD-10 - M79.674) 04/29/2024 Pain in left toe(s) (ICD-10 - M79.675) Plan Of Treatment Medication Medication Name Sig Start Date Stop Date Notes Ciclopirox Olamine 0.77 % 1 application Externally Twice a day to skin of feet including between the toes for 30 days Pending Test Test Name Order Date [id number] NAIL, 6 OR MORE 04/29/2024 Next Appt Details Follow Up: 3 Months, Reason: Provider Name:Brielle Meadows turner, 09/16/2024 10:15:00 AM, [address] [place], [address], Procedure Notes * Category Sub-Category Detail Notes Debride Nail 6-10 Nail debridement Performance o f this nail treatment by a nonprofessional would put this patients foot and overall health at risk. Therefore, debridement to affected nail(s), as described in exam, was performed extensively to reduce/remove overall nail length, girth, thickness, subungual debris, and necrotic tissue, by manual and/or electrical means through the use of a nail nipper and/or dremel-type concrete wall grinder operator, to a more viable healthy nail plate or bed tissue 6-10. Silver nitrate used for any petechial bleeding as necessary. Definitive antifungal treatment options have been reviewed and discussed with the patient. The patient chooses, no pharmaceutical tx - 57126 Progress Notes * Levi PEPE LDOB:1950 ( 73 yo M)Acc No.[id number]:04/29/2024 Progress Note Patient:?Levi PEPE Provider:?Brielle Russo DPM :1950???Age:73 Y???Sex:Male Fer e:04/29/2024 Address:[address] [place], [place] [id number] Pcp:Art Moya Subjective: * Chief Complaints: * ???Skin Problem Painful nail (s) aggrevated by shoes and causing difficulty standing/walking. * HPI: ???Skin problems:?Nature:?scaling , redness, itching.?Location:?B/L .?Duration:?several days.?Course:?worse.?Misc:?states he was told he was prescribed cream last visit however did not go to his pharmacy.?Painful Nails:?Pt States Last PCP Visit:?Date:?08/15/2023 * ROS:?General/Constitutional:?Nausea?denies.?Vomiting?denies.?Hunger Thirst?denies.?Loss appetite?denies.?Chills?denies.?Fatigue?denies.?Fever?denies.?Night Sweats?denies.?Unexplained weight loss?denies.?Unexplained weight gain?denies.?HEENTM:?Dentures?denies.?Dizziness?denies.?Glasses/contacts?admits.?Retinopathy?de nies.?Blurred/double vision?denies.?TMJ?denies.?Discharge/drainage?denies.?Implants?denies.?Sore throat?denies.?Dental implants?denies.?Hard of hearing ?denies.?Difficulty chewing/swallowing/speaking?denies.?Nose bleeds?denies.?Sore mouth?denies.?Respiratory:?On Oxygen?denies.?Pneumonia/pleurisy?denies.?Bronchitis?denies.?Emphysema?denies.?C oughing?denies.?Cough blood?denies.?Shortness of breath?denies.?Wheezing?denies.?Cardiovascular:?Pacemaker?denies.?MVP?denies.?WPW?denies.?CHF?denies.?Heart attack?denies.?Septal defect?denies.?Rapid beat?denies.?Chest pain ?denies.?Atrial Fib.?denies.?Murmur/Palpitations?denies.?Gastrointestinal:?Hemorrhoids?denies.?Stomach/Abdominal pain?denies.?Dark blood stool?denies.?Irritable bowel ?denies.?Constipation?denies.?Diarrhea?denies.?Hematology:?Swelling?denies.?Clots?denies.?Varicose Veins?denies.?Bruising?denies.?Bleeding problem?denies.?Genitourinary:?Blood urine?denies.?Frequent/Painfu/urination/bladder control?denies.?Kidney stones?denies.?Infection (UTI)?denies.?Nephropathy?denies.?sex trans dis (STD)?denies.?Prostate?denies.?Musculoskeletal:?Hammertoes?denies.?Bunions?denies.?Back Pain?denies.?Muscle Cramps/ Resting?denies.?Muscle cramps / walking?denies.?Generalized aches and pains?denies.?Weakness?denies.?Integ.:?[place]?denies.?Scars?denies.?Corns/calluses?denies.?Ingrown nails?admits.?Painful nails?admits.?Open Sores?denies.?Rashes?denies.?Neurologic:?Difficulty sleeping?denies.?Brain disorder?denies.?Numbness?denies.?Balance trouble?denies.?Confusion?denies.?Fainting/blackouts?denies.?Tingling?denies.?Tr emors?denies.? * Medical History:? * Surgical History:?knee surge ry 06/19, 03/20carpal tunnel surgery/ bilat tonsillectomy cardiac catheterization 07/25gall bladder 03/1986laser vein procedure 05/2016back surgery 07/12/2019,04/07/21carpal tunnel surgery 07/12/2019vein sx left leg 07/30/-Tooth extraction 08/05/2021neck mass surgery 03/18/2022L knee replacement 05/2023L knee surgery 06/2023 * Hospitalization/Major Diagno stic Procedure:?[facility]- Stiches right leg 12/02/2019PCP /[facility] - ear wax/Tooth abscess 07/29/2021 * Family History:?Mother: dece ased, foot problems.?Father: .?Son(s): alive.?Spouse: alive.?3 son(s) . .? * Social History:?Tobacco Use:?Tobacco Use/Smoking?Are you a:?nonsmoker ?Additional Findings: Tobacco Non-User?Current non-smoker ?Tobacco use other than smoking?Are you an other tobacco user??No ???Drugs/Alcohol:?Drugs?Have you used drugs other than those for medical reasons in the past 12 months??No ?Alcohol Screen?Did you have a drink containing alcohol in the past year??Yes ?How often did you have a drink containing alcohol in the past year??2 to 3 times a week (3 points) ?Points?3 ?Interpretation?Negative ???Miscellaneous:?Caffeine: yes, 3-5 cups per day. ?Children: yes, three. ?Exercise: no. ?Marital status: . 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 * Medications:?TakingCiclopiro x Olamine 0.77 % Cream 1 application to affected area Externally Twice a day to effected areas on feet Advil 200 MG Capsule 1 capsule as needed Orally every 6 hrs Atenolol 50 MG Tablet 1 tablet Orally Once a day Flomax 0.4 MG Capsule 1 capsule 30 minutes after the same meal each day Orally Once a day Norvasc 5 MG Tablet 1 tablet Orally Once a day Multivitamins Tablet as directed Orally Omeprazole 20 MG Capsule Delayed Release 1 capsule Orally Once a day Singulair 10 MG Tablet 1 tablet in the evening Orally Once a day ZyrTEC Allergy 10 MG Tablet 1 tablet Orally Once a day Taking Ciclopirox Olamine 0.77 % Cream 1 application to affected area Externally Twice a day to effected areas on feet Taking Advil 200 MG Capsule 1 capsule as needed Orally every 6 hrs Taking Atenolol 50 MG Tablet 1 tablet Orally Once a day Taking Flomax 0.4 MG Capsule 1 capsule 30 minutes after the same meal each day Orally Once a day Taking Norvasc 5 MG Tablet 1 tablet Orally Once a day Taking Multivitamins Tablet as directed Orally Taking Omeprazole 20 MG Capsule Delayed Release 1 capsule Orally Once a day Taking Singulair 10 MG Tablet 1 tablet in the evening Orally Once a day Taking ZyrTEC Allergy 10 MG Tablet 1 tablet Orally Once a day Not-Taking/PRNAlbuterol Xopenex HFA 45 MCG/ACT Aerosol PRN Inhalation PRN baby asprin as directed Keflex 500 MG Capsule 1 capsule Orally every 12 hrs Flonase 50 MCG/ACT Suspension 1 spray in each nostril Nasally Once a day Medication List reviewed and reconciled with the patientNot-Taking/PRN Albuterol Not-Taking/PRN Xopenex HFA 45 MCG/ACT Aerosol PRN Inhalation PRN Not-Taking/PRN baby asprin as directed Not-Taking/PRN Keflex 500 MG Capsule 1 capsule Orally every 12 hrs Not-Taking/PRN Flonase 50 MCG/ACT Suspension 1 spray in each nostril Nasally Once a day Medication List reviewed and reconciled with the patient * Allergies:?Albuterol: resp a rrestPercocet: hallucinationsMorphine: severe vomitingyes[Allergies Verified] Objective: * Vitals:?Ht:5ft9in, Wt:225, B OK:33.22, Shoe size:10, BP:120/76mm Hg, Ht-cm: 175.26 cm, Wt-k.06 kg. * Examination: ???General Examination: ?GENERAL APPEARANCE:?pleasant, alert, well nourished, well developed, well hydrated, with good attention to hygene/body habitus, and in no acute distress.?ORIENTED:?person,place, and time.?Neurological: ?SENSORY:? Neurological exam demonstrates reduced light touch sensation reduced sharp/dull pin prick discrimination reduced vibration sensation reduced proprioception sensation in a stocking fashion Right.?TINEL'S COMPRESSION:?Negative tarsal tunnel, willy pedis, and medial calcaneal nerves B/L.?BABINSKI REFLEX:?absent.?Dermatologic: ?SKIN FINDINGS:? Skin shows sign(s) of, erythema, scaling, in a moccasin fashion, no fissure(s) present, B/L.?Nails: ?NAILS are:?Elongated, overgrown, dystrophic, lytic, greater than 3mm thick, discolored and friable with crumbly malodorous subungual debris, with pain on palpation, 1-5 B/L.?Vascular: ?DP PULSES(B):?07/16, B/L.?PT PULSES(B):?06/15, B/L.?CAPILLARY FILL TIME:?3 secs. per digit, B/L.?TROPHIC CONDITION-TEXTURE/ELASTICITY/TURGOR/HAIR GROWTH(B):? decreased, B/L.?TEMPERTURE GRADIENT(C):?warm to cool, proximal to distal, B/L.?PIGMENTATION:?normal, B/L.?EDEMA(C):?no edema.?TELANGECTASIA:? present.?VARICOSITIES:? present, moderate, nonpainful, B/L.?Orthopedic: ?MUSCLE STRENGTH:?5/5 all groups in a symmetrical fashion , B/L.?GAIT ABNORMALITY:?pronated, abducted, B/L.?DIGITAL DEFORMITIES:? Digital contracture t6 is rigid and flexible hts t7.? Assessment: * Assessment: 1.?Tinea pedis of both feet - B35.3???Specify :Acute problem, Uncomplicated (3),Rx drug management (4)???2.?Tinea unguium - B35.1 (Primary)???3.?Pain in right toe(s) - M79.674???4.?Pain in left toe(s) - M79.675??? Plan: * Treatment: 2.?Tinea pedis of both feet? Start Ciclopirox Olamine Cream, 0.77 %, 1 application, Externally, Twice a day to skin of feet including between the toes, 30 days, 60, Refills 2.?? * Procedures:?Debride Nail 6-10:?Nail debridement?Performance of this nail treatment by a nonprofessional would put this patients foot and overall health at risk. Therefore, debridement to affected nail(s), as described in exam, was performed extensively to reduce/remove overall nail length, girth, thickness, subungual debris, and necrotic tissue, by manual and/or electrical means through the use of a nail nipper and/or dremel-type concrete wall grinder operator, to a more viable healthy nail plate or bed tissue 6-10. Silver nitrate used for any petechial bleeding as necessary. Definitive antifungal treatment options have been reviewed and discussed with the patient. The patient chooses, no pharmaceutical tx - 99735.? * Procedure Codes:?01559 DEBRI DE NAIL, 6 OR MORE * Preventive Medicine:? ??Counseling:?Discussion:?-13: Office or other [...] have encouraged the patient to call the office.?Tinea Pedis:?The patient was counseled on the diagnosis, potential etiologies, and treatment options for their skin condition. We discussed the risks and benefits of each option from performing no treatment, to utilizing OTC topical skin creams, prescription topical creams, customized compounded topical medications, and, if necessary, to utilize oral antifungal therapy. We discussed the advantages and disadvantages of each possible treatment and importance for adherence to all the recommended therapies for optimum success and avoid potential complications such as open sore/infection/possible hospitalization. We discussed the potential effectiveness of each topical preparation as well as each ones possible side effects and/or patient medication interactions if oral therapy is selected. Patient questions re: the advantages and disadvantages of each treatment choice, medication use/dosage, successful outcomes, and application consistency were reviewed and the patient verbalized that all answers were clearly understood. The patient was told they can help alleviate symptoms by utilizing moisture absorbant innersoles with activated charcoal and baking soda, applying antifungal sprays daily, aerating toe web spaces at night by putting cotton or lambs wool between the toes, alternating shoe gear daily if possible so they can dry out, changing socks at least once during the day, wearing well-ventilated shoes or sandals. The patient has decided to apply antifungal skin creams to their feet as directed. Rx was sent to their pharmacy at the time of visit.? * Follow Up:?3 Months * Images: * Sign off status: Completed true * Provider:?Brielle Russo DPM Date:?06/29/2023 Generated for Ashtyn agudelo/Khurram/Mychalitting on:?08/12/2024 09:17 AM EST History and Physical Notes * HPI (History of Present Illness) Category Sub-Category Detail Notes Category Not es Painful Nails Pt States Last PCP Visit: Date:: 08/15/2023 Skin problems Nature: scaling , redness, itching Location: B/L Duration: several days Course: worse Misc: states he was told h e was prescribed cream last visit however did not go to his pharmacy Examination Category Sub-Category Detail Notes Category Not es Neurological SENSORY: Neurological exa m demonstrates reduced light touch sensation reduced sharp/dull pin prick discrimination reduced vibration sensation reduced proprioception sensation in a stocking fashion Right BABINSKI REFLEX: absent TINEL'S COMPRESSION: Negative tarsal zoltan wan, willy pedis, and medial calcaneal nerves B/L Dermatologic SKIN FINDINGS: Skin shows sign( s) of, erythema, scaling, in a moccasin fashion, no fissure(s) present, B/L Orthopedic GAIT ABNORMALITY: pronated, abducted, B/L DIGITAL [...] PULSES (B): 2/4, B/L PT PULSES (B): 1/4, B/L CAPILLARY FILL TIME: 3 secs. per digit, B/L TEMPERTURE GRADIENT (C): warm to cool, p roximal to distal, B/L TROPHIC CONDITION-TEXTURE/ELASTICITY/TURGOR/HAIR GROWTH (B): decreased, B/L EDEMA (C): no edema TELANGECTASIA: present VARICOSITIES: present, moderate, n onpainful, B/L PIGMENTATION: normal, B/L Nails NAILS are: Elongated, overg rown, dystrophic, lytic, greater than 3mm thick, discolored and friable with crumbly malodorous subungual debris, with pain on palpation, 1-5 B/L
--- OUTSIDE RECORDS SUMMARY | 2024-08-12 09:18 | XMS_ITS | Patient Health Record ---
Author Organization [facility] Address [address] [place] [address] Care Team Providers Care Metal Sprayer Protective Coating Name Role Phone Savi DUNLAP, Melina Murray Primary Care Provider Un available Brielle Russo Unavailable [phone] Eduar Watson Unavailable [phone] Allergies Allergen (clinical drug ingredient) Drug/Non Drug Allergy documented on EMR Reaction Allergy Type Onset Date Status albuterol Albuterol resp arrest Drug Allergy Activ e acetaminophen / oxycodone Percocet hallucinations Drug Allergy Active morphine Morphine severe vomiting Drug Allergy A ctive Reason For Referral No Information Medications Medication SIG (Take, Route, Frequency, Duration) Notes Start Date End Date Status Advil 200 MG 1 capsule as needed Orally every 6 hrs 01/31/2013 Active Keflex 500 MG 1 capsule Orally iris ry 12 hrs for 10 day(s) 01/25/2018 Not-Taking Atenolol 50 MG 1 tablet Orally Once a day for 30 days Active Flonase 50 MCG/ACT 1 spray in each nost ril Nasally Once a day for 30 day(s) Not-Taking Xopenex HFA 45 MCG/ACT PRN Inhalation PRN Not-Taking Ciclopirox Olamine 0.77 % 1 application to affected area Externally Twice a day to effected areas on feet for 30 days Active baby asprin as directed Not-Ta mckenna Multivitamins as directed Orally Active Omeprazole 20 MG 1 capsule Orally Onc e a day for 30 day(s) Active Flomax 0.4 MG 1 capsule 30 minutes after the same meal each day Orally Once a day for 30 day(s) Active Ciclopirox Olamine 0.77 % 1 application Externally Twice a day to skin of feet including between the toes for 30 days Active Norvasc 5 MG 1 tablet Orally Once a day for 30 day(s) Active ZyrTEC Allergy 10 MG 1 tablet Orally Onc e a day for 30 day(s) Active Albuterol Not-Taking Singulair 10 MG 1 tablet in the even ing Orally Once a day for 30 day(s) Active Immunizations Vaccine Route Administration Date Status Comme nts COVID-19 Moderna Vaccine Unknown 04/25/2022 Administered 1st 07/09/20 4th 2021 2nd 08/09/20 3rd 03/21/21 Influenza Unknown 04/13/2022 Administered Social History Tobacco Use: Social History Observation [...] Are you an other tobacco user? No Problems Problem Type SNOMED Code ICD Code Onset Dates Problem Status W/U Status Risk Notes Problem Localized, primary osteoarthritis of the ankle and/or foot (320822577) Primary osteoarthriti s, right ankle and foot (M19.071) Active confirmed Problem Non-pressure chronic ulcer of other part of left foot limited to breakdown of skin (L97.521) Active confirmed Problem 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.511) Active confirmed Problem Acquired hammer toe of right foot (5557445727355278) Other hammer toe(s) (acquired), right foot (M20.41) Active confirmed Vital Signs Blood pressure diastolic 76 mm Hg 04/29/2024 Height 5ft9in in 04/29/2024 Blood pressure systolic 120 mm Hg 04/29/2024 Weight 225 lbs 04/29/2024 BMI 33.22 kg/m2 04/29/2024 Procedures Procedure Date Ordered Date Performed Result Body Sit e 33027-BPYBCXK NAIL, 6 OR MORE 04/29/2024 N/A Encounters Encounter Location Date Provider Diagnosis [facility] [place] [address] [place] [address] 10/25/2023 Eduar Watson Other hammer toe(s) (acquired), right foot M20.41 ; Tinea unguium B35.1 ; Pain in right toe(s) M79.674 ; Pain in left toe(s) M79.675 ; Ingrowing nail L60.0 and Tinea pedis B35.[address] [address] 01/25/2024 Eduar Watson Other hammer toe(s) (acquired), right foot M20.41 ; Tinea unguium B35.1 ; Pain in right toe(s) M79.674 ; Pain in left toe(s) M79.675 ; Ingrowing nail L60.0 and Tinea pedis B35.[address] [address] 04/29/2024 Brielle Russo Tinea pedis of both feet B35.3 ; Tinea unguium B35.1 ; Pain in right toe(s) M79.674 and Pain in left toe(s) M79.675 Assessments Encounter Date Diagnosis (ICD Code) Assessment Notes Treatment Notes Treatment Clinical Notes Section Notes 10/25/2023 Other hammer toe(s) (acquired), right foot (ICD-10 - M20.41) 01/25/2024 Other hammer toe(s) (acquired), right foot (ICD-10 - M20.41) 04/29/2024 Tinea pedis of both feet (ICD-10 - B35.3) 04/29/2024 Tinea unguium (ICD-10 - B35.1) 01/25/2024 Tinea unguium (ICD-10 - B35.1) 10/25/2023 Tinea unguium (ICD-10 - B35.1) 10/25/2023 Pain in right toe(s) (ICD-10 - M79.674) 04/29/2024 Pain in right toe(s) (ICD-10 - M79.674) 01/25/2024 Pain in right toe(s) (ICD-10 - M79.674) 01/25/2024 Pain in left toe(s) (ICD-10 - M79.675) 04/29/2024 Pain in left toe(s) (ICD-10 - M79.675) 10/25/2023 Pain in left toe(s) (ICD-10 - M79.675) 10/25/2023 Ingrowing nail (ICD-10 - L60.0) 01/25/2024 Ingrowing nail (ICD-10 - L60.0) 10/25/2023 Tinea pedis (ICD-10 - B35.3) 01/25/2024 Tinea pedis (ICD-10 - B35.3) Plan Of Treatment Pending Test Test Name Order Date X ray : Foot, left 3V 09/08/2021 X ray : Foot, right 3V 12/30/2022 X ray : Foot, right 3V 12/14/2016 X ray : Foot, right 3V 09/08/2021 74030-UEVXCCW NAIL, 6 OR MORE 12/14/2016 92178-WKZLIAC NAIL, 6 OR MORE 03/01/2017 36487-VZNXEGY NAIL, 6 OR MORE 05/31/2017 87779-WJSVBRT NAIL, 6 OR MORE 08/30/2017 59833-EMOWENA NAIL, 6 OR MORE 11/29/2017 31838-ALHIBOZ NAIL, 6 OR MORE 04/29/2024 34636-ZSSLINJ NAIL, 6 OR MORE 05/01/2018 37172-MVICTKX NAIL, 6 OR MORE 11/24/2014 58805-KAQNBGX NAIL, 6 OR MORE 02/25/2015 28990-UMQKUSU NAIL, 6 OR MORE 06/01/2015 11576-WEEHJAY NAIL, 6 OR MORE 08/31/2015 94278-BOQPNYN NAIL, 6 OR MORE 11/30/2015 81998-DDHJEYP NAIL, 6 OR MORE 03/02/2016 44722-EKPBLLY NAIL, 6 OR MORE 06/20/2016 31401-UYMKCAO NAIL, 6 OR MORE 09/14/2016 19969-IBDCCVP NAIL, 6 OR MORE 01/31/2013 35932-MDOHYDJ NAIL, 6 OR MORE 08/12/2013 04784-PXKKNIX NAIL, 6 OR MORE 10/11/2013 75735-IHAHBXN NAIL, 6 OR MORE 02/24/2014 84620-ESGBLZM NAIL, 6 OR MORE 05/26/2014 51701-EIHBTPO NAIL, 6 OR MORE 08/25/2014 40586-Wtdo Destruction, 06-2508/25/2014 66610-Gugp Destruction, 06-2507/04/2014 83828-Rxzv Destruction, 06-2510/06/2014 71125-Ulfv Destruction, 06-2505/26/2014 15130-Gdzd Destruction, 06-2502/24/2014 28142-Xziz Destruction, 06-2510/11/2013 85771-Fhmk Destruction, 06-2509/11/2013 08026-Frkv Destruction, 06-2507/15/2013 55649-Awum Destruction, 06-2508/12/2013 92865-Fgdx Destruction, 06-2502/25/2015 89917-Yduf Destruction, 06-2501/08/2015 87112-Vtelvjql Plate 11/24/2014 42063-Kefpvcpa Plate 05/27/2013 45588-Zptqzehy Plate 02/24/2014 24836-Qfxnobcf Plate 05/26/2014 69586-Pujdfcmd Plate 08/25/2014 49371- Nail Unit Biopsy 01/25/2018 Next Appt Details Provider Name:Brielle Meadows turner, 09/16/2024 10:15:00 AM, [address] [facility], [place], [address], Insurance Providers Payer Name Payer Address Payer Phone Subscriber Number Group Number Insured Name Patient Relationship to Insured Coverage Start Date Coverage End Date Medicare National [employer]t [employer] [address] [place] [address] [id number] Law Levi Self - patient is the insured [employer] [address] [place] [address] [id number] Law Levi Self - patient is the insured Medical (General) History Medical History History ICD Code Arthritis asthma back, hip, knee pain diverticulosis measles joint implants/screws transfusions Surgical History Surgery Date(Month/Year) knee surgery 06/19, 03/20 carpal tunnel surgery/ bilat tonsillectomy cardiac catheterization 07/25 gall bladder 03/1986 laser vein procedure 05/2016 back surgery 07/12/2019,04/07/21 carpal tunnel surgery 07/12/2019 vein sx left leg Tooth extraction 08/05/2021 neck mass surgery 03/18/2022 L knee replacement 05/2023 L knee surgery 06/2023 Hospitalization History Reason Date(Month/Year) PCP /[facility] ER - ear wax/Tooth abscess 07/29 [facility]- [facility] right leg 12/02/2019
--- OUTSIDE RECORDS SUMMARY | 2024-08-12 09:18 | XMS_ITS ---
Author Organization [facility] Address [address] [place] [address] Care Team Providers Care Residential Lawn Specialist Name Role Phone Savi DUNLAP, Melina Murray Primary Care Provider Un available RussoSusan schumacherine Unavailable [phone] Eduar Watson Unavailable [phone] Allergies Allergen (clinical drug ingredient) Drug/Non Drug [...] Duration) Notes Start Date End Date Status Omeprazole 20 MG 1 capsule Orally Onc e a day for 30 day(s) Active Multivitamins as directed Orally Active Norvasc 5 MG 1 tablet Orally Once a day for 30 day(s) Active ZyrTEC Allergy 10 MG 1 tablet Orally Onc e a day for 30 day(s) Active Singulair 10 MG 1 tablet in the even ing Orally Once a day for 30 day(s) Active Flomax 0.4 MG 1 capsule 30 minutes after the same meal each day Orally Once a day for 30 day(s) Active Flonase 50 MCG/ACT 1 spray in each nost ril Nasally Once a day for 30 day(s) Not-Taking Atenolol 25 MG 1 tablet Orally Once a day for 30 day(s) Active Advil 200 MG 1 capsule as needed Orally every 6 hrs 01/31/2013 Active Ciclopirox Olamine 0.77 % 1 application to affected area Externally Twice a day to effected areas on feet for 30 days Active Keflex 500 MG 1 capsule Orally iris ry 12 hrs for 10 day(s) 01/25/2018 Not-Taking baby asprin as directed Not-Ta mckenna Xopenex HFA 45 MCG/ACT PRN Inhalation PRN Not-Taking Albuterol Not-Taking Social History Tobacco Use: Social [...] other tobacco user? No Vital Signs Height 5ft 9in in 10/25/2023 Weight 220 lbs 10/25/2023 BMI 32.48 kg/m2 10/25/2023 Encounters Encounter Location Date Provider Diagnosis [facility] [address] [address] 10/25/2023 Eduar Watson Other hammer toe(s) (acquired), right foot M20.41 ; Tinea unguium B35.1 ; Pain in right toe(s) M79.674 ; Pain in left toe(s) M79.675 ; Ingrowing nail L60.0 and Tinea pedis B35.3 Assessments Encounter Date Diagnosis (ICD Code) Assessment Notes Treatment Notes Treatment Clinical Notes Section Notes 10/25/2023 Other hammer toe(s) (acquired), right foot (ICD-10 - M20.41) 10/25/2023 Tinea unguium (ICD-10 - B35.1) 10/25/2023 Pain in right toe(s) (ICD-10 - M79.674) 10/25/2023 Pain in left toe(s) (ICD-10 - M79.675) 10/25/2023 Ingrowing nail (ICD-10 - L60.0) 10/25/2023 Tinea pedis (ICD-10 - B35.3) Plan Of Treatment Medication Medication Name Sig Start Date Stop Date Notes Ciclopirox Olamine 0.77 % 1 application to affected area Externally Twice a day to effected areas on feet for 30 days Next Appt Details Follow Up: 3 Months, Reason: Provider Name:Brielle Meadows turner, 09/16/2024 10:15:00 AM, [address] [place], [address], Procedure Notes * Category Sub-Category Detail Notes [...] as necessary. Patient chooses, no pharmaceutical tx (61059) Progress Notes * Levi PEPE LDOB:1950 ( 73 yo M)Acc No.[id number]:10/25/2023 Progress Note Patient:?Levi Pepe Provider:?Eduar Watson DPM :1950???Age:73 Y???Sex:Male Fer e:10/25/2023 Address:[address] [place] [address] Pcp:Art Moya Subjective: * Chief Complaints: * ??? Painful nail(s) aggrevat ed by shoes and causing difficulty standing/walking. * HPI: ???Painful Nails:?Pt States Last PCP Visit:?Date:?08/15/2023 ???Foot Pain:?Nature:?numbness.?Location:?Top, LEFT, Forefoot, Midfoot.?Onset:?lbp.?Toe pain:?Nature:?aching, tenderness, stiffness.?Location:?2nd toe, 3rd toe, Right foot.?Duration:?several months.?Onset/Cause:?unknown.?Aggrevated by:?shoes, any pressure.?Treatments:?change in shoes.?Severity/Quality:?moderate.?Misc:?pt had left knee replacement at [facility] 05/23/23--compliacated by tendon and quad muscle [...] knee surgery 06/2023 * Hospitalization/Major Diagno stic [place] - ear wax/Tooth abscess 07/29/2021 * [...] cups per day. ?Children: yes, three. ?Exercise: yes, walking. ?Marital status: . 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 * Medications:?TakingAdvil 200 MG Capsule 1 capsule as needed [...] MG Tablet 1 tablet Orally Once a dayCiclopirox Olamine 0.77 % Cream 1 application to [...] Twice a day to effected areas on feetNot-Taking/PRNAlbuterol Xopenex HFA 45 MCG/ACT Aerosol PRN Inhalation [...] hallucinationsMorphine: severe vomitingyes[Allergies Verified] Objective: * Vitals:?Ht: 5ft 9in, Wt:220, BMI:32.48, Shoe size:10. * Examination: ???General Examination: ?GENERAL APPEARANCE:?pleasant, alert, [...] as necessary. Patient chooses, no pharmaceutical tx (17403).? * Procedure Codes:?61858 DEBRI DE NAIL, 6 OR MORE, Modifiers: [...] Date:? 024 Generated for Ashtyn agudelo/Khurram/Regine on:?08/12/2024 09:17 AM EST History and Physical Notes * HPI (History of Present Illness) Category Sub-Category Detail Notes Category Not es Toe pain Nature: aching, tenderness, stiffnes s Location: 2nd toe, 3rd toe, Ri ght foot Duration: several months Onset/Cause: unknown Aggravated by: shoes, any pressure Treatments: change in shoes Severity/Quality: moderate Misc: pt had left knee rep lacement at [facility] 05/23/23--compliacated by tendon and quad muscle [...]
== END ==
LOC: HO.CARD 08:46
PROVIDERS: PCP Internal Medicine; Visit Provider Nurse Practitioner Family
DX: I49.3 Ventricular premature depolarization (principal)
CPT/HCPCS: 93242

== ENCOUNTER → 2024-08-12 08:50 | Outpatient (BNV) | payer MEDICARE, SELFPAY | PROVIDERS: PCP Internal Medicine; Visit Provider Internal Medicine | DX: I47.10 Supraventricular tachycardia, unspecified (principal) | CPT/HCPCS: 93244 ==

== ENCOUNTER 2024-08-15 10:39 | Outpatient (AMB) | payer MEDICARE, SELFPAY ==
--- NOTE | 2024-08-15 10:48 | AM.OFFVISMDC ---
Intake Vital Signs 08/15/24 10:49 Height 5 ft 9 in Weight 242 lb BMI 35.7 BP 130/80 Blood Pressure Location Lt brachial Position Sitting Respiration 17 Pulse 63 Pulse Source Pulse Oximeter Temp 98.0 F Temp Source Oral Pulse Oximetry (%) 95 Oxygen Delivery Method Room Air Intake Visit Reasons: SWV G0439 Intake Note: Pt is here today for his SWV: last colonoscopy 03/05/24 Allergies morphine [Morphine] Allergy (Severe, Verified 08/15/24 11:26) VOMITING, gi upset, hallucinations, vomiting albuterol Allergy (Verified 08/15/24 11:26) Unknown Medication List - Last Reconciled 08/15/24 by Melina Hou MD amlodipine 5 mg PO BEDTIME atenolol 50 mg PO DAILY dutasteride 0.5 mg PO BEDTIME montelukast 10 mg PO BEDTIME multivitamin 1 tab PO DAILY omeprazole 20 mg PO DAILY tamsulosin 0.8 mg PO BEDTIME HPI SWV G0439 HPI Details SWV ? 74 year old male presents for his subsequent annual wellness visit. He had left total knee arthroplasty 04/15/2008, underwent revision left TKA to hinged knee replacement 05/23/2024, complicated by medial arthrotomy tear June 2023 for which he underwent repair of medial arthrotomy 07/04/[address] Rishi Craig at [facility] in [place] , s/p physical therapy.? Now ambulatory without any assistance He has mild intermittent asthma currently stable and controlled only on montelukast, and has obstructive sleep apnea currently compliant with CPAP, followed by Dr. Fenton. He sees a urologist in [place] for benign prostatic hyperplasia currently on dutasteride and tamsulosin. He has hypertension currently stable and controlled on atenolol and amlodipine. Had his fasting lipid panel and fasting blood sugar checked 10/26/2023 both of which came back with normal findings. He had a colonoscopy done 03/05/[address] Wolfe with 1 tubular adenoma and 1 hyperplastic polyp removed, due for repeat colonoscopy in 2028. He is up-to-date with his with his influenza vaccine, and pneumonia vaccination, received RSV vaccine 02/27/2023, and is up-to-date with his shingles vaccination. ? Medical / Social History Reviewed? Past Medical History ?Yes . ? [place] of Care / Care Team list updated ?Yes . ? Surgical/Hospitalization History ?Yes . ? Current Medications (including OTC and supplements) ?Yes . ? Family History ?Yes . ? Tobacco Control form ?Yes . ? AUDIT-C (Alcohol use) form ?Yes . ? Illicit drug use in Social History ?Yes . ? Current diagnosis of depression? ?No ? Appropriate PHQ2/PHQ9 completed ?Yes . ? Data entered by ?[employer]ver and reviewed by provider ? Fall Risk ? Fall History? Have you had any falls with injury in the past year? ?No . ? Have you had two or more falls in the past year? ?No . ? Fall Risk Assessment: ?No falls in the past year . ? HRA filled out by the patient, reviewed by Provider and scanned. ?SWV ? Balance? Romberg negative ? Tandem walk ?yes ? Walk and Turn ?Yes . ? Rise from sit to stand ?Yes . ?Vision? Corrective lens ?Yes ? Vision screen ? Up-to-date, sees Dr. Jacob ?Hearing? Whisper test ?fail, even with hearing aids in place ?Written Plan?Completed. See Patient Documents.? PFSH Medical History Inguinal hernia GERD (gastroesophageal reflux disease) Anemia Hx of adenomatous polyp of colon Impaired fasting glucose Skin lesion of left ear Degenerative joint disease (DJD) of lumbar spine T12 compression fracture Mild intermittent asthma in adult without complication Environmental and seasonal allergies SARIKA on CPAP Essential hypertension Benign prostatic hyperplasia Surgical History History of right inguinal hernia repair (05/06/24) History of back surgery History of total left knee replacement History of excision of mass (03/18/22) History of lumbar spinal fusion Hx of cholecystectomy History of knee surgery Family History Father CAD (coronary artery disease) HTN (hypertension) CVD (cardiovascular disease) Mother Medical history non-contributory Social History Housing: House Are you a primary healthcare insurance sales agent to a significant other at home: No Do you presently have visiting nurse or other home services: No Alcohol intake: current Alcohol intake frequency: 0-2 drinks per day Patient Tobacco Use Status: Never used Tobacco e-Cigarette/Vaping Use: Never Used Second Hand Smoke Exposure: No Current occupational status: retired Cognitive needs: No Hearing needs: Yes Vision needs: Yes Questionnaire Medicare Wellness Checkup [age] What gender do you identify with?: male During the past 4 weeks, how much have you been bothered by emotional problems such as feeling anxious, depressed, irritable, sad or downhearted, and blue?: not at all During the past 4 weeks, has your physical & emotional health limited your social activities with family, friends, neighbors, or groups?: not at all During the past 4 weeks, how much bodily pain have you generally had?: very mild pain During the past 4 weeks, was someone available to help you if you needed & wanted help?: yes, as much as I wanted During the past 4 weeks, what was the hardest physical activity you could do for at least 2 minutes?: moderate Can you get to places out of walking distance without help? (For eg., can you travel alone on buses, taxis or drive your car?): Yes Can you go shopping for groceries or clothes without someone's help?: Yes Can you prepare your own meals?: Yes Can you do your housework without help?: Yes Because of any health problems, do you need the help of another person with your personal care needs such as eating, bathing, dressing or getting around the house?: No Can you handle your own money without help?: Yes During the past 4 weeks, how would you rate your health in general?: very good During the past 4 weeks how have things been going for you?: very well; could hardly better Are you having difficulties driving your car?: no Do you always fasten your seat belt when you are in a car?: yes, usually During past 4 weeks, have you been bothered by the following: never: Falling or dizzy when standing up, Sexual problems?, Trouble eating well?, Teeth or denture problems?, Problems using the telephone? and Tiredness or fatigue? Have you fallen 2 or more times in the past year?: No Are you afraid of falling?: No Are you a smoker?: no During the past 4 weeks, how many drinks of wine, beer, or other alcoholic beverages did you have?: 1 drink or less per week Do you exercise for about 20 minutes 3 or more times a week?: no, I usually do not exercise this much Have you been given information to help with the following?: no: Hazards in your house that might hurt you? and no: Keeping track of your medications? How often do you have trouble taking medicines the way you have been told to take them?: I always take medicine as prescribed How confident are you that you can control & manage most of your health problems?: very confident What is your race?: White Mini Mental State Exam (MMSE) Orientation What is the (year) (season) (date) (day) (month)?: year (2024), season (Winter), date (08/15/24), day () and month (August) Where are we (state) (county) (town or city) (hospital) (floor)?: state ([place]), county ([place]), town or city ([place]) and hospital/clinic ([facility]) Score Score: 9 Activity of Daily Living Bathing - sponge bath, tub bath or shower: receives no assistance (gets in/out by self, if usual bathing means Dressing - getting clothes from closets & drawers, including inner/outer garments & fasteners.: gets clothes & gets completely dressed without help Toileting - going to the 'toilet room' for urine/bowel elimination & cleaning self/arranging clothes: goes to toilet room, cleans self, arranges clothes without help Transfer: moves in & out of bed and chair without help (may use support object) Continence: controls urination/bowel movements completely by self Feeding: feeds self without help Total Score: 0 Information obtained from: patient Using telephone: independent Traveling: independent Shopping: independent Preparing meals: independent Housework: independent Taking medicine: independent Managing money: independent PHQ-9 Over the last 2 weeks, how often have you been bothered by any of the following problems? 1. Little interest or pleasure in doing things: not at all 2. Feeling down, depressed, or hopeless: not at all 3. Trouble falling or staying asleep, or sleeping too much: not at all 4. Feeling tired or having little energy: not at all 5. Poor appetite or overeating: not at all 6. Feeling bad about yourself - or that you are a failure or have let yourself or your family down: not at all 7. Trouble concentrating on things, such as reading the newspaper or watching television: not at all 8. Moving or speaking so slowly that other people could have noticed. Or the opposite - being so fidgety or restless that you have been moving around a lot more than usual: not at all 9. Thoughts that you would be better off or of hurting yourself in some way: not at all Total score: 0 Depression Screening Interpretation: Negative Depression Screening Done: Yes 04529 - PHQ-9 Billing: Yes Source: Developed by Drs. Scott Alexander, Tawny Aguero, Gideon Gandara and colleagues, with an educational jac from [employer]. Physical Exam Vital Signs: Last Vital Signs Temp 98.0 F 08/15/24 10:49 Pulse 63 08/15/24 10:49 Resp 17 08/15/24 10:49 BP 130/80 08/15/24 10:49 Pulse Ox 95 08/15/24 10:49 Oxygen Delivery Method Room Air 08/15/24 10:49 BMI result Body Mass Index 35.7 Assessment & Plan Assessment & Plan (1) Encounter for subsequent annual wellness visit (AWV) in Medicare patient: Code(s): Z00.00 - Encounter for general adult medical examination without abnormal findings Plan: Medical wellness checklist reviewed, discussed with patient and updated. Copy given to patient (2) Benign prostatic hyperplasia: Code(s): N40.0 - Benign prostatic hyperplasia without lower urinary tract symptoms Qualifiers: Lower urinary tract symptom presence: symptoms absent Qualified Code(s): N40.0 - Benign prostatic hyperplasia without lower urinary tract symptoms Plan: Followed by Urology, on dutasteride and tamsulosin (3) Essential hypertension: Code(s): I10 - Essential (primary) hypertension Plan: Currently taking atenolol 50 mg daily and amlodipine 5 mg at bedtime (4) SARIKA on CPAP: Code(s): G47.33 - Obstructive sleep apnea (adult) (pediatric); Z99.89 - Dependence on other enabling machines and devices Plan: Compliant with CPAP (5) Environmental and seasonal allergies: Code(s): J30.89 - Other allergic rhinitis Plan: Currently on montelukast 10 mg daily (6) Mild intermittent asthma in adult without complication: Code(s): J45.20 - Mild intermittent asthma, uncomplicated Plan: Controlled without any medications Orders: Orders Lipid Panel 08/15/24 I10 - Essential (primary) hypertension, J30.89 - Other allergic rhinitis, J45.20 - Mild intermittent asthma, uncomplicated Aspartate Amino Transferase 08/15/24 I10 - Essential (primary) hypertension, J30.89 - Other allergic rhinitis, J45.20 - Mild intermittent asthma, uncomplicated Alanine Aminotransferase 08/15/24 I10 - Essential (primary) hypertension, J30.89 - Other allergic rhinitis, J45.20 - Mild intermittent asthma, uncomplicated Basic Metabolic Panel Fasting 08/15/24 I10 - Essential (primary) hypertension, J30.89 - Other allergic rhinitis, J45.20 - Mild intermittent asthma, uncomplicated Complete Blood Count Auto Diff 08/15/24 D64.9 - Anemia, unspecified, Z86.010 - Personal history of colon polyps Quality Reporting (2019) Depression/Bipolar (159/160/161/177) PHQ-9: Total score: 0 Coding Level of Care Code Medicare Subsequent (G0439) Diagnoses Encounter for subsequent annual wellness visit (AWV) in Medicare patient Z00.00 Benign prostatic hyperplasia without lower urinary tract symptoms N40.0 Lower urinary tract symptom presence: symptoms absent Essential hypertension I10 SARIKA on CPAP G47.33; Z99.89 Environmental and seasonal allergies J30.89 Mild intermittent asthma in adult without complication J45.20 Additional Codes PHQ-9 - 85458 - PHQ-9 Billing: Yes ([id number])
[2024-08-15 10:49] VITALS: BP 130/80; PULSE 63; RESP 17; TEMP 36.7; O2SAT 95; BMI 35.7
--- OUTSIDE RECORDS SUMMARY | 2024-08-15 12:45 | XMS_ITS ---
Author Organization [facility] Address [address] [place] [address] Care Team Providers Care Housing Liaison Name Role Phone Savi DUNLAP, Melina Murray Primary Care Provider Un available RussoSusan schumacherine Unavailable [phone] Eduar Watson Unavailable [phone] Allergies Allergen (clinical drug ingredient) Drug/Non Drug [...] 10/25/2023 Encounters Encounter Location Date Provider Diagnosis [facility] [address] [address] 10/25/2023 Eduar Watson Other hammer toe(s) (acquired), [...] Name:Brielle Meadows turner, 09/16/2024 10:15:00 AM, [address] [place], [address], Procedure Notes * Category Sub-Category Detail Notes [...] as necessary. Patient chooses, no pharmaceutical tx (58384) Progress Notes * Levi PEPE LDOB:1950 ( 73 yo M)Acc No.[id number]:10/25/2023 Progress Note Patient:?Levi Pepe Provider:?Eduar Watson DPM :1950???Age:73 Y???Sex:Male Fer e:10/25/2023 Address:[address] [place] [address] Pcp:Art Moya Subjective: * Chief Complaints: * ??? Painful nail(s) aggrevat ed by shoes and causing difficulty standing/walking. * HPI: ???Painful Nails:?Pt States Last PCP Visit:?Date:?08/15/2023 ???Foot Pain:?Nature:?numbness.?Location:?Top, LEFT, Forefoot, Midfoot.?Onset:?lbp.?Toe pain:?Nature:?aching, tenderness, stiffness.?Location:?2nd toe, 3rd toe, Right foot.?Duration:?several months.?Onset/Cause:?unknown.?Aggrevated by:?shoes, any pressure.?Treatments:?change in shoes.?Severity/Quality:?moderate.?Misc:?pt had left knee replacement at [facility] 05/23/23--compliacated by tendon and quad muscle rupture [...] knee surgery 06/2023 * Hospitalization/Major Diagno stic [place] [place] wax/Tooth abscess 07/29/2021 * [...] yes, walking. ?Marital status: . 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 * Medications:?TakingAdvil 200 MG Capsule 1 [...] as necessary. Patient chooses, no pharmaceutical tx (47005).? * Procedure Codes:?03400 DEBRI DE NAIL, 6 OR MORE, Modifiers: [...] DPM Date:? 024 Generated for Ashtyn agudelo/Khurram/Regine on:?08/15/2024 12:44 PM EST History and Physical Notes * HPI (History of Present Illness) Category Sub-Category Detail Notes Category Not es Toe pain Nature: aching, tenderness, stiffnes s Location: 2nd toe, 3rd toe, Ri ght foot Duration: several months Onset/Cause: unknown Aggravated by: shoes, any pressure Treatments: change in shoes Severity/Quality: moderate Misc: pt had left knee rep lacement at [facility] 05/23/23--compliacated by tendon and quad muscle rupture [...]
--- OUTSIDE RECORDS SUMMARY | 2024-08-15 12:45 | XMS_ITS | Clinical Summary ---
Author Organization [facility] Address [id number] [place] [address] Care Team Providers Care Heating Element Builder Name Role Phone Melina Hou MD Primary Care Provider Social History Tobacco Use Types Packs/Day Years [...] age to complete this topic Care Teams Heating Element Builder Relationship Specialty Start Date End Date Melina Hou MD [address] [place] [address] PCP - General Internal Medicine 11/20/18
--- OUTSIDE RECORDS SUMMARY | 2024-08-15 12:45 | XMS_ITS ---
Author Organization [facility] Address [address] [place] [address] Care Team Providers Care Machine Repair Person Name Role Phone Savi DUNLAP, Melina Murray Primary Care Provider Un available Brielle Russo Unavailable [phone] Eduar Watson Unavailable [phone] Allergies Allergen (clinical drug ingredient) Drug/Non Drug [...] 024 Encounters Encounter Location Date Provider Diagnosis [facility] [place] [address] [place] [address] 01/25/2024 Eduar Watson Other hammer toe(s) (acquired), [...] Follow Up: 3 Months, Reason: Provider Name:Brielle Meaodws turner, 09/16/2024 10:15:00 AM, [address] [place], [address], Procedure Notes * Category Sub-Category Detail Notes [...] as necessary. Patient chooses, no pharmaceutical tx (57814) Progress Notes * Levi PEPE LDOB:1950 ( 73 yo M)Acc No.[id number]:01/25/2024 Progress Note Patient:?Levi Pepe Provider:?Eduar Watson DPM :1950???Age:73 Y???Sex:Male Fer e:01/25/2024 Address:[address] [place] [address] Pcp:Art Moya Subjective: * Chief Complaints: * ??? Painful nail(s) aggrevat ed by shoes and causing difficulty standing/walking. * HPI: ???Painful Nails:?Pt States Last PCP Visit:?Date:?08/15/2023 ???Foot Pain:?Nature:?numbness.?Location:?Top, LEFT, Forefoot, Midfoot.?Onset:?lbp.?Toe pain:?Nature:?aching, tenderness, stiffness.?Location:?2nd toe, 3rd toe, Right foot.?Duration:?several months.?Onset/Cause:?unknown.?Aggravated by:?shoes, any pressure.?Treatments:?change in shoes.?Severity/Quality:?moderate.?Misc:?pt had left knee replacement at [facility] 05/23/23--compliacated by tendon and quad muscle [...] knee surgery 06/2023 * Hospitalization/Major Diagno stic Procedure:[place] [place] 12/02/2019PCP /[facility] [place] - ear wax/Tooth abscess 07/29/2021 * Family History:?Mother: dece ased, foot problems.?Father: .?Son(s): alive.?Spouse: alive.?3 son(s) . .? * Social History:?Tobacco Use:?Tobacco Use/Smoking?Are you a:?nonsmoker ?Additional Findings: Tobacco Non-User?Current non-smoker ?Tobacco use other than smoking?Are you an other tobacco user??No ???Miscellaneous:?Caffeine: yes, 3-5 cups per day. ?Children: yes, three. ?no Exercise. ?Marital status: . 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 * Medications:?TakingCiclopiro x Olamine 0.77 % [...] as necessary. Patient chooses, no pharmaceutical tx (02704).? * Procedure Codes:?32296 DEBRI DE NAIL, 6 OR MORE, Modifiers: [...] Date:? 024 Generated for Ashtyn agudelo/Khurram/Regine on:?08/15/2024 12:45 PM EST History and Physical Notes * HPI (History of Present Illness) Category Sub-Category Detail Notes Category Not es Toe pain Nature: aching, tenderness, stiffnes s Location: 2nd toe, 3rd toe, Ri ght foot Duration: several months Onset/Cause: unknown Aggravated by: shoes, any pressure Treatments: change in shoes Severity/Quality: moderate Misc: pt had left knee rep lacement at [facility] 05/23/23--compliacated by tendon and quad muscle [...]
--- OUTSIDE RECORDS SUMMARY | 2024-08-15 12:45 | XMS_ITS ---
Author Organization [facility] Address [address] [place] [address] Care Team Providers Care Cement Sprayer Helper Name Role Phone Savi DUNLAP, Melina Murray Primary Care Provider Un available RussoBrielle Unavailable [phone] Allergies Allergen (clinical drug ingredient) Drug/Non Drug [...] Ordered Date Performed Result Body Sit e 29335-GJMWIOV NAIL, 6 OR MORE 04/29/2024 N/A Encounters Encounter Location Date Provider Diagnosis [facility] [address] [address] 04/29/2024 Brielle Russo Tinea pedis of both [...] days Pending Test Test Name Order Date 86204-MPJUILE NAIL, 6 OR MORE 04/29/2024 Next Appt Details Follow Up: 3 Months, Reason: Provider Name:Brielle Meadows turner, 09/16/2024 10:15:00 AM, [address] [place], [address], Procedure Notes * Category Sub-Category Detail Notes [...] use of a nail nipper and/or dremel-type crystal flat grinder, to a more viable healthy nail plate or bed tissue 6-10. Silver nitrate used for any petechial bleeding as necessary. Definitive antifungal treatment options have been reviewed and discussed with the patient. The patient chooses, no pharmaceutical tx - 51989 Progress Notes * Levi PEPE LDOB:1950 ( 73 yo M)Acc No.[id number]:04/29/2024 Progress Note Patient:?Levi PEPE Provider:?Brielle Russo DPM :1950???Age:73 Y???Sex:Male Fer e:04/29/2024 Address:[address] [place], [place] [id number] Pcp:Art Moya Subjective: * Chief Complaints: * [...] knee surgery 06/2023 * Hospitalization/Major Diagno stic Procedure:?[facility] [place] 12/02/2019PCP [place] [place] - ear wax/Tooth abscess 07/29/2021 * [...] ?Exercise: no. ?Marital status: . 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 * Medications:?TakingCiclopiro x Olamine [...] vomitingyes[Allergies Verified] Objective: * Vitals:?Ht:5ft9in, Wt:225, B DC:33.22, Shoe size:10, BP:120/76mm Hg, Ht-cm: 175.26 cm, [...] use of a nail nipper and/or dremel-type crystal flat grinder, to a more viable healthy nail plate or bed tissue 6-10. Silver nitrate used for any petechial bleeding as necessary. Definitive antifungal treatment options have been reviewed and discussed with the patient. The patient chooses, no pharmaceutical tx - 97930.? * Procedure Codes:?09840 DEBRI DE NAIL, 6 OR MORE * [...] Russo DPM Date:?06/29/2023 Generated for Ashtyn agudelo/Khurram/Mychalitting on:?08/15/2024 12:44 PM EST History and Physical [...]
--- OUTSIDE RECORDS SUMMARY | 2024-08-15 12:45 | XMS_ITS | Patient Health Record ---
Author Organization [facility] Address [address] [place] [address] Care Team Providers Care Back Strip Machine Operator Name Role Phone Savi DUNLAP, Melina Murray Primary Care Provider Un available Brielle Russo Unavailable [phone] Eduar Watson Unavailable [phone] Allergies Allergen (clinical drug ingredient) Drug/Non Drug [...] primary osteoarthritis of the ankle and/or foot (899012143) Primary osteoarthriti s, right ankle and foot (M19.071) Active confirmed Problem Non-pressure chronic ulcer of other part of left foot limited to breakdown of skin (L97.521) Active confirmed Problem 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.511) Active confirmed Problem Acquired hammer toe of right foot (6243110718918902) Other hammer toe(s) (acquired), right foot (M20.41) Active confirmed Vital Signs Blood pressure diastolic 76 mm Hg 04/29/2024 Height 5ft9in in 04/29/2024 Blood pressure systolic 120 mm Hg 04/29/2024 Weight 225 lbs 04/29/2024 BMI 33.22 kg/m2 04/29/2024 Procedures Procedure Date Ordered Date Performed Result Body Sit e 67305-CQKWZAZ NAIL, 6 OR MORE 04/29/2024 N/A Encounters Encounter Location Date Provider Diagnosis [facility] [address] [place] [address] 10/25/2023 Eduar Watson Other hammer toe(s) (acquired), right foot M20.41 ; Tinea unguium B35.1 ; Pain in right toe(s) M79.674 ; Pain in left toe(s) M79.675 ; Ingrowing nail L60.0 and Tinea pedis B35.[address] [address] 01/25/2024 Eduar Watson Other hammer toe(s) (acquired), right foot M20.41 ; Tinea unguium B35.1 ; Pain in right toe(s) M79.674 ; Pain in left toe(s) M79.675 ; Ingrowing nail L60.0 and Tinea pedis B35.[address] [address] 04/29/2024 Brielle Russo Tinea pedis of both [...] X ray : Foot, right 3V 09/08/2021 14284-ZDRTVNU NAIL, 6 OR MORE 12/14/2016 83106-OJYVIOU NAIL, 6 OR MORE 03/01/2017 51777-EOVLRPQ NAIL, 6 OR MORE 05/31/2017 18164-ODXVBFV NAIL, 6 OR MORE 08/30/2017 82101-ATHOMFY NAIL, 6 OR MORE 11/29/2017 16268-PVZPVYP NAIL, 6 OR MORE 04/29/2024 53348-BYKDUPN NAIL, 6 OR MORE 05/01/2018 60604-CFFNCRW NAIL, 6 OR MORE 11/24/2014 04848-WPVAKLX NAIL, 6 OR MORE 02/25/2015 67646-KDBQXBK NAIL, 6 OR MORE 06/01/2015 89765-NDNTEGX NAIL, 6 OR MORE 08/31/2015 33505-MOTSVHI NAIL, 6 OR MORE 11/30/2015 81488-URXYEEF NAIL, 6 OR MORE 03/02/2016 81442-DNVVGPP NAIL, 6 OR MORE 06/20/2016 67546-GFFUDJA NAIL, 6 OR MORE 09/14/2016 80592-DMWMIUY NAIL, 6 OR MORE 01/31/2013 15688-LXZZOOB NAIL, 6 OR MORE 08/12/2013 12264-JLJNFKI NAIL, 6 OR MORE 10/11/2013 40924-KYWRWGX NAIL, 6 OR MORE 02/24/2014 32364-LSAHLYJ NAIL, 6 OR MORE 05/26/2014 69510-FWYZOIF NAIL, 6 OR MORE 08/25/2014 14055-Yqtd Destruction, 06-2508/25/2014 68128-Bodb Destruction, 06-2507/04/2014 84720-Vxup Destruction, 06-2510/06/2014 65633-Xpxp Destruction, 06-2505/26/2014 78848-Itvt Destruction, 06-2502/24/2014 91005-Hoie Destruction, 06-2510/11/2013 46833-Ovrg Destruction, 06-2509/11/2013 23628-Nhjj Destruction, 06-2507/15/2013 60355-Bmcv Destruction, 06-2508/12/2013 90204-Grqv Destruction, 06-2502/25/2015 56417-Uqta Destruction, 06-2501/08/2015 35929-Kixcoubk Plate 11/24/2014 10361-Jhscwvxb Plate 05/27/2013 61313-Kgxwkzdc Plate 02/24/2014 72099-Tytauczp Plate 05/26/2014 54583-Iulupszy Plate 08/25/2014 49277- Nail Unit Biopsy 01/25/2018 Next Appt Details Provider Name:Brielle Meadows turner, 09/16/2024 10:15:00 AM, [address] [facility], [place], [address], Insurance Providers Payer Name Payer Address Payer Phone Subscriber Number Group Number Insured Name Patient Relationship to Insured Coverage Start Date Coverage End Date Medicare National Govt Svcs Inc [address] [place] [address] [id number] Law Levi Self - patient is the insured [employer] Blue [employer] [address] [place] [address] [id number] Law Levi Self - patient is the [...]
== END 2024-08-15 11:34 | disposition home or self-care (01) ==
PROVIDERS: PCP Internal Medicine; Visit Provider Internal Medicine
DX: Z00.00 Encounter for general adult medical examination without abnormal findings (principal); N40.0 Benign prostatic hyperplasia without lower urinary tract symptoms; I10 Essential (primary) hypertension; G47.33 Obstructive sleep apnea (adult) (pediatric); Z99.89 Dependence on other enabling machines and devices; J30.89 Other allergic rhinitis; J45.20 Mild intermittent asthma, uncomplicated

== ENCOUNTER → 2024-08-15 10:39 | Outpatient (BNVA) | payer MEDICARE, SELFPAY | PROVIDERS: PCP Internal Medicine; Visit Provider Internal Medicine | DX: Z00.00 Encounter for general adult medical examination without abnormal findings (principal); N40.0 Benign prostatic hyperplasia without lower urinary tract symptoms; I10 Essential (primary) hypertension; G47.33 Obstructive sleep apnea (adult) (pediatric); Z99.89 Dependence on other enabling machines and devices; J30.89 Other allergic rhinitis; J45.20 Mild intermittent asthma, uncomplicated | CPT/HCPCS: 96127 ==

== ENCOUNTER 2024-08-19 06:38 | Outpatient (REF) | payer MEDICARE, SELFPAY ==
--- OUTSIDE RECORDS SUMMARY | 2024-08-19 06:41 | XMS_ITS ---
Author Organization [facility] Address [address] [place] [address] Care Team Providers Care Auto Vinyl Top Installer Name Role Phone Savi DUNLAP, Melina Murray Primary Care Provider Un available RussoSusan schumacherine Unavailable [phone] Eduar Watson Unavailable [phone] Allergies Allergen (clinical drug ingredient) Drug/Non Drug [...] 10/25/2023 Encounters Encounter Location Date Provider Diagnosis [facility] [address] [address] 10/25/2023 Eduar Watson Other hammer toe(s) (acquired), [...] Name:Brielle Meadows turner, 09/16/2024 10:15:00 AM, [address] [place], [address], Procedure Notes * Category Sub-Category Detail Notes [...] as necessary. Patient chooses, no pharmaceutical tx (72312) Progress Notes * Levi PEPE LDOB:1950 ( 73 yo M)Acc No.[id number]:10/25/2023 Progress Note Patient:?Levi Pepe Provider:?Eduar Watson DPM :1950???Age:73 Y???Sex:Male Fer e:10/25/2023 Address:[address] [place] [address] Pcp:Art Moya Subjective: * Chief Complaints: * [...] knee surgery 06/2023 * Hospitalization/Major Diagno stic Procedure:?[facility] [place]- [place] right leg 12/02/2019PCP /[facility] - ear wax/Tooth abscess 07/29/2021 * [...] yes, walking. ?Marital status: . 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 * Medications:?TakingAdvil 200 MG [...] as necessary. Patient chooses, no pharmaceutical tx (02089).? * Procedure Codes:?22983 DEBRI DE NAIL, 6 OR MORE, Modifiers: [...] DPM Date:? 024 Generated for Ashtyn agudelo/Khurram/Regine on:?08/19/2024 06:40 AM EDT History and Physical Notes * HPI (History [...]
--- OUTSIDE RECORDS SUMMARY | 2024-08-19 06:41 | XMS_ITS ---
Author Organization [facility] Address [address] [place] [address] Care Team Providers Care Middle School Humanities Teacher Name Role Phone Savi DUNLAP, Melina Murray Primary Care Provider Un available RussoBrielle Unavailable [phone] Allergies Allergen (clinical drug ingredient) Drug/Non Drug [...] Ordered Date Performed Result Body Sit e 54092-CVVYOZI NAIL, 6 OR MORE 04/29/2024 N/A Encounters Encounter Location Date Provider Diagnosis [facility] [address] [address] 04/29/2024 Brielle Russo Tinea pedis of both [...] days Pending Test Test Name Order Date 54513-CEVLBDE NAIL, 6 OR MORE 04/29/2024 Next Appt Details Follow Up: 3 Months, Reason: Provider Name:Brielle Meadows turner, 09/16/2024 10:15:00 AM, [address] [place], [address], Procedure Notes * Category Sub-Category Detail Notes [...] use of a nail nipper and/or dremel-type burr grinder, to a more viable healthy nail plate or bed tissue 6-10. Silver nitrate used for any petechial bleeding as necessary. Definitive antifungal treatment options have been reviewed and discussed with the patient. The patient chooses, no pharmaceutical tx - 04229 Progress Notes * Levi PEPE LDOB:1950 ( 73 yo M)Acc No.[id number]:04/29/2024 Progress Note Patient:?Levi PEPE Provider:?Brielle Russo DPM :1950???Age:73 Y???Sex:Male Fer e:04/29/2024 Address:[address] [place], [place] [address] Pcp:Art Moya Subjective: * Chief Complaints: * [...] knee surgery 06/2023 * Hospitalization/Major Diagno stic [place] [place] [place] - ear wax/Tooth abscess 07/29/2021 * [...] ?Exercise: no. ?Marital status: . 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 * Medications:?TakingCiclopiro x Olamine 0.77 [...] vomitingyes[Allergies Verified] Objective: * Vitals:?Ht:5ft9in, Wt:225, B MN:33.22, Shoe size:10, BP:120/76mm Hg, Ht-cm: 175.26 cm, [...] use of a nail nipper and/or dremel-type burr grinder, to a more viable healthy nail plate or bed tissue 6-10. Silver nitrate used for any petechial bleeding as necessary. Definitive antifungal treatment options have been reviewed and discussed with the patient. The patient chooses, no pharmaceutical tx - 40917.? * Procedure Codes:?51607 DEBRI DE NAIL, 6 OR MORE * [...] Russo DPM Date:?06/29/2023 Generated for Ashtyn agudelo/Khurram/Mychalitting on:?08/19/2024 06:40 AM EDT History and Physical [...]
--- OUTSIDE RECORDS SUMMARY | 2024-08-19 06:41 | XMS_ITS | Patient Health Record ---
Author Organization [facility] Address [address] [place] [address] Care Team Providers Care Disc Jockey Name Role Phone Savi DUNLAP, Melina Murray Primary Care Provider Un available Brielle Russo Unavailable [phone] Eduar Watson Unavailable [phone] Allergies Allergen (clinical drug ingredient) Drug/Non Drug [...] primary osteoarthritis of the ankle and/or foot (134194383) Primary osteoarthriti s, right ankle and foot (M19.071) Active confirmed Problem Non-pressure chronic ulcer of other part of left foot limited to breakdown of skin (L97.521) Active confirmed Problem 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.511) Active confirmed Problem Acquired hammer toe of right foot (4114470513958791) Other hammer toe(s) (acquired), right foot (M20.41) Active confirmed Vital Signs Blood pressure diastolic 76 mm Hg 04/29/2024 Height 5ft9in in 04/29/2024 Blood pressure systolic 120 mm Hg 04/29/2024 Weight 225 lbs 04/29/2024 BMI 33.22 kg/m2 04/29/2024 Procedures Procedure Date Ordered Date Performed Result Body Sit e 65069-KDNVZNX NAIL, 6 OR MORE 04/29/2024 N/A Encounters Encounter Location Date Provider Diagnosis [facility] [place] [address] [place] [address] 10/25/2023 Eduar Watson Other hammer toe(s) (acquired), right foot M20.41 ; Tinea unguium B35.1 ; Pain in right toe(s) M79.674 ; Pain in left toe(s) M79.675 ; Ingrowing nail L60.0 and Tinea pedis B35.[address] [address] 01/25/2024 Eduar Watson Other hammer toe(s) (acquired), right foot M20.41 ; Tinea unguium B35.1 ; Pain in right toe(s) M79.674 ; Pain in left toe(s) M79.675 ; Ingrowing nail L60.0 and Tinea pedis B35.[address] [address] 04/29/2024 Brielle Russo Tinea pedis of both [...] X ray : Foot, right 3V 09/08/2021 97233-WMVTNQP NAIL, 6 OR MORE 12/14/2016 38190-XBYZZFD NAIL, 6 OR MORE 03/01/2017 51360-FUURTOS NAIL, 6 OR MORE 05/31/2017 69667-KXOBKNM NAIL, 6 OR MORE 08/30/2017 36102-ZNQIQWW NAIL, 6 OR MORE 11/29/2017 77863-KBSLYCL NAIL, 6 OR MORE 04/29/2024 52617-PDSQSSI NAIL, 6 OR MORE 05/01/2018 50288-GENGFBA NAIL, 6 OR MORE 11/24/2014 61810-VXWTAPU NAIL, 6 OR MORE 02/25/2015 55016-XXQJDRC NAIL, 6 OR MORE 06/01/2015 01218-NAGZPFK NAIL, 6 OR MORE 08/31/2015 26162-MYGHJOT NAIL, 6 OR MORE 11/30/2015 31510-IHGXZWH NAIL, 6 OR MORE 03/02/2016 53722-IUDOATK NAIL, 6 OR MORE 06/20/2016 69952-WGMKONB NAIL, 6 OR MORE 09/14/2016 34052-NNVTJGC NAIL, 6 OR MORE 01/31/2013 95004-TYEZMVD NAIL, 6 OR MORE 08/12/2013 84980-RJVNIEI NAIL, 6 OR MORE 10/11/2013 72710-TOUUGCZ NAIL, 6 OR MORE 02/24/2014 94331-QYDUFZQ NAIL, 6 OR MORE 05/26/2014 81896-LVYAOSN NAIL, 6 OR MORE 08/25/2014 48923-Kzgz Destruction, 06-2508/25/2014 53391-Vgdd Destruction, 06-2507/04/2014 38943-Oukb Destruction, 06-2510/06/2014 35302-Nlhi Destruction, 06-2505/26/2014 09908-Tvnk Destruction, 06-2502/24/2014 59991-Nmwt Destruction, 06-2510/11/2013 67102-Diwq Destruction, 06-2509/11/2013 24595-Etuf Destruction, 06-2507/15/2013 54592-Rtnj Destruction, 06-2508/12/2013 31599-Yjjr Destruction, 06-2502/25/2015 03332-Xalk Destruction, 06-2501/08/2015 73570-Jbrwmmjj Plate 11/24/2014 77847-Rdkltstt Plate 05/27/2013 16946-Rfparupf Plate 02/24/2014 12955-Gmfrcfcs Plate 05/26/2014 09974-Aadotjsv Plate 08/25/2014 41189- Nail Unit Biopsy 01/25/2018 Next Appt Details Provider Name:Brielle Meadows turner, 09/16/2024 10:15:00 AM, [address] [facility], [place], [address], Insurance Providers Payer Name Payer Address Payer Phone Subscriber Number Group Number Insured Name Patient Relationship to Insured Coverage Start Date Coverage End Date Medicare National Govt Svcs Inc [address] [place] [address] [id number] Law Levi Self - patient is the insured [employer] Blue Shield [address] [place] [address] [phone] [id number] Law Levi Self - patient is the [...]
--- OUTSIDE RECORDS SUMMARY | 2024-08-19 06:41 | XMS_ITS | Clinical Summary ---
Author Organization [facility] Address [address] [place] [address] Care Team Providers Care Energy Trading Analyst Name Role Phone Melina Hou MD Primary [...] age to complete this topic Care Teams Energy Trading Analyst Relationship Specialty Start Date End Date Melina Hou MD [address] [place] [address] PCP - General Internal Medicine 11/20/18
--- OUTSIDE RECORDS SUMMARY | 2024-08-19 06:41 | XMS_ITS ---
Author Organization [facility] Address [address] [place] [address] Care Team Providers Care Briquetter Operator Name Role Phone Savi DUNLAP, Melina Murray Primary Care Provider Un available Brielle Russo Unavailable [phone] Eduar Watson Unavailable [phone] Allergies Allergen (clinical drug ingredient) Drug/Non Drug [...] 024 Encounters Encounter Location Date Provider Diagnosis [facility] [address] [place] [address] 01/25/2024 Eduar Watson Other hammer toe(s) (acquired), [...] Name:Brielle Meadows turner, 09/16/2024 10:15:00 AM, [address] [place], [address], Procedure Notes * Category Sub-Category Detail Notes [...] as necessary. Patient chooses, no pharmaceutical tx (42764) Progress Notes * Levi PEPE LDOB:1950 ( 73 yo M)Acc No.[id number]:01/25/2024 Progress Note Patient:?Levi Pepe Provider:?Eduar Watson DPM :1950???Age:73 Y???Sex:Male Fer e:01/25/2024 Address:[address] [place] [address] Pcp:Art Moya Subjective: * Chief Complaints: * ??? Painful nail(s) aggrevat ed by shoes and causing difficulty standing/walking. * HPI: ???Painful Nails:?Pt States Last PCP Visit:?Date:?08/15/2023 ???Foot Pain:?Nature:?numbness.?Location:?Top, LEFT, Forefoot, Midfoot.?Onset:?lbp.?Toe pain:?Nature:?aching, tenderness, stiffness.?Location:?2nd toe, 3rd toe, Right foot.?Duration:?several months.?Onset/Cause:?unknown.?Aggravated by:?shoes, any pressure.?Treatments:?change in shoes.?Severity/Quality:?moderate.?Misc:?pt had left knee replacement at [facility] 05/23/23--compliacated by tendon and quad muscle [...] knee surgery 06/2023 * Hospitalization/Major Diagno stic [place] [place] [place] - ear wax/Tooth abscess 07/29/2021 * Family History:?Mother: dece ased, foot problems.?Father: .?Son(s): alive.?Spouse: alive.?3 son(s) . .? * Social History:?Tobacco Use:?Tobacco Use/Smoking?Are you a:?nonsmoker ?Additional Findings: Tobacco Non-User?Current non-smoker ?Tobacco use other than smoking?Are you an other tobacco user??No ???Miscellaneous:?Caffeine: yes, 3-5 cups per day. ?Children: yes, three. ?no Exercise. ?Marital status: . 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 * Medications:?TakingCiclopiro x Olamine 0.77 % [...] as necessary. Patient chooses, no pharmaceutical tx (43633).? * Procedure Codes:?09280 DEBRI DE NAIL, 6 OR MORE, Modifiers: [...] Date:? 024 Generated for Ashtyn agudelo/Khurram/Regine on:?08/19/2024 06:41 AM EDT History and Physical Notes * HPI (History of Present Illness) Category Sub-Category Detail Notes Category Not es Toe pain Nature: aching, tenderness, stiffnes s Location: 2nd toe, 3rd toe, Ri ght foot Duration: several months Onset/Cause: unknown Aggravated by: shoes, any pressure Treatments: change in shoes Severity/Quality: moderate Misc: pt had left knee rep lacement at [facility] 05/23/23--compliacated by tendon and quad muscle [...]
[2024-08-19 07:09] LABS: MANUAL DIFF FLAG NO
[2024-08-19 07:37] LABS: Basophils Percent Auto 0.4 % (0-2); Eosinophils Absolute Auto 0.1 X10*3/uL (0.0-0.4); Eosinophils Percent Auto 2.3 % (0-4); Hemoglobin 13.9 g/dl (14.0-18.0); Imm Gran Abs Auto 0.02 X10*3/uL (0.00-0.03); Imm Gran Pct Auto 0.4 % (0.0-0.4); Lymphocytes Absolute Auto 1.8 X10*3/uL (1.2-4.9); Lymphocytes Percent Auto 37.3 % (20-40); Mean Corpuscular HGB Conc 33.9 g/dl (31.0-36.0); Mean Corpuscular Hemoglobin 31.7 pg (27.0-33.0); Mean Corpuscular Volume 93.4 fL (80.0-98.0); Mean Platelet Volume 10.4 fL (9.4-12.4); Monocytes Absolute Auto 0.4 X10*3/uL (0.1-1.2); Monocytes Percent Auto 8.1 % (2-11); Neutrophils Absolute Auto 2.5 x10*3/uL (2.0-8.3); Neutrophils Percent Auto 51.5 % (45-73); Platelet Count 171 X10*3/uL (160-400); Red Blood Count 4.39 X10*6/uL (4.60-5.80); White Blood Count 4.8 X10*3/uL (4.8-10.8)
[2024-08-19 08:02] LABS: Alanine Aminotransferase 18 U/L (0-40); Anion Gap 10 (12-20); Aspartate Amino Transferase 19 U/L (5-37); Blood Urea Nitrogen 21 mg/dL (9-16); Calcium 8.9 mg/dL (8.4-10.2); Carbon Dioxide 27 mmol/L (22-29); Chloride 110 mmol/L (96-108); Cholesterol 137 mg/dL (<200); Estimated Glomerular Filt Rate > 60; Glucose Fasting 95 mg/dL (60-99); HDL Cholesterol 57 mg/dL (>40); LDL Cholesterol Calculated 58 mg/dL (<100); Sodium 143 mmol/L (135-145); Triglycerides 114 mg/dL (<150)
== END 2024-08-19 06:39 | disposition home or self-care (01) ==
LOC: HO.LAB 06:38
PROVIDERS: PCP Internal Medicine; Visit Provider Internal Medicine
DX: J45.20 Mild intermittent asthma, uncomplicated (principal); I10 Essential (primary) hypertension; J30.89 Other allergic rhinitis; D64.9 Anemia, unspecified; Z86.0100 Personal history of colon polyps, unspecified
CPT/HCPCS: 36415; 80048; 80061; 84450; 84460; 85025

== ENCOUNTER 2024-08-27 08:52 | Outpatient (AMB) | payer MEDICARE, SELFPAY ==
[2024-08-27 08:55] VITALS: BP 120/72; PULSE 82; BMI 36.1
--- NOTE | 2024-08-27 08:55 | MHC.OFFVIS ---
Vital Signs 08/27/24 08:55 Height 5 ft 9 in Weight 244 lb 11.41 oz BMI 36.1 BP 120/72 Blood Pressure Location Lt brachial Position Sitting Pulse 82 Intake Visit Reasons: 6 mth f/up Intake Note: 6 month follow-up feeling good Auricular Detoxification Specialist Required: No Allergies morphine [Morphine] Allergy (Severe, Verified 08/15/24 11:26) VOMITING, gi upset, hallucinations, vomiting albuterol Allergy (Verified 08/15/24 11:26) Unknown Medication List - Last Reconciled 08/27/24 by Alek Hernandez MD amlodipine 5 mg PO BEDTIME atenolol 50 mg PO DAILY dutasteride 0.5 mg PO BEDTIME montelukast 10 mg PO BEDTIME multivitamin 1 tab PO DAILY omeprazole 20 mg PO DAILY tamsulosin 0.8 mg PO BEDTIME HPI Comments Details: Levi comes for follow-up. Interestingly says since increasing his atenolol to 50 mg his symptoms of fatigue have improved. He does not feel any other symptoms. Denies any irregular heartbeat or prolonged palpitation occasionally feels fluttering in his chest with chest tightness but this is very random and seldom. He denies any exertional chest pain or shortness of breath. Takes all his medications. His most recent Holter monitor shows much improved burden of PVCs to 1.2% PFSH Medical History Inguinal hernia GERD (gastroesophageal reflux disease) Anemia Hx of adenomatous polyp of colon Impaired fasting glucose Skin lesion of left ear Degenerative joint disease (DJD) of lumbar spine T12 compression fracture Mild intermittent asthma in adult without complication Environmental and seasonal allergies SARIKA on CPAP Essential hypertension Benign prostatic hyperplasia Surgical History History of right inguinal hernia repair (05/06/24) History of back surgery History of total left knee replacement History of excision of mass (03/18/22) History of lumbar spinal fusion Hx of cholecystectomy History of knee surgery Family History Father CAD (coronary artery disease) HTN (hypertension) CVD (cardiovascular disease) Mother Medical history non-contributory Social History Housing: House Are you a primary care taker to a significant other at home: No Do you presently have visiting nurse or other home services: No Alcohol intake: current Alcohol intake frequency: 0-2 drinks per day Patient Tobacco Use Status: Never used Tobacco e-Cigarette/Vaping Use: Never Used Second Hand Smoke Exposure: No Current occupational status: retired Cognitive needs: No Hearing needs: Yes Vision needs: Yes Review of Systems Const Denies chills, Denies fatigue, Denies fever(s), Denies frequent falls, Denies weakness, Denies weight gain and Denies weight loss ENT Denies dizziness Card Denies chest pain, Denies leg edema, Denies lightheadedness, Denies palpitations, Denies dyspnea, Denies dyspnea on exertion, Denies orthopnea and Denies other (loss of consciousness) Resp Denies cough, Denies dyspnea and Denies dyspnea on exertion GI Denies hematochezia and Denies change in stool character Musc Denies abnormal gait, Denies muscle weakness, Denies numbness, Denies radiating pain into limb and Denies tingling Neuro Denies abnormal gait, Denies dizziness, Denies frequent falls, Denies numbness, Denies tingling and Denies weakness Endo Denies fatigue and Denies palpitations Physical Exam Vital Signs: Last Vital Signs Pulse 82 08/27/24 08:55 BP 120/72 08/27/24 08:55 BMI result Body Mass Index 36.1 Const General: cooperative, comfortable, no acute distress, alert, awake and well groomed Nutritional Appearance: obese Orientation/consciousness: patient oriented x3 Limitations: no limitations HEENT Head: Yes normocephalic and Yes atraumatic Neck Neck: Yes trachea midline, Yes supple and Yes no JVD Resp Effort & Inspection: normal respiratory effort Auscultation: clear to auscultation bilaterally Cardio Jugular venous distension: no JVD Palpation: normal PMI Rate: regular rate Rhythm: abnormal rhythm with ectopic beats Heart sounds: S1 normal heart sound present, S2 normal heart sound present, no click, no gallops and no murmurs GI Auscultation: normal bowel sounds Skin General skin exam: no rashes or lesions noted Neuro General: patient oriented x3 and no focal motor deficits Extrem General: Yes no clubbing, cyanosis or edema Assessment & Plan Assessment & Plan (1) PVCs (premature ventricular contractions): Code(s): I49.3 - Ventricular premature depolarization Category: Medical Plan: Multifocal PVCs without any obvious structural heart disease noted. He said his symptoms have improved with symptoms of exertional fatigue on increased atenolol dose. At this point time I would suggest to continue current atenolol dose. He has also cut down his caffeine intake significantly. Advised to avoid stimulants as well. He understands agrees. I do feel that his symptoms of PVCs were mostly fatigued due to frequent PVCs which have improved. Benign nature of isolated PVCs was discussed with him. He understands and agrees. (2) Essential hypertension: Code(s): I10 - Essential (primary) hypertension Category: Medical Plan: Hypertension which is currently well optimized on dual therapy with amlodipine atenolol. Continue the same. Low-salt diet was discussed advised to intermittently monitor blood pressure at home maintain a log. Goal blood pressure less than 130/84. Encouraged to increase activity level. Advised to call me with any new symptoms. Will follow up in the clinic in 1 year's time, sooner p.r.n.. Thank you for allowing me to partake in his care Coding Level of Care Code Est Pt Level 4 (93132) Complex EM visit Add On G2211 Diagnoses PVCs (premature ventricular contractions) I49.3 Essential hypertension I10
--- OUTSIDE RECORDS SUMMARY | 2024-08-27 09:21 | XMS_ITS ---
Author Organization [facility] Address [address] [place] [address] Care Team Providers Care Rehabilitation Engineer Name Role Phone Savi DUNLAP, Melina Murray Primary Care Provider Un available RussoSusan schumacherine Unavailable [phone] Eduar Watson Unavailable [phone] Allergies Allergen (clinical drug ingredient) Drug/Non Drug [...] 10/25/2023 Encounters Encounter Location Date Provider Diagnosis [facility] [address] [address] 10/25/2023 Eduar Watson Other hammer toe(s) (acquired), [...] Name:Brielle Meadows turner, 09/16/2024 10:15:00 AM, [address] [place], [address], Procedure Notes * Category Sub-Category Detail Notes [...] as necessary. Patient chooses, no pharmaceutical tx (21472) Progress Notes * Levi PEPE LDOB:1950 ( 73 yo M)Acc No.[id number]:10/25/2023 Progress Note Patient:?Levi Pepe Provider:?Eduar Watson DPM :1950???Age:73 Y???Sex:Male Fer e:10/25/2023 Address:[address] [place] [address] Pcp:Art Moya Subjective: * Chief Complaints: * ??? Painful nail(s) aggrevat ed by shoes and causing difficulty standing/walking. * HPI: ???Painful Nails:?Pt States Last PCP Visit:?Date:?08/15/2023 ???Foot Pain:?Nature:?numbness.?Location:?Top, LEFT, Forefoot, Midfoot.?Onset:?lbp.?Toe pain:?Nature:?aching, tenderness, stiffness.?Location:?2nd toe, 3rd toe, Right foot.?Duration:?several months.?Onset/Cause:?unknown.?Aggrevated by:?shoes, any pressure.?Treatments:?change in shoes.?Severity/Quality:?moderate.?Misc:?pt had left knee replacement at [facility] 05/23/23--compliacated by tendon and quad muscle [...] knee surgery 06/2023 * Hospitalization/Major Diagno stic Procedure:?[facility] [place]- [place]hes right leg 12/02/2019PCP /[facility] [place] [facility] - ear [...] yes, walking. ?Marital status: . 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 * Medications:?TakingAdvil 200 MG [...] as necessary. Patient chooses, no pharmaceutical tx (44677).? * Procedure Codes:?81872 DEBRI DE NAIL, 6 OR MORE, Modifiers: [...] DPM Date:? 024 Generated for Ashtyn agudelo/Khurram/Regine on:?08/27/2024 09:21 AM EDT History and Physical Notes * HPI (History of Present Illness) Category Sub-Category Detail Notes Category Not es Toe pain Nature: aching, tenderness, stiffnes s Location: 2nd toe, 3rd toe, Ri ght foot Duration: several months Onset/Cause: unknown Aggravated by: shoes, any pressure Treatments: change in shoes Severity/Quality: moderate Misc: pt had left knee rep lacement at [facility] 05/23/23--compliacated by tendon and quad muscle [...]
--- OUTSIDE RECORDS SUMMARY | 2024-08-27 09:21 | XMS_ITS ---
Author Organization [facility] Address [address] [place] [address] Care Team Providers Care Chlorobutadiene Scrubber Operator Name Role Phone Savi DUNLAP, Melina Murray Primary Care Provider Un available RussoBrielle Unavailable [phone] Allergies Allergen (clinical drug ingredient) Drug/Non Drug [...] Ordered Date Performed Result Body Sit e 27080-ZIWERJK NAIL, 6 OR MORE 04/29/2024 N/A Encounters Encounter Location Date Provider Diagnosis [facility] [address] [address] 04/29/2024 Brielle Russo Tinea pedis of both [...] days Pending Test Test Name Order Date 79962-TQVAGQN NAIL, 6 OR MORE 04/29/2024 Next Appt Details Follow Up: 3 Months, Reason: Provider Name:Brielle Meadows turner, 09/16/2024 10:15:00 AM, [address] [place], [address], Procedure Notes * Category Sub-Category Detail Notes [...] use of a nail nipper and/or dremel-type drier and grinder tender, to a more viable healthy nail plate or bed tissue 6-10. Silver nitrate used for any petechial bleeding as necessary. Definitive antifungal treatment options have been reviewed and discussed with the patient. The patient chooses, no pharmaceutical tx - 53429 Progress Notes * Levi PEPE LDOB:1950 ( 73 yo M)Acc No.[id number]:04/29/2024 Progress Note Patient:?Levi PEPE Provider:?Brielle Russo DPM :1950???Age:73 Y???Sex:Male Fer e:04/29/2024 Address:[address] [place], [place] [address] Pcp:Art Moya Subjective: * Chief Complaints: * [...] knee surgery 06/2023 * Hospitalization/Major Diagno stic Procedure:[place] [place] [place] [facility] - ear wax/Tooth abscess 07/29/2021 * [...] ?Exercise: no. ?Marital status: . 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 * Medications:?TakingCiclopiro x Olamine [...] vomitingyes[Allergies Verified] Objective: * Vitals:?Ht:5ft9in, Wt:225, B SD:33.22, Shoe size:10, BP:120/76mm Hg, Ht-cm: 175.26 cm, [...] use of a nail nipper and/or dremel-type drier and grinder tender, to a more viable healthy nail plate or bed tissue 6-10. Silver nitrate used for any petechial bleeding as necessary. Definitive antifungal treatment options have been reviewed and discussed with the patient. The patient chooses, no pharmaceutical tx - 55709.? * Procedure Codes:?72606 DEBRI DE NAIL, 6 OR MORE * [...] Russo DPM Date:?06/29/2023 Generated for Ashtyn agudelo/Khurram/Mychalitting on:?08/27/2024 09:20 AM EDT History and Physical Notes * [...]
--- OUTSIDE RECORDS SUMMARY | 2024-08-27 09:21 | XMS_ITS | Clinical Summary ---
Author Organization [facility] Address [address] [place] [address] Care Team Providers Care Oncology Social Work Name Role Phone Melina Hou MD Primary [...] age to complete this topic Care Teams Oncology Social Work Relationship Specialty Start Date End Date Melina Hou MD [address] [place] [address] PCP - General Internal Medicine 11/20/18
--- OUTSIDE RECORDS SUMMARY | 2024-08-27 09:21 | XMS_ITS ---
Author Organization [facility] Address [address] [place] [address] Care Team Providers Care Certified Endoscopy Technician Name Role Phone Savi DUNLAP, Melina Murray Primary Care Provider Un available Brielle Russo Unavailable [phone] Eduar Watson Unavailable [phone] Allergies Allergen (clinical drug ingredient) Drug/Non Drug [...] 024 Encounters Encounter Location Date Provider Diagnosis [facility] [place] [address] [place] [address] 01/25/2024 Eduar Watson Other hammer toe(s) (acquired), [...] Name:Brielle Meadows turner, 09/16/2024 10:15:00 AM, [address] [place], [address], Procedure Notes * Category Sub-Category Detail Notes [...] as necessary. Patient chooses, no pharmaceutical tx (46141) Progress Notes * Levi PEPE LDOB:1950 ( 73 yo M)Acc No.[id number]:01/25/2024 Progress Note Patient:?Levi Pepe Provider:?Eduar Watson DPM :1950???Age:73 Y???Sex:Male Fer e:01/25/2024 Address:[address] [place] [address] Pcp:Art Moya Subjective: * Chief Complaints: * ??? Painful nail(s) aggrevat ed by shoes and causing difficulty standing/walking. * HPI: ???Painful Nails:?Pt States Last PCP Visit:?Date:?08/15/2023 ???Foot Pain:?Nature:?numbness.?Location:?Top, LEFT, Forefoot, Midfoot.?Onset:?lbp.?Toe pain:?Nature:?aching, tenderness, stiffness.?Location:?2nd toe, 3rd toe, Right foot.?Duration:?several months.?Onset/Cause:?unknown.?Aggravated by:?shoes, any pressure.?Treatments:?change in shoes.?Severity/Quality:?moderate.?Misc:?pt had left knee replacement at [facility] 05/23/23--compliacated by tendon and quad muscle [...] surgery 06/2023 * Hospitalization/Major Diagno stic Procedure:?[facility] [place]- [place] right leg 12/02/2019PCP /[facility] [place] [facility] - ear wax/Tooth abscess 07/29/2021 * Family History:?Mother: dece ased, foot problems.?Father: .?Son(s): alive.?Spouse: alive.?3 son(s) . .? * Social History:?Tobacco Use:?Tobacco Use/Smoking?Are you a:?nonsmoker ?Additional Findings: Tobacco Non-User?Current non-smoker ?Tobacco use other than smoking?Are you an other tobacco user??No ???Miscellaneous:?Caffeine: yes, 3-5 cups per day. ?Children: yes, three. ?no Exercise. ?Marital status: . 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 * Medications:?TakingCiclopiro x Olamine [...] as necessary. Patient chooses, no pharmaceutical tx (81745).? * Procedure Codes:?56914 DEBRI DE NAIL, 6 OR MORE, Modifiers: [...] pt had left knee rep lacement at [facility] 05/23/23--compliacated by tendon and quad muscle [...]
--- OUTSIDE RECORDS SUMMARY | 2024-08-27 09:22 | XMS_ITS | Patient Health Record ---
Author Organization [facility] Address [address] [place] [address] Care Team Providers Care Item Repair Manager Name Role Phone Savi DUNLAP, Melina Murray Primary Care Provider Un available Brielle Russo Unavailable [phone] Eduar Watson Unavailable [phone] Allergies Allergen (clinical drug ingredient) Drug/Non Drug [...] primary osteoarthritis of the ankle and/or foot (765394776) Primary osteoarthriti s, right ankle and foot (M19.071) Active confirmed Problem Non-pressure chronic ulcer of other part of left foot limited to breakdown of skin (L97.521) Active confirmed Problem 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.511) Active confirmed Problem Acquired hammer toe of right foot (0844350120778877) Other hammer toe(s) (acquired), right foot (M20.41) Active confirmed Vital Signs Blood pressure diastolic 76 mm Hg 04/29/2024 Height 5ft9in in 04/29/2024 Blood pressure systolic 120 mm Hg 04/29/2024 Weight 225 lbs 04/29/2024 BMI 33.22 kg/m2 04/29/2024 Procedures Procedure Date Ordered Date Performed Result Body Sit e 84071-WGSGAQB NAIL, 6 OR MORE 04/29/2024 N/A Encounters Encounter Location Date Provider Diagnosis [facility] [place] [address] [place] [address] 10/25/2023 Eduar Watson Other hammer toe(s) (acquired), right foot M20.41 ; Tinea unguium B35.1 ; Pain in right toe(s) M79.674 ; Pain in left toe(s) M79.675 ; Ingrowing nail L60.0 and Tinea pedis B35.[address] [address] 01/25/2024 Eduar Watson Other hammer toe(s) (acquired), right foot M20.41 ; Tinea unguium B35.1 ; Pain in right toe(s) M79.674 ; Pain in left toe(s) M79.675 ; Ingrowing nail L60.0 and Tinea pedis B35.[address] [address] 04/29/2024 Brielle Russo Tinea pedis of both [...] X ray : Foot, right 3V 09/08/2021 77753-QENPARF NAIL, 6 OR MORE 12/14/2016 55840-AYLZWET NAIL, 6 OR MORE 03/01/2017 90180-LOPWPFW NAIL, 6 OR MORE 05/31/2017 71964-GQOTTYK NAIL, 6 OR MORE 08/30/2017 23840-SFCOTYK NAIL, 6 OR MORE 11/29/2017 99903-WFQXNER NAIL, 6 OR MORE 04/29/2024 63635-FKWMOYF NAIL, 6 OR MORE 05/01/2018 21631-NJGSXIN NAIL, 6 OR MORE 11/24/2014 31203-YQSIHKS NAIL, 6 OR MORE 02/25/2015 13997-ZJGNJUJ NAIL, 6 OR MORE 06/01/2015 13465-CZGMBTB NAIL, 6 OR MORE 08/31/2015 77738-IWPSBTT NAIL, 6 OR MORE 11/30/2015 03617-VPVDZJG NAIL, 6 OR MORE 03/02/2016 30650-ZULPYFX NAIL, 6 OR MORE 06/20/2016 57699-BWNUVNJ NAIL, 6 OR MORE 09/14/2016 07493-QDABUCA NAIL, 6 OR MORE 01/31/2013 59997-MMHZRYA NAIL, 6 OR MORE 08/12/2013 57594-FGCWRGI NAIL, 6 OR MORE 10/11/2013 05391-XYLVCPU NAIL, 6 OR MORE 02/24/2014 48489-RWSADOB NAIL, 6 OR MORE 05/26/2014 71456-LPYFIHY NAIL, 6 OR MORE 08/25/2014 89265-Flzi Destruction, 06-2508/25/2014 23609-Rtbj Destruction, 06-2507/04/2014 30450-Jfny Destruction, 06-2510/06/2014 00858-Kbid Destruction, 06-2505/26/2014 45918-Mxre Destruction, 06-2502/24/2014 24506-Dqzk Destruction, 06-2510/11/2013 13198-Urjp Destruction, 06-2509/11/2013 34664-Nmha Destruction, 06-2507/15/2013 34921-Ukct Destruction, 06-2508/12/2013 49947-Hbcw Destruction, 06-2502/25/2015 78860-Kyia Destruction, 06-2501/08/2015 87899-Tjegbhpi Plate 11/24/2014 63499-Lzfrjgzp Plate 05/27/2013 02222-Ijijtmsy Plate 02/24/2014 04927-Yzxekncc Plate 05/26/2014 85904-Nwlxqjrj Plate 08/25/2014 31800- Nail Unit Biopsy 01/25/2018 Next Appt Details Provider Name:Brielle Meadows turner, 09/16/2024 10:15:00 AM, [address] [facility], [place], [address], Insurance Providers Payer Name Payer Address Payer Phone Subscriber Number Group Number Insured Name Patient Relationship to Insured Coverage Start Date Coverage End Date Medicare National Govt [employer] [address] [place] [address] [id number] Law Levi Self - patient is the insured [employer] [address] [place] [address] [id number] Law Levi Self - patient is the [...]
== END 2024-08-27 09:25 | disposition home or self-care (01) ==
PROVIDERS: PCP Internal Medicine; Visit Provider Internal Medicine Cardiovascular Disease
DX: I49.3 Ventricular premature depolarization (principal); I10 Essential (primary) hypertension
CPT/HCPCS: 99214; G2211

== ENCOUNTER → 2024-08-27 08:52 | Outpatient (BNVA) | payer MEDICARE, SELFPAY | PROVIDERS: PCP Internal Medicine; Visit Provider Internal Medicine Cardiovascular Disease | DX: I49.3 Ventricular premature depolarization (principal); I10 Essential (primary) hypertension | CPT/HCPCS: 99212 ==

== ENCOUNTER 2024-10-01 11:33 | Outpatient (AMB) | payer MEDICARE, SELFPAY ==
[2024-10-01 12:06] VITALS: BP 132/80; PULSE 63; RESP 16; TEMP 36.8; O2SAT 98; BMI 36.2
--- NOTE | 2024-10-01 12:06 | A.OFFPC_ITS ---
Vital Signs 10/01/24 12:06 Height 5 ft 9 in Weight 245 lb BMI 36.2 BP 132/80 Blood Pressure Location Lt brachial Position Sitting Respiration 16 Pulse 63 Temp 98.3 F Temp Source Oral Pulse Oximetry (%) 98 Oxygen Delivery Method Room Air Intake Visit Reasons: request referral for neurosurgeon re: back pain Intake Note: Pt is here today to request referral for neurosurgeon re: back pain Allergies morphine [Morphine] Allergy (Severe, Verified 10/07/24 01:24) VOMITING, gi upset, hallucinations, vomiting albuterol Allergy (Verified 10/07/24 01:24) Unknown Medication List - Last Reconciled 10/07/24 by Melina Hou MD amlodipine 5 mg PO BEDTIME atenolol 50 mg PO DAILY dutasteride 0.5 mg PO BEDTIME montelukast 10 mg PO BEDTIME multivitamin 1 tab PO DAILY omeprazole 20 mg PO DAILY tamsulosin 0.8 mg PO BEDTIME Tobacco use date assessed: 10/01/24 Fall risk assessment: No Falls in past year Last assessed Fall Risk: 10/01/24 Dental Screening Dental Screen Date: 10/01/24 Did you have a dental visit in the last 12 months?: Yes Did you have a dental problem in the last 6 months where you did not have access to dental care?: No Was dental information given to patient?: Patient has dentist HPI request referral for neurosurgeon re: back pain HPI Details - The patient is a 74-year-old male pres enting with persistent pain in left lower back radiating down leg up to back of knee which is progressively getting worse. - He reports a past L5-S1 spacer and scr ews between L4 and L5 due to lumbar spine issues. - Despite previous surgical correction n oted on the right side, he now experiences back pain radiating from the left side, which began about six months ago. - Episodes are exacerbated by prolonged sitting or driving and relieved by ibuprofen. - An MRI in 2020 highlighted several spi nal issues. - Consultation in [place] suggested a pin ched nerve potentially at L4. - pertinent negatives include muscle we akness, loss of bladder or bowel control, and numbness, despite reported discomfort and impact on mobility from extended sitting. - Anemia was identified but shows improv ement. [facility] Medical History (Updated 10/01/24 @ 12:33 by Melnia Hou MD) Subacute left lumbar radiculopathy Inguinal hernia GERD (gastroesophageal reflux disease) Anemia Hx of adenomatous polyp of colon Impaired fasting glucose Skin lesion of left ear Degenerative joint disease (DJD) of lumbar spine T12 compression fracture Mild intermittent asthma in adult without complication Environmental and seasonal allergies SARIKA on CPAP Essential hypertension Benign prostatic hyperplasia Surgical History History of right inguinal hernia repair (05/06/24) History of back surgery History of total left knee replacement History of excision of mass (03/18/22) History of lumbar spinal fusion Hx of cholecystectomy History of knee surgery Family History Father CAD (coronary artery disease) HTN (hypertension) CVD (cardiovascular disease) Mother Medical history non-contributory Social History Housing: House Are you a primary pet care assistant to a significant other at home: No Do you presently have visiting nurse or other home services: No Alcohol intake: current Alcohol intake frequency: 0-2 drinks per day Patient Tobacco Use Status: Never used Tobacco e-Cigarette/Vaping Use: Never Used Second Hand Smoke Exposure: No Current occupational status: retired Cognitive needs: No Hearing needs: Yes Vision needs: Yes Questionnaire Thrive Questionnaire Date Thrive assessed: 09/24/24 I am a: Patient What is your living situation today?: I have a steady place to live Within the past 12 months, did the food you bought not last and you didn't have the money to get more?: Never true Within the past 12 months, did you worry whether your food would run out before you got money to buy more?: Never true Do you have trouble paying for medicines?: No Do you have trouble getting transportation to medical appointments?: No Do you have trouble paying your heating and electricity bill?: No Do you have trouble taking care of your child, family member or friend?: No Do you have trouble with day-to-day activities such as bathing, preparing meals, shopping, managing finances, etc.?: No Are you currently unemployed and looking for a job?: No Are you interested in more education?: No Please select the resources that you would like help with: None Currently or been in a relationship where the following occur: No concerns reported THRIVE Score: 0 AUDIT C Alcohol Use Questionnaire (AUDIT-C) 1. How often do you have a drink containing alcohol?: 2-4 times a month Total Score: 2 JEAN-7 AMB Questionnaire JEAN-7 Date JEAN - 7 assessed: 03/14/24 Feeling nervous, anxious, or on edge: 0 = Not at all Not being able to stop or control worryin = Not at all Worrying too much about different things: 0 = Not at all Trouble relaxin = Not at all Being so restless that it is hard to sit still: 0 = Not at all Becoming easily annoyed or irritable: 0 = Not at all Feeling afraid as if something awful might happen: 0 = Not at all Total JEAN-7 score (0-4 normal; 5-9 mild; 10-14 moderate; 15-21 severe): 0 Source: Developed by Drs. Scott Alexander, Tawny Aguero, Gideon Gandara and colleagues, with an educational jac from [employer]. Review of Systems Const All systems reviewed & are unremarkable except as noted in HPI and below Physical exam (Primary Care) Vital Signs: Last Vital Signs Temp 98.3 F 10/01/24 12:06 Pulse 63 10/01/24 12:06 Resp 16 10/01/24 12:06 BP 132/80 10/01/24 12:06 Pulse Ox 98 10/01/24 12:06 Oxygen Delivery Method Room Air 10/01/24 12:06 BMI result Body Mass Index 36.2 Tobacco/Smoking Status: Tobacco use Status Tobacco use date assessed 10/01/24 10/01/24 12:09 Patient Tobacco Use Status Never used Tobacco 10/01/24 12:09 e-Cigarette/Vaping Use Never Used 10/01/24 12:09 Thrive Assessment: Date of Thrive Assessment Date Thrive assessed 09/24/24 10/01/24 12:09 Currently or been in a relationship where the following occur: No concerns reported Const General: no acute distress and alert Nutritional Appearance: obese Orientation/consciousness: patient oriented x3 Back/Spine/Pelvis Other: - Musculoskeletal- Tenderness in left lumbar region. No pain on knee extension, negative straight leg raising sign bilaterally . Skin General skin exam: no rashes or lesions noted Neuro General: patient oriented x3, gait normal, tone normal, moves all extremities, Normal light touch and pain sensation and no focal motor deficits Coding Level of Care Code Est Pt Level 4 (93963) Diagnoses Subacute left lumbar radiculopathy M54.16 Assessment & Plan Assessment & Plan (1) Subacute left lumbar radiculopathy: Code(s): M54.16 - Radiculopathy, lumbar region Category: Medical Plan: MRI lumbar spine without contrast ordered. Pending on results, will refer back to Dr. Soares for further evaluation management
--- OUTSIDE RECORDS SUMMARY | 2024-10-01 14:07 | XMS_ITS | Clinical Summary ---
Author Organization [facility] Address [address] [place] [address] Care Team Providers Care Surface Room Shop Optician Name Role Phone Melina Hou MD Primary Care Provider [phone] Social History Tobacco Use Types Packs/Day Years [...] Influencers of Health Screening 05/14/2022 COVID-19 Vaccine (2023-2 5 season) 2024 Influenza Vaccine (Season Ended) 2025 RSV Immunization Adult Patie nts (1 - 1-dose 75+ series) 2025 HIB [...] age to complete this topic Meningococcal B Vaccine Aged Out No l onger eligible based on patient's age to complete this topic RSV Immunization Patients Un carmen 20 months Aged Out No longer eligible b ased on patient's age to complete this topic Varicella Vaccines Aged Out No longer eligible based on patient's age to complete this topic Care Teams Surface Room Shop Optician Relationship Specialty Start Date End Date Melina Hou MD [address] [place] [address] PCP - General Internal Medicine 11/20/18
--- OUTSIDE RECORDS SUMMARY | 2024-10-01 14:07 | XMS_ITS ---
Author Organization [facility] Address [address] [place] [address] Care Team Providers Care Librarian Helper Name Role Phone Savi DUNLAP, Melina Murray Primary Care Provider Un available Brielle Russo Unavailable [phone] Allergies Allergen (clinical drug ingredient) Drug/Non Drug [...] Duration) Notes Start Date End Date Status Flonase 50 MCG/ACT 1 spray in each nost ril Nasally Once a day for 30 day(s) Not-Taking Keflex 500 MG 1 capsule Orally iris ry 12 hrs for 10 day(s) 01/25/2018 Not-Taking baby asprin as directed Not-Ta mckenna Xopenex HFA 45 MCG/ACT PRN Inhalation PRN Not-Taking Albuterol Not-Taking Multivitamins as directed Orally Active Ciclopirox Olamine 0.77 % 1 application Externally Twice a day to skin of feet including between the toes for 30 days Active ZyrTEC Allergy 10 MG 1 tablet [...] a day for 30 day(s) Active Atenolol 50 MG 1 tablet Orally Once a day for 30 days Active Advil 200 MG 1 capsule as needed Orally every 6 hrs 01/31/2013 Active Ciclopirox Olamine 0.77 % 1 application to affected area Externally Twice a day to effected areas on feet for 30 days Active Social History Tobacco Use: Social History Observation Description Date Details (start date - stop date) Never Smoker NA - NA Tobacco use other than smoking: Question Answer Notes Are you an other tobacco user? No Tobacco Control (Standard) Question Answer Notes Tobacco use: Nonsmoker Additional Findings: Tobacco non-user Current no nsmoker AUDIT-C (Standard) Question Answer Notes Did you have a drink containing alcohol in the p ast year? No Points 0 Interpretation Negative Vital Signs Height 5ft9in in 09/16/2024 Weight 225 lbs 09/16/2024 BMI 33.22 kg/m2 09/16/2024 Blood pressure systolic 120 mm Hg 09/17/19 25 Blood pressure diastolic 70 mm Hg 025 Encounters Encounter Location Date Provider Diagnosis [facility] [place] [address] [place] [address] 09/16/2024 Brielle Russo Tinea unguium B35.1 ; Pain in right toe(s) M79.674 and Pain in left toe(s) M79.675 Assessments Encounter Date Diagnosis (ICD Code) Assessment Notes Treatment Notes Treatment Clinical Notes Section Notes 09/16/2024 Tinea unguium (ICD-10 - B35.1) 09/16/2024 Pain in right toe(s) (ICD-10 - M79.674) 09/16/2024 Pain in left toe(s) (ICD-10 - M79.675) Plan Of Treatment Next Appt Details Follow Up: 3 Months, Reason: Provider Name:Brielle tompkins, 12/16/2024 09:15:00 AM, [address] [place], [address], Procedure Notes * Category Sub-Category Detail Notes [...] use of a nail nipper and/or dremel-type bearing grinder, to a more viable healthy nail plate or bed tissue 6-10. Silver nitrate used for any petechial bleeding as necessary. Definitive antifungal treatment options have been reviewed and discussed with the patient. The patient chooses, no pharmaceutical tx - 29063 Progress Notes * Levi PEPE LDOB:1950 ( 74 yo M)Acc No.[id number]:09/16/2024 Progress Note Patient:?Levi PEPE Provider:?Brielle Russo DPM :1950???Age:74 Y???Sex:Male Fer e:09/16/2024 Address:[address] [place] [address] Pcp:Art Moya Subjective: * Chief Complaints: * ??? Painful nail(s) aggrevat ed by shoes and causing difficulty standing/walking. * HPI: ???Painful Nails:?Pt States Last PCP Visit:?Date:?08/15/2024 * ROS:?General/Constitutional:?Nausea?denies.?Vomiting?denies.?Hunger Thirst?denies.?Loss appetite?denies.?Chills?denies.?Fatigue?denies.?Fever?denies.?Night Sweats?denies.?Unexplained weight loss?denies.?Unexplained [...] son(s) . .? * Social History:?Tobacco Use:?Tobacco use other than smoking?Are you an other tobacco user??No ?Tobacco Control (Standard)?Tobacco use:?Nonsmoker ?Additional Findings: Tobacco non-user?Current nonsmoker ???Drugs/Alcohol:?Drugs?Have you used drugs other than those for medical reasons in the past 12 months??No ???Miscellaneous:?Caffeine: yes, 3-5 cups per day. ?Children: yes, three. ?Exercise: no. ?Marital status: . 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 ???Drug/Alcohol:?AUDIT-C (Standard)?Did you have a drink containing alcohol in the past year??No ?Points?0 ?Interpretation?Negative * Medications:?TakingCiclopiro x Olamine 0.77 % Cream [...] Tablet 1 tablet Orally Once a day Ciclopirox Olamine 0.77 % Cream 1 application Externally Twice a day to skin of feet including between the toes Taking Ciclopirox Olamine 0.77 % Cream 1 [...] Ciclopirox Olamine 0.77 % Cream 1 application Externally Twice a day to skin of feet including between the toes Not-Taking/PRNAlbuterol Xopenex HFA 45 MCG/ACT Aerosol PRN [...] Capsule 1 capsule Orally every 12 hrs Not- Taking/PRN Flonase 50 MCG/ACT Suspension 1 spray in each nostril Nasally Once a day Medication List reviewed and reconciled with the patient * Allergies:?Albuterol: resp a rrestPercocet: hallucinationsMorphine: severe vomitingyes[Allergies Verified] Objective: * Vitals:?Ht:5ft9in, Wt:225, B DE:33.22, Shoe size:10, BP:120/70mm Hg, Ht-cm: 175.26 cm, Wt-k.06 kg. * [...] willy pedis, and medial calcaneal nerves B/L.?BABINSKI REFLEX:?absent.?Nails: ?NAILS are:?Elongated, overgrown, dystrophic, lytic, greater than 3mm thick, discolored and friable with crumbly malodorous subungual debris, with pain on palpation,?, TA, T1, T2, T3, T4, T5, T6, T7, T8, T9.?Vascular: ?DP PULSES (B):?2/4, B/L.?PT PULSES (B):?1/4, B/L.?CAPILLARY FILL TIME:?3 secs. per digit, B/L.?TROPHIC CONDITION-TEXTURE/ELASTICITY/TURGOR/HAIR GROWTH (B):? decreased, B/L.?TEMPERTURE GRADIENT (C):?warm to cool, proximal to distal, B/L.?PIGMENTATION:?normal, B/L.?EDEMA (C):?no edema.?TELANGECTASIA:? present.?VARICOSITIES:? present, moderate, nonpainful, B/L.?Orthopedic: ?MUSCLE STRENGTH:?5/5 all groups in a symmetrical fashion , B/L.?GAIT ABNORMALITY:?pronated, abducted, B/L.?DIGITAL DEFORMITIES:? Digital contracture t6 is rigid and flexible hts t7.? Assessment: * Assessment: 1.?Tinea unguium - B35.1 (Pr imary)???2.?Pain in right toe(s) - M79.674???3.?Pain in left toe(s) - M79.675??? Plan: * Treatment: * Procedures:?Debride Nail 6-10:?Nail debridement?Performance of this nail treatment by a nonprofessional would put this patients foot and overall health at risk. Therefore, debridement to affected nail(s), as described in exam, was performed extensively to reduce/remove overall nail length, girth, thickness, subungual debris, and necrotic tissue, by manual and/or electrical means through the use of a nail nipper and/or dremel-type bearing grinder, to a more viable healthy nail plate or bed tissue 6-10. Silver nitrate used for any petechial bleeding as necessary. Definitive antifungal treatment options have been reviewed and discussed with the patient. The patient chooses, no pharmaceutical tx - 02283.? * Procedure Codes:?30238 JASON DE NAIL, 6 OR MORE * Preventive Medicine:? ??Screening/Special Tests:?Fall Risk?Screening:?No falls in the past year ?FALLS: Screening for Future Fall Risk?Have you had any falls with injury in the past year??No * Follow Up:?3 Months * Images: * Sign off status: Completed true * Provider:?Brielle Russo DPM Date:?0 09/16/2024 Generated for Printi ng/Faxing/eTransmitting on:?10/01/2024 02:07 PM EDT History and Physical Notes * HPI (History of Present Illness) Category Sub-Category Detail Notes Category Not es Painful Nails Pt States Last PCP Visit: Date:: 08/15/2024 Examination Category Sub-Category Detail Notes Category Not es Neurological SENSORY: Neurological exa m demonstrates reduced light touch sensation reduced sharp/dull pin prick discrimination reduced vibration sensation reduced proprioception sensation in a stocking fashion Right BABINSKI REFLEX: absent TINEL'S COMPRESSION: Negative tarsal zoltan wan, willy pedis, and medial calcaneal nerves B/L Orthopedic GAIT ABNORMALITY: pronated, abducted, B/L [...] malodorous subungual debris, with pain on palpation, , TA, T1, T2, T3, T4, T5, T6, T7, T8, T9
--- OUTSIDE RECORDS SUMMARY | 2024-10-01 14:07 | XMS_ITS ---
Author Organization [facility] Address [address] [place] [address] Care Team Providers Care Electro Mechanical Assembler Name Role Phone Savi DUNLAP, Melina Murray Primary Care Provider Un available Russo, Brielle Unavailable [phone] Allergies Allergen (clinical drug ingredient) Drug/Non Drug [...] Ordered Date Performed Result Body Sit e 38016-XDSDKDJ NAIL, 6 OR MORE 04/29/2024 N/A Encounters Encounter Location Date Provider Diagnosis [facility] [address] [address] 04/29/2024 Brielle Russo Tinea pedis of both [...] days Pending Test Test Name Order Date 11229-LJWHKJF NAIL, 6 OR MORE 04/29/2024 Next Appt Details Follow Up: 3 Months, Reason: Provider Name:Brielle Whitshelli turner, 12/16/2024 09:15:00 AM, [address] [place], [address], Procedure Notes * Category Sub-Category Detail Notes [...] use of a nail nipper and/or dremel-type emery grinder, to a more viable healthy nail plate or bed tissue 6-10. Silver nitrate used for any petechial bleeding as necessary. Definitive antifungal treatment options have been reviewed and discussed with the patient. The patient chooses, no pharmaceutical tx - 40960 Progress Notes * Levi PEPE LDOB:1950 ( 73 yo M)Acc No.[id number]:04/29/2024 Progress Note Patient:?Levi PEPE Provider:?Brielle Russo DPM :1950???Age:73 Y???Sex:Male Fer e:04/29/2024 Address:[address] [place], [place] [address] Pcp:Art Moya Subjective: * Chief Complaints: * [...] surgery 06/2023 * Hospitalization/Major Diagno stic Procedure:?[facility] [place] leg 12/02/2019PCP /[facility] ER - ear [...] ?Exercise: no. ?Marital status: . 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 * Medications:?TakingCiclopiro x Olamine [...] vomitingyes[Allergies Verified] Objective: * Vitals:?Ht:5ft9in, Wt:225, B WI:33.22, Shoe size:10, BP:120/76mm Hg, Ht-cm: 175.26 cm, [...] use of a nail nipper and/or dremel-type emery grinder, to a more viable healthy nail plate or bed tissue 6-10. Silver nitrate used for any petechial bleeding as necessary. Definitive antifungal treatment options have been reviewed and discussed with the patient. The patient chooses, no pharmaceutical tx - 62367.? * Procedure Codes:?31389 DEBRI DE NAIL, 6 OR MORE * [...] Provider:?Brielle Russo DPM Date:?06/29/2023 Generated for Ashtyn agudelo/Khurram/Thomassmitting on:?10/01/2024 02:07 PM EDT History and Physical [...]
--- OUTSIDE RECORDS SUMMARY | 2024-10-01 14:08 | XMS_ITS | Patient Health Record ---
Author Organization [facility] Address [address] [place] [address] Care Team Providers Care Surveyor Helper Rod Name Role Phone Savi DUNLAP, Melina Murray Primary Care Provider Un available Brielle Russo Unavailable [phone] Eduar Watson Unavailable [phone] Allergies Allergen (clinical drug ingredient) Drug/Non Drug [...] Date Status Multivitamins as directed Orally Active Norvasc 5 MG 1 tablet Orally Once a day for 30 day(s) Active Flomax 0.4 MG 1 capsule 30 minutes after the same meal each day Orally Once a day for 30 day(s) Active Flonase 50 MCG/ACT 1 spray in each nost ril Nasally Once a day for 30 day(s) Not-Taking Atenolol 50 MG 1 tablet Orally Once a day for 30 days Active Keflex 500 MG 1 capsule Orally iris ry 12 hrs for 10 day(s) 01/25/2018 Not-Taking Advil 200 MG 1 capsule as needed Orally every 6 hrs 01/31/2013 Active baby asprin as directed Not-Ta mckenna Ciclopirox Olamine 0.77 % 1 application to affected area Externally Twice a day to effected areas on feet for 30 days Active Xopenex HFA 45 MCG/ACT PRN Inhalation PRN Not-Taking Albuterol Not-Taking Ciclopirox Olamine 0.77 % 1 application Externally [...] e a day for 30 day(s) Active Immunizations [...] No Points 0 Interpretation Negative Vital Signs Blood pressure diastolic 70 mm Hg 09/16/2024 Height 5ft9in in 09/16/2024 Blood pressure systolic 120 mm Hg 09/16/2024 Weight 225 lbs 09/16/2024 BMI 33.22 kg/m2 09/16/2024 Procedures Procedure Date Ordered Date Performed Result Body Sit e 72622-BGJBEFS NAIL, 6 OR MORE 04/29/2024 N/A Encounters Encounter Location Date Provider Diagnosis [facility] [address] [address] 10/25/2023 Eduar Watson Other hammer toe(s) (acquired), right foot M20.41 ; Tinea unguium B35.1 ; Pain in right toe(s) M79.674 ; Pain in left toe(s) M79.675 ; Ingrowing nail L60.0 and Tinea pedis B35.3 [facility] [address] [address] 01/25/2024 Eduar Watson Other hammer toe(s) (acquired), right foot M20.41 ; Tinea unguium B35.1 ; Pain in right toe(s) M79.674 ; Pain in left toe(s) M79.675 ; Ingrowing nail L60.0 and Tinea pedis B35.[address] [address] 04/29/2024 Brielle Russo Tinea pedis of both feet B35.3 ; Tinea unguium B35.1 ; Pain in right toe(s) M79.674 and Pain in left toe(s) M79.[address] [address] 09/16/2024 Brielle Russo Tinea unguium B35.1 ; Pain in right toe(s) M79.674 and Pain in left toe(s) M79.675 Assessments Encounter Date Diagnosis (ICD Code) Assessment Notes Treatment Notes Treatment Clinical Notes Section Notes 10/25/2023 Other hammer toe(s) (acquired), right foot (ICD-10 - M20.41) 01/25/2024 Other hammer toe(s) (acquired), right foot (ICD-10 - M20.41) 04/29/2024 Tinea pedis of both feet (ICD-10 - B35.3) 09/16/2024 Tinea unguium (ICD-10 - B35.1) 09/16/2024 Pain in right toe(s) (ICD-10 - M79.674) 04/29/2024 Tinea unguium (ICD-10 - B35.1) 01/25/2024 Tinea unguium (ICD-10 - B35.1) 10/25/2023 Tinea unguium (ICD-10 - B35.1) 10/25/2023 Pain in right toe(s) (ICD-10 - M79.674) 04/29/2024 Pain in right toe(s) (ICD-10 - M79.674) 09/16/2024 Pain in left toe(s) (ICD-10 - M79.675) 01/25/2024 Pain in right toe(s) (ICD-10 - [...] X ray : Foot, right 3V 09/08/2021 89218-STSKZJV NAIL, 6 OR MORE 12/14/2016 83350-XTCJODU NAIL, 6 OR MORE 03/01/2017 83929-GKWBPOJ NAIL, 6 OR MORE 05/31/2017 44439-CNYMCCA NAIL, 6 OR MORE 08/30/2017 09287-LXUPUTG NAIL, 6 OR MORE 11/29/2017 13559-TZLXIAU NAIL, 6 OR MORE 04/29/2024 36943-MGOMLMV NAIL, 6 OR MORE 05/01/2018 23479-KZXJAYC NAIL, 6 OR MORE 11/24/2014 25502-MNAQZNS NAIL, 6 OR MORE 02/25/2015 92419-BXWYXER NAIL, 6 OR MORE 06/01/2015 05911-GHNSYEM NAIL, 6 OR MORE 08/31/2015 35986-HWKIWVE NAIL, 6 OR MORE 11/30/2015 21686-ZQPESJN NAIL, 6 OR MORE 03/02/2016 40495-ZVVWCYK NAIL, 6 OR MORE 06/20/2016 31335-ODDYPYF NAIL, 6 OR MORE 09/14/2016 20833-XBXIRCM NAIL, 6 OR MORE 01/31/2013 43674-YXUFASB NAIL, 6 OR MORE 08/12/2013 38679-HCVEBUW NAIL, 6 OR MORE 10/11/2013 39512-IUOGRBR NAIL, 6 OR MORE 02/24/2014 67114-KYKKYMQ NAIL, 6 OR MORE 05/26/2014 07497-RUBXGPH NAIL, 6 OR MORE 08/25/2014 13697-Uurd Destruction, 06-2508/25/2014 62966-Tlgb Destruction, 06-2507/04/2014 68159-Swey Destruction, 06-2510/06/2014 23846-Gyca Destruction, 06-2505/26/2014 16216-Gkos Destruction, 06-2502/24/2014 50719-Rist Destruction, 06-2510/11/2013 67467-Okvs Destruction, 06-2509/11/2013 64044-Tzto Destruction, 06-2507/15/2013 92664-Ihss Destruction, 06-2508/12/2013 49800-Uvun Destruction, 06-2502/25/2015 41066-Yarf Destruction, 06-2501/08/2015 34266-Upjoyset Plate 11/24/2014 56243-Tgcbkfda Plate 05/27/2013 98778-Ckdruyso Plate 02/24/2014 47296-Luifvxuk Plate 05/26/2014 28061-Qofcotrx Plate 08/25/2014 82114- Nail Unit Biopsy 01/25/2018 Next Appt Details Provider Name:Brielle Meadows turner, 12/16/2024 09:15:00 AM, [address] [place] [address], [phone], Insurance Providers Payer Name Payer Address Payer Phone Subscriber Number Group Number Insured Name Patient Relationship to Insured Coverage Start Date Coverage End Date Medicare National [employer]t [employer] [address] [facility] [place] [address] [id number] LawLevi Self - patient is the insured [facility] [address] [place] [address] [id number] LawLevi Self - patient is the insured Medical (General) History Medical History History ICD Code Arthritis asthma back, hip, knee pain diverticulosis measles joint implants/screws transfusions Surgical History Surgery Date(Month/Year) knee surgery 06/19, 03/20 carpal tunnel surgery/ bilat tonsillectomy cardiac catheterization 07/25 gall bladder 03/1986 laser vein procedure 05/2016 back surgery 07/12/2019,04/07/21 carpal tunnel surgery 07/12/2019 vein sx left leg - Tooth extraction 08/05/2021 neck mass surgery 03/18/2022 L knee replacement 05/2023 L knee surgery 06/2023 Hospitalization History Reason Date(Month/Year) PCP /[facility] ER - ear wax/Tooth abscess 07/29 [facility]- Stiches right leg 12/02/2019
--- OUTSIDE RECORDS SUMMARY | 2024-10-01 14:08 | XMS_ITS ---
Author Organization [facility] Address [address] [place] [address] Care Team Providers Care Campaign Consultant Name Role Phone Savi DUNLAP, Melina Murray Primary Care Provider Un available Brielle Russo Unavailable [phone] Eduar Watson Unavailable [phone] Allergies Allergen (clinical drug ingredient) Drug/Non Drug [...] 024 Encounters Encounter Location Date Provider Diagnosis [facility] [place] [address] [place] [address] 01/25/2024 Eduar Watson Other hammer toe(s) (acquired), [...] 3 Months, Reason: Provider Name:Brielle Meadows turner, 12/16/2024 09:15:00 AM, [address] [place], [address], Procedure Notes * Category Sub-Category Detail Notes [...] as necessary. Patient chooses, no pharmaceutical tx (34533) Progress Notes * Levi PEPE LDOB:1950 ( 73 yo M)Acc No.[id number]:01/25/2024 Progress Note Patient:?Levi Pepe Provider:?Eduar Watson DPM :1950???Age:73 Y???Sex:Male Fer e:01/25/2024 Address:[address] [place] [address] Pcp:Art Moya Subjective: * Chief Complaints: * ??? Painful nail(s) aggrevat ed by shoes and causing difficulty standing/walking. * HPI: ???Painful Nails:?Pt States Last PCP Visit:?Date:?08/15/2023 ???Foot Pain:?Nature:?numbness.?Location:?Top, LEFT, Forefoot, Midfoot.?Onset:?lbp.?Toe pain:?Nature:?aching, tenderness, stiffness.?Location:?2nd toe, 3rd toe, Right foot.?Duration:?several months.?Onset/Cause:?unknown.?Aggravated by:?shoes, any pressure.?Treatments:?change in shoes.?Severity/Quality:?moderate.?Misc:?pt had left knee replacement at [facility] 05/23/23--compliacated by tendon and quad muscle [...] knee surgery 06/2023 * Hospitalization/Major Diagno stic Procedure:?[facility] [place] 12/02/2019PCP /[facility] ER - ear wax/Tooth abscess 07/29/2021 * Family History:?Mother: dece ased, foot problems.?Father: .?Son(s): alive.?Spouse: alive.?3 son(s) . .? * Social History:?Tobacco Use:?Tobacco Use/Smoking?Are you a:?nonsmoker ?Additional Findings: Tobacco Non-User?Current non-smoker ?Tobacco use other than smoking?Are you an other tobacco user??No ???Miscellaneous:?Caffeine: yes, 3-5 cups per day. ?Children: yes, three. ?no Exercise. ?Marital status: . 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 * Medications:?TakingCiclopiro x Olamine [...] as necessary. Patient chooses, no pharmaceutical tx (64607).? * Procedure Codes:?19291 DEBRI DE NAIL, 6 OR MORE, Modifiers: [...] DPM Date:? 024 Generated for Ashtyn agudelo/Khurram/Regine on:?10/01/2024 02:07 PM EDT History and Physical Notes * HPI (History of Present Illness) Category Sub-Category Detail Notes Category Not es Toe pain Nature: aching, tenderness, stiffnes s Location: 2nd toe, 3rd toe, Ri ght foot Duration: several months Onset/Cause: unknown Aggravated by: shoes, any pressure Treatments: change in shoes Severity/Quality: moderate Misc: pt had left knee rep lacement at [facility] 05/23/23--compliacated by tendon and quad muscle [...]
== END 2024-10-01 12:50 | disposition home or self-care (01) ==
LOC: HO.HMCC 11:34
PROVIDERS: PCP Internal Medicine; Visit Provider Internal Medicine
DX: M54.16 Radiculopathy, lumbar region (principal)

== ENCOUNTER → 2024-10-01 11:33 | Outpatient (BNVA) | payer MEDICARE, SELFPAY | PROVIDERS: PCP Internal Medicine; Visit Provider Internal Medicine | DX: M54.16 Radiculopathy, lumbar region (principal) | CPT/HCPCS: 99212 ==

== ENCOUNTER → 2024-10-10 15:40 | Outpatient (BNV) | payer MEDICARE, SELFPAY | PROVIDERS: PCP Internal Medicine; Visit Provider Radiology Diagnostic Radiology | DX: Z98.1 Arthrodesis status (principal); S32.010A Wedge compression fracture of first lumbar vertebra, initial encounter for closed fracture | CPT/HCPCS: 72158 ==

== ENCOUNTER 2024-10-10 15:42 | Outpatient (REF) | payer MEDICARE, SELFPAY ==
--- NOTE | ~2024-10-10 | MR_ITS ---
EXAMINATION: MR LUMBAR SPINE WITHOUT AND WITH CONTRAST CLINICAL INFORMATION: Bilateral radiculopathy. Low back pain. Leg weakness and numbness. COMPARISON: None available. TECHNIQUE: MRI of the lumbar spine was obtained using routine sequences with and without contrast. Intravenous contrast: Gadavist 10 mL mL FINDINGS: There is maintained lumbar lordosis. There is loss of L1 vertebral height approximately 80%. Mild posterior bony component seen indenting the ventral thecal sac. Rest the vertebral heights are normal there is grade 1 anterolisthesis L4 over L5. The disc heights are preserved. Disc desiccation changes are noted at the L3-4 disc level. Rest of the disc signal is normal. At T12-L1 disc level there is no significant disc bulge, herniation or spinal canal stenosis. The neural foramina are slightly blunted secondary to fracture of L1 vertebra but no foraminal stenosis seen. At L1-2 disc level is minimal bulge flattening the ventral thecal sac without spinal canal stenosis. The neural foramina are mildly narrowed bilaterally. At L2-3 disc level there is minimal bulge without any spinal canal stenosis. The neural foramina are patent bilaterally. At L3-4 disc level there is no significant disc bulge, herniation or spinal canal stenosis. The thecal sac is capacious. The neural foramina are widely patent. At L4-5 disc level there is minimal bulge with capacious thecal sac. The neural foramina patent bilaterally. At L5-S1 disc level there is minimal pseudodisc bulge flattening the thecal sac. No spinal canal stenosis. The neural foramina are mildly narrowed bilaterally. Rapid L5-S1 disc level the disc heights is normal. There is mild disc desiccation change.. No disc herniation or bulge seen. No spinal canal stenosis. The neural foramina suboptimally visualized due to fusion artifacts from the metal. The bone marrow signal is normal including the L1 compression fracture. There is mild inferior endplate changes at L3 vertebra. Conus medullaris terminates at L1-with disc level and appears normal in morphology. Postcontrast there is no abnormal enhancement seen at any of the vertebrae, bone marrow or the pattern of the soft tissues. No abnormal intraspinal enhancement seen either. MR/MR lumbar spine wo/w con IMPRESSION: L5-S1 fusion with posterior hardware for stabilization. Grade 1 anterolisthesis L4-L5 with diffuse pseudo disc bulge but no spinal canal stenosis. No no impingement seen at this time. Compression fracture L1 vertebra with previous cement augmentation. No new fractures seen. There is no abnormal enhancement seen in the bone marrow, spinal canal or paraspinal soft tissues this time. Electronically signed by: Lawson Roy MD 10/11/2024 09:57 AM EDT RP
[2024-10-10] MEDS: gadobutroL 10 ML VIAL IVPUSH (17:06)
--- OUTSIDE RECORDS SUMMARY | 2024-10-10 17:21 | XMS_ITS | Clinical Summary ---
Author Organization [facility] Address [address] [place] [address] Care Team Providers Care Area Forester Name Role Phone Melina Hou MD Primary [...] age to complete this topic Care Teams Area Forester Relationship Specialty Start Date End Date Melina Hou MD [address] [place] [address] PCP - General Internal Medicine 11/20/18
--- OUTSIDE RECORDS SUMMARY | 2024-10-10 17:21 | XMS_ITS ---
Author Organization [facility] Address [address] [place] [address] Care Team Providers Care Bond Underwriter Name Role Phone Savi DUNLAP, Melina Murray Primary Care Provider Un available Brielle Russo Unavailable [phone] Eduar Watson Unavailable [phone] Allergies Allergen (clinical drug ingredient) Drug/Non Drug [...] 024 Encounters Encounter Location Date Provider Diagnosis [facility] [place] [address] [place] [address] 01/25/2024 Eduar Watson Other hammer toe(s) (acquired), [...] Name:Brielle Meadows turner, 12/16/2024 09:15:00 AM, [address] [place], [address], Procedure Notes * Category Sub-Category Detail Notes [...] as necessary. Patient chooses, no pharmaceutical tx (45484) Progress Notes * Levi PEPE LDOB:1950 ( 73 yo M)Acc No.[id number]:01/25/2024 Progress Note Patient:?Levi Pepe Provider:?Eduar Watson DPM :1950???Age:73 Y???Sex:Male Fer e:01/25/2024 Address:[address] [place] [address] Pcp:Art Moya Subjective: * Chief Complaints: * ??? Painful nail(s) aggrevat ed by shoes and causing difficulty standing/walking. * HPI: ???Painful Nails:?Pt States Last PCP Visit:?Date:?08/15/2023 ???Foot Pain:?Nature:?numbness.?Location:?Top, LEFT, Forefoot, Midfoot.?Onset:?lbp.?Toe pain:?Nature:?aching, tenderness, stiffness.?Location:?2nd toe, 3rd toe, Right foot.?Duration:?several months.?Onset/Cause:?unknown.?Aggravated by:?shoes, any pressure.?Treatments:?change in shoes.?Severity/Quality:?moderate.?Misc:?pt had left knee replacement at [facility] 05/23/23--compliacated by tendon and quad muscle rupture [...] knee surgery 06/2023 * Hospitalization/Major Diagno stic Procedure:[place] [place] 12/02/2019PCP /[facility] [place] - ear wax/Tooth abscess 07/29/2021 * Family History:?Mother: dece ased, foot problems.?Father: .?Son(s): alive.?Spouse: alive.?3 son(s) . .? * Social History:?Tobacco Use:?Tobacco Use/Smoking?Are you a:?nonsmoker ?Additional Findings: Tobacco Non-User?Current non-smoker ?Tobacco use other than smoking?Are you an other tobacco user??No ???Miscellaneous:?Caffeine: yes, 3-5 cups per day. ?Children: yes, three. ?no Exercise. ?Marital status: . 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 * Medications:?TakingCiclopiro x Olamine [...] as necessary. Patient chooses, no pharmaceutical tx (51999).? * Procedure Codes:?37777 DEBRI DE NAIL, 6 OR MORE, Modifiers: [...] DPM Date:? 024 Generated for Ashtyn agudelo/Khurram/Regine on:?10/10/2024 05:21 PM EDT History and Physical Notes * HPI (History of Present Illness) Category Sub-Category Detail Notes Category Not es Toe pain Nature: aching, tenderness, stiffnes s Location: 2nd toe, 3rd toe, Ri ght foot Duration: several months Onset/Cause: unknown Aggravated by: shoes, any pressure Treatments: change in shoes Severity/Quality: moderate Misc: pt had left knee rep lacement at [facility] 05/23/23--compliacated by tendon and quad muscle rupture [...]
--- OUTSIDE RECORDS SUMMARY | 2024-10-10 17:21 | XMS_ITS ---
Author Organization [facility] Address [address] [place] [address] Care Team Providers Care Upper Cutter Machine Name Role Phone Savi DUNLAP, Melina Murray Primary Care Provider Un available Brielle Russo Unavailable [phone] Allergies Allergen (clinical drug ingredient) Drug/Non Drug [...] 025 Encounters Encounter Location Date Provider Diagnosis [facility] [place] [address] [place] [address] 09/16/2024 Brielle Russo Tinea unguium B35.1 ; [...] Provider Name:Brielle tompkins, 12/16/2024 09:15:00 AM, [address] [place], [address], Procedure Notes * Category Sub-Category Detail Notes [...] use of a nail nipper and/or dremel-type precision lens grinder apprentice, to a more viable healthy nail plate or bed tissue 6-10. Silver nitrate used for any petechial bleeding as necessary. Definitive antifungal treatment options have been reviewed and discussed with the patient. The patient chooses, no pharmaceutical tx - 66225 Progress Notes * Levi PEPE LDOB:1950 ( 74 yo M)Acc No.[id number]:09/16/2024 Progress Note Patient:?Levi PEPE Provider:?Brielle Russo DPM :1950???Age:74 Y???Sex:Male Fer e:09/16/2024 Address:[address] [place] [address] Pcp:Art Moya Subjective: * Chief Complaints: * [...] knee surgery 06/2023 * Hospitalization/Major Diagno stic [place] [place] 12/[place]P /[facility] [place] - ear wax/Tooth abscess 07/29/2021 * [...] ?Exercise: no. ?Marital status: . 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 ???Drug/Alcohol:?AUDIT-C (Standard)?Did you have [...] vomitingyes[Allergies Verified] Objective: * Vitals:?Ht:5ft9in, Wt:225, B MT:33.22, Shoe size:10, BP:120/70mm Hg, Ht-cm: 175.26 cm, [...] use of a nail nipper and/or dremel-type precision lens grinder apprentice, to a more viable healthy nail plate or bed tissue 6-10. Silver nitrate used for any petechial bleeding as necessary. Definitive antifungal treatment options have been reviewed and discussed with the patient. The patient chooses, no pharmaceutical tx - 24459.? * Procedure Codes:?36894 JASON DE NAIL, 6 OR MORE * Preventive Medicine:? ??Screening/Special Tests:?Fall Risk?Screening:?No falls in the past year ?FALLS: Screening for Future Fall Risk?Have you had any falls with injury in the past year??No * Follow Up:?3 Months * Images: * Sign off status: Completed true * Provider:?Brielle Russo DPM Date:?0 09/16/2024 Generated for Printi ng/Faxing/eTransmitting on:?10/10/2024 05:21 PM EDT History and Physical [...] REFLEX: absent TINEL'S COMPRESSION: Negative tarsal zoltan awn, willy pedis, and medial calcaneal nerves B/L [...]
--- OUTSIDE RECORDS SUMMARY | 2024-10-10 17:21 | XMS_ITS ---
Author Organization [facility] Address [address] [place] [address] Care Team Providers Care Data Processing Specialist Name Role Phone Savi DUNLAP, Melina Murray Primary Care Provider Un available Russo, Brielle Unavailable [phone] Allergies Allergen (clinical drug ingredient) Drug/Non Drug [...] Ordered Date Performed Result Body Sit e 92217-HSTMGLT NAIL, 6 OR MORE 04/29/2024 N/A Encounters Encounter Location Date Provider Diagnosis [facility] [address] [address] 04/29/2024 Brielle Russo Tinea pedis of both [...] days Pending Test Test Name Order Date 71006-ICVLUGO NAIL, 6 OR MORE 04/29/2024 Next Appt Details Follow Up: 3 Months, Reason: Provider Name:Brielle Whitshelli turner, 12/16/2024 09:15:00 AM, [address] [place], [address], Procedure Notes * Category Sub-Category Detail Notes [...] use of a nail nipper and/or dremel-type jewel grinder, to a more viable healthy nail plate or bed tissue 6-10. Silver nitrate used for any petechial bleeding as necessary. Definitive antifungal treatment options have been reviewed and discussed with the patient. The patient chooses, no pharmaceutical tx - 25112 Progress Notes * Levi PEPE LDOB:1950 ( 73 yo M)Acc No.[id number]:04/29/2024 Progress Note Patient:?Levi PEPE Provider:?Brielle Russo DPM :1950???Age:73 Y???Sex:Male Fer e:04/29/2024 Address:[address] [place], [place] [id number] Pcp:Art Moya Subjective: * Chief Complaints: * [...] knee surgery 06/2023 * Hospitalization/Major Diagno stic [place] [place] [place]/Tooth abscess 07/29/2021 * [...] ?Exercise: no. ?Marital status: . 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 * Medications:?TakingCiclopiro x Olamine [...] use of a nail nipper and/or dremel-type jewel grinder, to a more viable healthy nail plate or bed tissue 6-10. Silver nitrate used for any petechial bleeding as necessary. Definitive antifungal treatment options have been reviewed and discussed with the patient. The patient chooses, no pharmaceutical tx - 10426.? * Procedure Codes:?95930 DEBRI DE NAIL, 6 OR MORE * [...] Russo DPM Date:?06/29/2023 Generated for Ashtyn agudelo/Khurram/Mychalitting on:?10/10/2024 05:21 PM EDT History and Physical [...]
--- OUTSIDE RECORDS SUMMARY | 2024-10-10 17:22 | XMS_ITS | Patient Health Record ---
Author Organization [facility] Address [address] [place] [address] Care Team Providers Care Piano And Organ Refinisher Name Role Phone Savi DUNLAP, Melina Murray Primary Care Provider Un available Brielle Russo Unavailable [phone] Eduar Watson Unavailable [phone] Allergies Allergen (clinical drug ingredient) Drug/Non Drug [...] Ordered Date Performed Result Body Sit e 95639-RHKUTIK NAIL, 6 OR MORE 04/29/2024 N/A Encounters Encounter Location Date Provider Diagnosis [facility] [address] [address] 10/25/2023 Eduar Watson Other hammer toe(s) (acquired), right foot M20.41 ; Tinea unguium B35.1 ; Pain in right toe(s) M79.674 ; Pain in left toe(s) M79.675 ; Ingrowing nail L60.0 and Tinea pedis B35.[address] [facility] [address] [address] 01/25/2024 Eduar Watson Other hammer toe(s) (acquired), right foot M20.41 ; Tinea unguium B35.1 ; Pain in right toe(s) M79.674 ; Pain in left toe(s) M79.675 ; Ingrowing nail L60.0 and Tinea pedis B35.[address] [address] 04/29/2024 Brielle Russo Tinea pedis of both feet B35.3 ; Tinea unguium B35.1 ; Pain in right toe(s) M79.674 and Pain in left toe(s) M79.[address] [address] 09/16/2024 Brielle Russo Tinea unguium B35.1 ; [...] X ray : Foot, right 3V 09/08/2021 14614-IFGQGSK NAIL, 6 OR MORE 12/14/2016 71644-YWGHKGE NAIL, 6 OR MORE 03/01/2017 93881-NLSNUYQ NAIL, 6 OR MORE 05/31/2017 52879-VBZALZF NAIL, 6 OR MORE 08/30/2017 30304-PNPFOUV NAIL, 6 OR MORE 11/29/2017 74685-SLZGKXI NAIL, 6 OR MORE 04/29/2024 58557-MZZKHFD NAIL, 6 OR MORE 05/01/2018 57325-SKPIYUF NAIL, 6 OR MORE 11/24/2014 24984-XKXARCE NAIL, 6 OR MORE 02/25/2015 06754-HGVYIIS NAIL, 6 OR MORE 06/01/2015 96928-CPGQCMD NAIL, 6 OR MORE 08/31/2015 29278-FVYOLFX NAIL, 6 OR MORE 11/30/2015 34696-ABGFLNT NAIL, 6 OR MORE 03/02/2016 11314-YAWRPRQ NAIL, 6 OR MORE 06/20/2016 09774-DHTWIAY NAIL, 6 OR MORE 09/14/2016 58827-ESDLUHO NAIL, 6 OR MORE 01/31/2013 81164-EQLQHXJ NAIL, 6 OR MORE 08/12/2013 11949-MMWRITV NAIL, 6 OR MORE 10/11/2013 04362-YEURBXN NAIL, 6 OR MORE 02/24/2014 39576-JHPQRBW NAIL, 6 OR MORE 05/26/2014 35453-TGEIWDD NAIL, 6 OR MORE 08/25/2014 45574-Hlnz Destruction, 06-2508/25/2014 85588-Olnk Destruction, 06-2507/04/2014 06113-Jpkp Destruction, 06-2510/06/2014 04596-Qqcw Destruction, 06-2505/26/2014 43469-Iqqc Destruction, 06-2502/24/2014 11315-Usal Destruction, 06-2510/11/2013 56464-Ausk Destruction, 06-2509/11/2013 66771-Unoj Destruction, 06-2507/15/2013 83048-Cqiw Destruction, 06-2508/12/2013 01811-Snzp Destruction, 06-2502/25/2015 68951-Rxxw Destruction, 06-2501/08/2015 82588-Ojfkcixb Plate 11/24/2014 69554-Uykyeeot Plate 05/27/2013 89464-Bzdxobft Plate 02/24/2014 98097-Nqdoizyb Plate 05/26/2014 28816-Wpvnrfdy Plate 08/25/2014 71410- Nail Unit Biopsy 01/25/2018 Next Appt Details Provider Name:Brielle Meadows turner, 12/16/2024 09:15:00 AM, [address] [place] [address], [phone], Insurance Providers Payer Name Payer Address Payer Phone Subscriber Number Group Number Insured Name Patient Relationship to Insured Coverage Start Date Coverage End Date Medicare National [employer] [address] [facility] [place] [address] [id number] LawLevi Self - patient is the insured [facility] [address] [place] [address] [id number] Law[employer] Self - patient is the insured [...]
== END 2024-10-10 15:43 | disposition home or self-care (01) ==
LOC: HO.MRI 15:42
PROVIDERS: PCP Internal Medicine; Visit Provider Internal Medicine
DX: M54.16 Radiculopathy, lumbar region (principal); Z98.890 Other specified postprocedural states
CPT/HCPCS: 72158; A9585

== ENCOUNTER 2024-10-21 12:49 | Outpatient (AMB) | payer MEDICARE, SELFPAY ==
--- NOTE | 2024-10-21 13:04 | A.SPINEOV_ITS ---
Vital Signs 10/21/24 13:09 Height 5 ft 9 in Weight 245 lb BMI 36.2 Intake Visit Reasons: lumbar radiculopathy Intake Note: Mr. Flores is here today c/o low back pain. Final Coat Sprayer Required: No Allergies morphine [Morphine] Allergy (Severe, Verified 10/21/24 13:09) VOMITING, gi upset, hallucinations, vomiting albuterol Allergy (Verified 10/21/24 13:09) Unknown Physical Exam Vital Signs: BMI result Body Mass Index 36.2 Assessment & Plan Assessment & Plan (1) Subacute left lumbar radiculopathy: Code(s): M54.16 - Radiculopathy, lumbar region Category: Medical Plan Mr flores is a patient well known to us from our previous practice at [facility]. He is status post L5-S1 transforaminal lumbar interbody fusion. He did well after that and has been carrying on with life as usual until he underwent a number of different knee replacement issues on his left knee over a year ago. He was having trouble and was in rehab when he tore his quadriceps tendon it sounds like which then necessitated a whole different repair of the leg. He noticed after that, he was having a hard time walking with pain down his anterior thighs. He is not sure if it is directly related, or if it is just incidental but sometime around that time there was a long car ride he had to take and after that he noticed back pain and anterior thigh pain. He underwent an MRI was told to follow-up with us. On exam he has no focal weakness of the lower extremities, obviously he has an absent reflexes in the left patella, but otherwise gait, station and strength are normal. His lumbar MRI was done at [facility] and this shows postsurgical changes at L5-S1 but no meaningful central canal stenosis or foraminal stenosis throughout the rest of the lumbar spine. I did standing flexion-extension x-rays and I do not see any signs of instability. Unfortunately I do not have an explanation for him as to what is causing his symptoms. He does not need any back surgery. Total amount of time spent in this visit was 20 minutes in discussion of symptoms, lumbar imaging results and subsequent plan of care Wilbert Soares MD,PhD [facility] Orders: Orders XR lumbar spine 4V min Today M54.16 - Radiculopathy, lumbar region Coding Level of Care Code Est Pt Level 3 (95363) Diagnoses Subacute left lumbar radiculopathy M54.16
--- OUTSIDE RECORDS SUMMARY | 2024-10-21 13:08 | XMS_ITS | Clinical Summary ---
Author Organization [facility] Address [address] [place] [address] Care Team Providers Care Linseed Oil Press Tender Name Role Phone Melina Hou MD Primary [...] age to complete this topic Care Teams Linseed Oil Press Tender Relationship Specialty Start Date End Date Melina Hou MD [address] [place] [address] PCP - General Internal Medicine 11/20/18
--- OUTSIDE RECORDS SUMMARY | 2024-10-21 13:08 | XMS_ITS ---
Author Organization [facility] Address [address] [place] [address] Care Team Providers Care Trauma Surgeon Name Role Phone Savi DUNLAP, Melina Murray Primary Care Provider Un available Brielle Russo Unavailable [phone] Eduar Watson Unavailable [phone] Allergies Allergen (clinical drug ingredient) Drug/Non Drug [...] 024 Encounters Encounter Location Date Provider Diagnosis [facility] [place] [address] [place] [address] 01/25/2024 Eduar Watson Other hammer toe(s) (acquired), [...] Name:Brielle Meadows turner, 12/16/2024 09:15:00 AM, [address] [place], [address], Procedure Notes * Category Sub-Category Detail Notes [...] as necessary. Patient chooses, no pharmaceutical tx (23456) Progress Notes * Levi PEPE LDOB:1950 ( 73 yo M)Acc No.[id number]:01/25/2024 Progress Note Patient:?Levi Pepe Provider:?Eduar Watson DPM :1950???Age:73 Y???Sex:Male Fer e:01/25/2024 Address:[address] [place] [address] Pcp:Art Moya Subjective: * Chief Complaints: * ??? Painful nail(s) aggrevat ed by shoes and causing difficulty standing/walking. * HPI: ???Painful Nails:?Pt States Last PCP Visit:?Date:?08/15/2023 ???Foot Pain:?Nature:?numbness.?Location:?Top, LEFT, Forefoot, Midfoot.?Onset:?lbp.?Toe pain:?Nature:?aching, tenderness, stiffness.?Location:?2nd toe, 3rd toe, Right foot.?Duration:?several months.?Onset/Cause:?unknown.?Aggravated by:?shoes, any pressure.?Treatments:?change in shoes.?Severity/Quality:?moderate.?Misc:?pt had left knee replacement at [facility] 05/23/23--compliacated by tendon and quad muscle [...] knee surgery 06/2023 * Hospitalization/Major Diagno stic Procedure:?[facility] [place] 12/02/2019PCP /[facility] [place] [facility] - ear wax/Tooth abscess 07/29/2021 * Family History:?Mother: dece ased, foot problems.?Father: .?Son(s): alive.?Spouse: alive.?3 son(s) . .? * Social History:?Tobacco Use:?Tobacco Use/Smoking?Are you a:?nonsmoker ?Additional Findings: Tobacco Non-User?Current non-smoker ?Tobacco use other than smoking?Are you an other tobacco user??No ???Miscellaneous:?Caffeine: yes, 3-5 cups per day. ?Children: yes, three. ?no Exercise. ?Marital status: . 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 * Medications:?TakingCiclopiro x Olamine [...] as necessary. Patient chooses, no pharmaceutical tx (17361).? * Procedure Codes:?93747 DEBRI DE NAIL, 6 OR MORE, Modifiers: [...] DPM Date:? 024 Generated for Ashtyn agudelo/Khurram/Regine on:?10/21/2024 01:08 PM EDT History and Physical Notes * HPI (History of Present Illness) Category Sub-Category Detail Notes Category Not es Toe pain Nature: aching, tenderness, stiffnes s Location: 2nd toe, 3rd toe, Ri ght foot Duration: several months Onset/Cause: unknown Aggravated by: shoes, any pressure Treatments: change in shoes Severity/Quality: moderate Misc: pt had left knee rep lacement at [facility] 05/23/23--compliacated by tendon and quad muscle [...]
--- OUTSIDE RECORDS SUMMARY | 2024-10-21 13:08 | XMS_ITS ---
Author Organization [facility] Address [address] [place] [address] Care Team Providers Care Occupational Therapy Instructor Name Role Phone Savi DUNLAP, Melina Murray Primary Care Provider Un available Russo, Brielle Unavailable [phone] Allergies Allergen (clinical drug ingredient) Drug/Non Drug [...] Ordered Date Performed Result Body Sit e 25350-XVHMBMD NAIL, 6 OR MORE 04/29/2024 N/A Encounters Encounter Location Date Provider Diagnosis [facility] [address] [address] 04/29/2024 Brielle Russo Tinea pedis of both [...] days Pending Test Test Name Order Date 72835-VOXPQKC NAIL, 6 OR MORE 04/29/2024 Next Appt Details Follow Up: 3 Months, Reason: Provider Name:Brielle Whitshelli turner, 12/16/2024 09:15:00 AM, [address] [place], [address], Procedure Notes * Category Sub-Category Detail Notes [...] use of a nail nipper and/or dremel-type bone grinder, to a more viable healthy nail plate or bed tissue 6-10. Silver nitrate used for any petechial bleeding as necessary. Definitive antifungal treatment options have been reviewed and discussed with the patient. The patient chooses, no pharmaceutical tx - 63648 Progress Notes * Levi PEPE LDOB:1950 ( 73 yo M)Acc No.[id number]:04/29/2024 Progress Note Patient:?Levi PEPE Provider:?Brielle Russo DPM :1950???Age:73 Y???Sex:Male Fer e:04/29/2024 Address:[address] [place], [place] [id number] Pcp:Art Moya Subjective: * Chief Complaints: * [...] knee surgery 06/2023 * Hospitalization/Major Diagno stic Procedure:?[facility] [place] 12/02/2019PCP /[facility] [place] - ear [...] ?Exercise: no. ?Marital status: . 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 * Medications:?TakingCiclopiro x Olamine [...] vomitingyes[Allergies Verified] Objective: * Vitals:?Ht:5ft9in, Wt:225, B WV:33.22, Shoe size:10, BP:120/76mm Hg, Ht-cm: 175.26 cm, [...] use of a nail nipper and/or dremel-type bone grinder, to a more viable healthy nail plate or bed tissue 6-10. Silver nitrate used for any petechial bleeding as necessary. Definitive antifungal treatment options have been reviewed and discussed with the patient. The patient chooses, no pharmaceutical tx - 45272.? * Procedure Codes:?89780 DEBRI DE NAIL, 6 OR MORE * [...] Russo DPM Date:?06/29/2023 Generated for Ashtyn agudelo/Khurram/Mychalitting on:?10/21/2024 01:07 PM EDT History and Physical Notes * [...]
--- OUTSIDE RECORDS SUMMARY | 2024-10-21 13:08 | XMS_ITS ---
Author Organization [facility] Address [address] [place] [address] Care Team Providers Care Cosmetology Instructor Name Role Phone Savi DUNLAP, Melina Murray Primary Care Provider Un available Brielle Russo Unavailable [phone] Allergies Allergen (clinical drug ingredient) Drug/Non Drug [...] 025 Encounters Encounter Location Date Provider Diagnosis [facility] [place] [address] [place] [address] 09/16/2024 Brielle Russo Tinea unguium B35.1 ; [...] Provider Name:Brielle tompkins, 12/16/2024 09:15:00 AM, [address] [place], [address], Procedure Notes * Category Sub-Category Detail Notes [...] use of a nail nipper and/or dremel-type meat grinder, to a more viable healthy nail plate or bed tissue 6-10. Silver nitrate used for any petechial bleeding as necessary. Definitive antifungal treatment options have been reviewed and discussed with the patient. The patient chooses, no pharmaceutical tx - 95988 Progress Notes * Levi PEPE LDOB:1950 ( 74 yo M)Acc No.[id number]:09/16/2024 Progress Note Patient:?Levi PEPE Provider:?Brielle Russo DPM :1950???Age:74 Y???Sex:Male Fer e:09/16/2024 Address:[address] [place] [address] Pcp:Art Moya Subjective: * Chief Complaints: * [...] ?Exercise: no. ?Marital status: . 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 ???Drug/Alcohol:?AUDIT-C (Standard)?Did you have a drink [...] vomitingyes[Allergies Verified] Objective: * Vitals:?Ht:5ft9in, Wt:225, B VT:33.22, Shoe size:10, BP:120/70mm Hg, Ht-cm: 175.26 cm, [...] use of a nail nipper and/or dremel-type meat grinder, to a more viable healthy nail plate or bed tissue 6-10. Silver nitrate used for any petechial bleeding as necessary. Definitive antifungal treatment options have been reviewed and discussed with the patient. The patient chooses, no pharmaceutical tx - 45372.? * Procedure Codes:?56254 JASON DE NAIL, 6 OR MORE * Preventive Medicine:? ??Screening/Special Tests:?Fall Risk?Screening:?No falls in the past year ?FALLS: Screening for Future Fall Risk?Have you had any falls with injury in the past year??No * Follow Up:?3 Months * Images: * Sign off status: Completed true * Provider:?Brielle Russo DPM Date:?0 09/16/2024 Generated for Printi ng/Faxing/eTransmitting on:?10/21/2024 01:08 PM EDT History and Physical [...]
--- OUTSIDE RECORDS SUMMARY | 2024-10-21 13:08 | XMS_ITS | Patient Health Record ---
[facility] Address [address] [place] [address] Care Team Providers Care Physician Relations Specialist Name Role Phone Savi DUNLAP, Melina Murray Primary Care Provider Un available Brielle Russo Unavailable [phone] Eduar Watson Unavailable [phone] Allergies Allergen (clinical drug ingredient) Drug/Non Drug [...] Ordered Date Performed Result Body Sit e 36622-RZPLCHZ NAIL, 6 OR MORE 04/29/2024 N/A Encounters Encounter Location Date Provider Diagnosis [facility] [address] [address] 10/25/2023 Eduar Watson Other hammer toe(s) (acquired), right foot M20.41 ; Tinea unguium B35.1 ; Pain in right toe(s) M79.674 ; Pain in left toe(s) M79.675 ; Ingrowing nail L60.0 and Tinea pedis B35.3 [facility] [address] [address] 01/25/2024 Eduar Watson Other hammer toe(s) (acquired), right foot M20.41 ; Tinea unguium B35.1 ; Pain in right toe(s) M79.674 ; Pain in left toe(s) M79.675 ; Ingrowing nail L60.0 and Tinea pedis B35.[address] [address] 04/29/2024 Brielle Russo Tinea pedis of both feet B35.3 ; Tinea unguium B35.1 ; Pain in right toe(s) M79.674 and Pain in left toe(s) M79.[address] [address] 09/16/2024 Brielle Russo Tinea unguium B35.1 ; [...] X ray : Foot, right 3V 09/08/2021 49201-NZASIFL NAIL, 6 OR MORE 12/14/2016 14745-SBJYVUV NAIL, 6 OR MORE 03/01/2017 84241-WJJVXTU NAIL, 6 OR MORE 05/31/2017 55706-UUIHSUS NAIL, 6 OR MORE 08/30/2017 91349-WCMNNIQ NAIL, 6 OR MORE 11/29/2017 45076-QOLAIAA NAIL, 6 OR MORE 04/29/2024 82155-LMIVNWL NAIL, 6 OR MORE 05/01/2018 92635-AOTTHAS NAIL, 6 OR MORE 11/24/2014 22566-DWFIIKG NAIL, 6 OR MORE 02/25/2015 98276-VBMUDLG NAIL, 6 OR MORE 06/01/2015 02547-WDUGWAY NAIL, 6 OR MORE 08/31/2015 76325-ZYUGIFF NAIL, 6 OR MORE 11/30/2015 15912-QCGOINW NAIL, 6 OR MORE 03/02/2016 26297-NWKKSER NAIL, 6 OR MORE 06/20/2016 06342-ZHJXBSO NAIL, 6 OR MORE 09/14/2016 81366-KAKLDFE NAIL, 6 OR MORE 01/31/2013 11398-MDEWHKB NAIL, 6 OR MORE 08/12/2013 43030-LYFABNW NAIL, 6 OR MORE 10/11/2013 85397-JRLBWGX NAIL, 6 OR MORE 02/24/2014 68577-KLBIGRR NAIL, 6 OR MORE 05/26/2014 43545-EJWKJKX NAIL, 6 OR MORE 08/25/2014 35314-Mhhd Destruction, 06-2508/25/2014 71305-Dlgl Destruction, 06-2507/04/2014 79462-Gqtk Destruction, 06-2510/06/2014 41449-Zvvk Destruction, 06-2505/26/2014 38891-Ksgv Destruction, 06-2502/24/2014 81114-Zbew Destruction, 06-2510/11/2013 67318-Pqxz Destruction, 06-2509/11/2013 67661-Vkyd Destruction, 06-2507/15/2013 68002-Hajw Destruction, 06-2508/12/2013 11045-Leqa Destruction, 06-2502/25/2015 22050-Mwqx Destruction, 06-2501/08/2015 02088-Xjpwowhu Plate 11/24/2014 06331-Vvtmhgbh Plate 05/27/2013 96750-Smhynixa Plate 02/24/2014 20621-Gaivcpno Plate 05/26/2014 73957-Ksttegjh Plate 08/25/2014 78573- Nail Unit Biopsy 01/25/2018 Next Appt Details Provider Name:Brielle Meadows turner, 12/16/2024 09:15:00 AM, [address] [place] [address], [phone], Insurance Providers Payer Name Payer Address Payer Phone Subscriber Number Group Number Insured Name Patient Relationship to Insured Coverage Start Date Coverage End Date Medicare National Govt Sv[employer] [address] [place] [address] [id number] [employer] Self - patient is the insured [facility] [address] [place] [address] [id number] [employer] Self - patient is the insured [...]
[2024-10-21 13:09] VITALS: BMI 36.2
== END 2024-10-21 14:14 | disposition home or self-care (01) ==
LOC: HO.HNS 12:50
PROVIDERS: PCP Internal Medicine; Visit Provider Physician Assistant
DX: M54.16 Radiculopathy, lumbar region (principal)
CPT/HCPCS: 99213

== ENCOUNTER 2024-10-21 12:49 | Outpatient (REF) | payer MEDICARE, SELFPAY ==
--- NOTE | ~2024-10-21 | XR_ITS ---
EXAMINATION: X-ray lumbar spine. CLINICAL INFORMATION: Radiculopathy, lumbar region TECHNIQUE: AP, lateral projections during neutral flexion and extension position. COMPARISON: Correlated to MRI dated October 10, 2024. 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 Transpedicular screws through L5 and S1. Status post kyphoplasty/vertebroplasty procedure at L1. 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 There is a grade 1 retrolisthesis L1 to in neutral position which persists during flexion and extension position. Osteopenia versus osteoporosis. No acute cortical disruption. . XR/XR lumbar spine 4V min IMPRESSION: Grade 1 retrolisthesis at L1-2 with mild instability. 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 Status post posterior L5-S1 fusion without instability. Electronically signed by: Tyrone Barrios MD 10/21/2024 02:36 PM EDT
--- OUTSIDE RECORDS SUMMARY | 2024-10-21 13:51 | XMS_ITS | Clinical Summary ---
Author Organization [facility] Address [address] [place] [address] Care Team Providers Care Orange Picker Name Role Phone Melina Hou MD Primary Care Provider [phone] Social History Tobacco Use Types Packs/Day Years [...] age to complete this topic Care Teams Orange Picker Relationship Specialty Start Date End Date Melina Hou MD [address] [place] [address] PCP - General Internal Medicine 11/20/18
== END 2024-10-21 12:50 | disposition home or self-care (01) ==
LOC: HO.HOSX 12:49
PROVIDERS: PCP Internal Medicine; Visit Provider Physician Assistant
DX: M54.16 Radiculopathy, lumbar region (principal)
CPT/HCPCS: 72110; 99212

== ENCOUNTER → 2024-10-21 13:36 | Outpatient (BNV) | payer MEDICARE, SELFPAY | PROVIDERS: PCP Internal Medicine; Visit Provider Radiology Diagnostic Radiology | DX: M54.16 Radiculopathy, lumbar region (principal) | CPT/HCPCS: 72110 ==

== ENCOUNTER 2025-02-20 10:42 | Outpatient (REF) | payer MEDICARE, SELFPAY ==
[2025-02-20 11:54] LABS: Prostate Specific Antigen 3.10 ng/mL (<0.05-4.0)
--- OUTSIDE RECORDS SUMMARY | 2025-02-20 14:07 | XMS_ITS | Clinical Summary ---
Author Organization [facility] Address [address] [facility] [address] [place] [address] Phone Care Team Providers Care Button Facing Machine Operator Name Role Phone Melina Hou MD Primary Care Provider Allergies Active Allergy Reactions Criticality Noted Date Comments Albuterol Unknown 04/15/2008 Morphine 06/13/2020 Oxycodone-Acetaminophen 06/13/2020 Medications OMEPRAZOLE ORAL Take 20 mg by mouth daily. Active amLODIPine (NORVASC) 5 MG tablet Take 5 mg by mouth daily. 0 Active atenolol (TENORMIN) 25 MG tablet Take 50 mg by mouth daily. 0 Active montelukast (SINGULAIR) 10 mg tablet Take 10 mg by mouth daily. 0 Active tamsulosin (FLOMAX) 0.4 mg Cap Take 0.4 mg by mouth daily. 0 Active dutasteride (AVODART) 0.5 mg capsule Take 0.5 mg by mouth daily. Active amoxicillin (AMOXIL) 500 MG tablet Take 4 pills (2000 mg) 30-60 minutes prior to dental procedures 20 tablet 4 Active oxyCODONE 5 MG immediate release tablet Take 0.5-1 tablets (2.5-5 mg total) by mouth every 6 (six) hours as needed (for severe pain). Partial fill ok 4 Active Additional Information Patient not taking.Reported on 05/13/2024 senna (SENOKOT) 8.6 mg tablet Take 2 tablets by mouth nightly at bedtime as needed for constipation. 4 Active aspirin 81 MG EC tablet Take 1 tablet (81 mg total) by mouth 2 (two) times a day. 4 Active naproxen (NAPROSYN) 500 MG tablet Take 1 tablet (500 mg total) by mouth 2 (two) times a day with meals for 7 days. 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 Osteoarthritis of knee 04/11/2013 Overview (08/02/2014): OA - Osteoarthritis of knee Immunizations Immunization Administration Dates Next Due Influenza, Unspecified Formulation 04/16(Deferred: Other - pt had pre op) Pneumococcal polysaccharide PPSV23 04/16(Deferred: Other - pt had pre op) Social History Tobacco Use Types Packs/Day Years Used Date Smoking Tobacco: Never Smokeless Tobacco: Never Tobacco Cessation:Counseling Given: Not Answered Alcohol Use Standard Drinks/Week Comments Yes 1 (1 standard drink = 0.6 oz pur e alcohol) Education Answer Date Recorded Are you interested in more education? Not on shannan e 10/06/2022 Are you concerned about learning? Not on file 10/06/2022 No 10/06/2022 No 10/06/2022 Digital Access Answer Date Recorded No 11/06/2022 No 11/06/2022 Reliable internet access at home? Not on file 11/06/2022 Device with a working camera? Not on file Intimate Partner Violence Answer Date R ecorded Are you denied basic needs s uch as food, clothing, or medical care? No 07/04/2023 In the past 12 months have y ou been in a relationship with a person who hurts, threatens, or tries to control you? No 07/04/2023 Are you denied basic needs s uch as food, clothing, or medical care? No 07/04/2023 In the past 12 months have y ou been in a relationship with a person who hurts, threatens, or tries to control you? No 07/04/2023 Sex and Gender Information Value Date Recorded Sex Assigned at Male 03/12/2021 8:01 AM EDT Legal Sex Male 7:53 PM EST Gender Identity Male 03/12/2021 8:01 AM EDT Sexual Orientation Not on file Last Filed Vital Signs Vital Sign Reading Time Taken Comments Blood Pressure 110/61 07/05/2023 12:43 PM EST Pulse 70 07/05/2023 12:43 PM EST Temperature 36.7 C (98.1 F) 07/27/2023 10:59 AM EST Respiratory Rate 18 07/05/2023 12:43 PM EST Oxygen Saturation 95% 07/05/2023 12:43 PM EST Inhaled Oxygen Concentration - - Weight 111.1 kg (245 lb) 09/05/2024 2:01 PM EDT Height 171.5 cm (5' 7.5 ) 09/05/2024 2:01 PM EDT Body Mass Index 37.81 09/05/2024 2:01 PM EDT Plan of Treatment Health Maintenance Due Date Last Done Comments LIPID PANEL 1950 DEPRESSION SCREENING 1962 HEPATITIS C SCREENING 1968 COLOGUARD 1995 COLONOSCOPY 1995 COLORECTAL CANCER SCREENING 1995 FIT TEST 1995 FOBT 1995 SIGMOIDOSCOPY 1995 VIRTUAL COLONOSCOPY 1995 ZOSTER VACCINES (1 of 2) 2000 COVID-19 VACCINE ( season) 2024 08/07/2020, 07/10/2020 INFLUENZA VACCINE (#1) 2025 , 03/20/2019, 03/08/2018, Additional history exists RSV VACCINE (1 - 1-dose 75+ series) 2025 Adult Td,Tdap Booster 12/01/2029 12/02/2019, 020 PNEUMOCOCCAL VACCINES (50+ years) Completed 07/10/2018, 07/14/2015 SMOKING STATUS SCREENING (Once After 26 Yrs) Completed 07/27/2023 HEPATITIS A VACCINES Aged Out No long er eligible based on patient's age to complete this topic HIB VACCINES Aged Out No longer eligi ble based on patient's age to complete this topic MENINGOCOCCAL VACCINES (ACWY) Aged Out No longer eligible based on patient's age to complete this topic MENINGOCOCCAL VACCINES (B) Aged Out N o longer eligible based on patient's age to complete this topic Medical Devices Implanted Type Area Cable Strander Device Identifier Shelf Expiration Date Model / Serial / Lot Machine Shop Specialist Knee 6mm Legion Titanium Offset Plus - [id number] Implanted:Qty: 1 on 05/23/2023 by Rishi Craig MD at [facility] [place] Left: Knee CHINCHILLA [id number] 02/29/2032 [id number] / / [id number] Knee Stem [id number] Femoral Legion Titanium Press Fit Slotted - [id number] Implanted:Qty: 1 on 05/23/2023 by Rishi Craig MD at [facility] [place] Left: Knee CHINCHILLA [id number] 12/07/2028 [id number] / / [id number] Machine Shop Specialist Knee 2mm Legion Titanium Offset Plus - [id number] Implanted:Qty: 1 on 05/23/2023 by Rishi Craig MD at [facility] [place] Left: Knee CHINCHILLA [id number] 11/27/2032 [id number] / / [id number] Knee Baseplate Sz 5 Legion Hk Cement Female Tapered Tibial Lt - [id number] Implanted:Qty: 1 on 05/23/2023 by Rishi Craig MD at [facility] STANDARD Left: Knee CHINCHILLA [id number] 09/21/2028 [id number] / / [id number] Kit Sleeve 15mm [place] And Legion Hk Onc 16c - [id number] Implanted:Qty: 1 on 05/23/2023 by Rishi Craig MD at [facility] STANDARD Left: Knee CHINCHILLA [id number] 03/11/2033 [id number] / / [id number] Kit Sleeve 15mm [place] And Legion Hk Onc 16c - [id number] Implanted:Qty: 1 on 07/04/2023 by Valdo Pack MD at [facility] STANDARD Left: Knee RENÉE [id number] 07/31/2031 [id number] / / [id number] Screw Screw Back Knee Wedge Sz 7 5mm Femoral Distal Legion - [id number] Implanted:Qty: 1 on 05/23/2023 by Rishi Craig MD at [facility] Left: Knee CHINCHILLA 10/21/2029 [id number] / / [id number] Description:Transferred from one time implant Tibial Wedge 10mm Sz 5 Legion Finned Lt - [id number] Implanted:Qty: 1 on 05/23/2023 by Rishi Craig MD at [facility] Left: Knee RENÉE 07/31/2027 [id number] / / [id number] Description:Transferred from one time implant Kit Cement Bone Simplex P Tobramycin Antibiotic Impregnated Full Single Dose Bx/1ea - Discontinued Per Supplier [employer] Issue Use Ps# 13140 - [id number] Implanted:Qty: 1 on 05/23/2023 by Rishi Craig MD at [facility] Left: Knee [employer] [id number] 08/09/2024 6197-9-001 / / [id number] Kit Cement Bone Simplex P Tobramycin Antibiotic Impregnated Full Single Dose Bx/1ea - Discontinued Per Supplier [employer] Issue Use Ps# 50957 - [id number] Implanted:Qty: 1 on 05/23/2023 by Rishi Craig MD at [facility] Left: Knee [employer] [id number] 08/09/2024 6197-9-001 / / [id number] Knee Femoral Lt Sz 7 Legion Cemented - [id number] Implanted:Qty: 1 on 05/23/2023 by Rishi Craig MD at [facility] Left: Knee CHINCHILLA [id number] 08/18/2028 [id number] / / [id number] Distal Femoral Wedge 5mm Size 7 Legion Hk Implanted:Qty: 1 on 05/23/2023 by Rishi Craig MD at [facility] Left: Knee [id number] 10/21/2029 / [id number] Distal Femoral Wedge 5mm Size 7 Legion Hk Implanted:Qty: 1 on 05/23/2023 by Rishi Craig MD at [facility] Left: Knee [id number] 10/21/2029 / [id number] Size 5 Keft 10mm Legion Finned Tib Wedge Implanted:Qty: 1 on 05/23/2023 by Rishi Craig MD at [facility] Left: Knee [id number] 07/31/2027 / / [id number] Knee Stem [id number] Femoral Legion Titanium Press Fit Slotted - [id number] Implanted:Qty: 1 on 05/23/2023 by Rishi Craig MD at [facility] Left: Knee RENÉE [id number] 03/27/2031 [id number] / / [id number] Knee Insert 5 15mm Size 4 Legion Hk Polyethylene Guided Motion Tibial Left - [id number] Implanted:Qty: 1 on 05/23/2023 by Rishi Craig MD at [facility] Left: Knee CHINCHILLA [id number] 07/23/2028 [id number] / / [id number] Knee Insert 5 15mm Size 4 Legion Hk Polyethylene Guided Motion Tibial Left - [id number] Implanted:Qty: 1 on 07/04/2023 by Valdo Pack MD at [facility] Left: Knee RENÉE [id number] 01/16/2028 [id number] / / [id number] Insurance MEDICARE PART A & B [employer] MEDEX SUPPLEMENT MEDICARE PART A & B [employer] MEDEX SUPPLEMENT MEDICARE PART A & B [employer] MEDEX SUPPLEMENT MEDICARE PART A & B [employer] MEDEX SUPPLEMENT MEDICARE PART A & B Member Subscriber Plan / Payer (Ef fective 2010-Present) Name:Travis Pepe Member ID:[id number] Relation to Subscriber:Self Name:Travis Pepe Subscriber ID:[id number] Payer ID:[id number] Group ID:Not on file Type:Medicare Address: [place] [address] [place] [phone] [employer] CROSS MEDEX SUPPLEMENT MEDICARE PART A & B [employer] CROSS MEDEX SUPPLEMENT MEDICARE PART A & B [employer] MEDEX SUPPLEMENT MEDICARE PART A & B [employer] MEDEX SUPPLEMENT MEDICARE PART A & B [employer] RESERVE MEDEX SUPPLEMENT Advance Directives For more information, please contact: [phone] (9AM - 5PM [facility], Monday-Monday) Documents on File Type Date Recorded Patient Retread Operator Expl anation Healthcare Proxy 05/26/2023 4:15 PM Care Teams Button Facing Machine Operator Relationship Specialty Start Date End Date Melina Hou MD [address] [place] [address] PCP - General Internal Medicine 06/13/20 Additional Source Comments The information contained in this document represents components of the legal health record. It is not the complete legal health record.[facility]
--- OUTSIDE RECORDS SUMMARY | 2025-02-20 14:07 | XMS_ITS | Encounter Summary ---
Author Organization [facility] Address [address] [facility] [address] [place] [address] Phone Care Team Providers Care Chemical Treatment Operator Name Role Phone Melina Hou MD Primary Care Provider Encounter Details Date Type Department Care Team (Late st Contact Info) Description 07/04/2023 Procedure Pass [facility] [address] [place] [address] Social History Tobacco Use Types Packs/Day Years Used Date Smoking Tobacco: Never Smokeless Tobacco: Never Alcohol Use Standard Drinks/Week Comments Yes 1 [...] AM EDT Sexual Orientation Not on file documented as of this encounter Functional Status * Calculated C-SSRS Risk Score (Lifetime/Recent) Answer Date of Assessment Author No Risk Indicated 07/04/2023 7:00 PM Samreen Hurtado RN * [place] Suicide Severity Rating Scale (Screener/Recent Self-Report) Question Answer Date of Assessment Author 1. Wish to be (Past 1 Month) No 024 7:00 PM Samreen Nascimento, MELISSA 2. Non-Specific Active Suici anjelica Thoughts (Past 1 Month) No 07/04/2023 7:00 PM Elaine Nascimento RN 6. Suicidal Behavior (Lifetime) No 4 7:00 PM Samreen Nascimento RN documented as of this encounter Plan of Treatment Not on file documented as of this encounter Visit Diagnoses Not on filedocumented in this encounter Care Teams Chemical Treatment Operator Relationship Specialty Start Date End Date Melina Hou MD [facility] [place] [address] PCP - General Internal Medicine 06/13/20 documented as of this encounter Additional Source Comments The information contained in this document represents components of the legal health record. It is not the complete legal health record.[facility]
--- OUTSIDE RECORDS SUMMARY | 2025-02-20 14:07 | XMS_ITS | Encounter Summary ---
Author Organization [facility] Address [address] [facility] [address] [place] [address] Phone Care Team Providers Care Ribbon Cleaner Name Role Phone Melina Hou MD Primary Care Provider Encounter Details Date Type Department Care Team (Late st Contact Info) Description 05/23/2023 Procedure Pass [facility] [address] [place] [address] Social History Tobacco Use Types Packs/Day Years [...] with a working camera? Not on file Sex and Gender Information Value Date Recorded Sex Assigned at Male 03/12/2021 8:01 AM EDT Legal Sex Male 7:53 PM EST Gender Identity Male 03/12/2021 8:01 AM EDT Sexual Orientation Not on file documented as of this encounter Functional Status * Calculated C-SSRS Risk Score (Lifetime/Recent) Answer Date of Assessment Author No Risk Indicated 05/23/2023 9:39 PM Namrata Marrero i, RN * [place] Suicide Severity Rating Scale (Screener/Recent Self-Report) Question Answer Date of Assessment Author 1. Wish to be (Past 1 Month) No 023 9:39 PM Namrata Gutierrez RN 2. Non-Specific Active Suici anjelica Thoughts (Past 1 Month) No 05/23/2023 9:39 PM Annie Gutierrez RN 6. Suicidal Behavior (Lifetime) No 3 9:39 PM Namrata Gutierrez RN documented as of this encounter Plan of Treatment Not on file documented as of this encounter Visit Diagnoses Not on filedocumented in this encounter Care Teams Ribbon Cleaner Relationship Specialty Start Date End Date Melina Hou MD [facility] [place] [address] PCP - General Internal Medicine 06/13/20 documented as of this encounter Additional Source Comments The information contained in this document represents components of the legal health record. It is not the complete legal health record.[facility]
--- OUTSIDE RECORDS SUMMARY | 2025-02-20 14:07 | XMS_ITS | Clinical Summary ---
Author Organization [address] [facility] Address [address] [place] [address] Phone Care Team Providers Care Automatic Die Cutting Machine Operator Name Role Phone Melina Hou MD Primary Care Provider Social History Tobacco Use Types Packs/Day Years Used Date Smoking Tobacco: Never Assessed Sex and Gender Information Value Date Recorded Sex Assigned at Not on file Legal Sex Male 10:10 PM EST Gender Identity Not on file Sexual Orientation Not on file Plan of Treatment Upcoming Encounters Date Type Department Care Team ([facility] st Contact Info) Description 04/21/2025 9:00 AM EST Office Visit [facility] [address] [place] [address] Clarke Fenton MD [address] [place] [address] Health Maintenance Due Date Last Done Comments DTaP,Tdap,and Td Vaccines (1 - Tdap) 1969 Pneumococcal Vaccine: 50+ Ye ars (1 of 1 - PCV) 2000 Zoster Vaccines (1 of 2) 2000 Abdominal Aortic Aneurysm (A AA) Screen 05/14/2022 Cholesterol Screening (Lipid Panel) 05/14/2022 Colorectal Cancer Screening: Colonoscopy 05/14/2022 Falls Risk Assessment 05/14/2022 Hepatitis C Screening 05/14/2022 Medicare Annual Wellness Visit 05/14/2022 Social Influencers of Health Screening 05/14/2022 Depression Screening 2024 COVID-19 Vaccine ( - 2023-2 5 season) 2025 Influenza Vaccine (#1) 2025 RSV Immunization Adult Patie nts (1 [...] on patient's age to complete this topic Insurance [facility] MEDICARE Care Teams Automatic Die Cutting Machine Operator Relationship Specialty Start Date End Date Melina Hou MD [address] [place] [address] PCP - General Internal Medicine 11/20/18
--- OUTSIDE RECORDS SUMMARY | 2025-02-20 14:07 | XMS_ITS | Encounter Summary ---
Author Organization [facility] Address [address] [facility] [address] [place] [address] Phone Care Team Providers Care Outdoor Emergency Care Technician Name Role Phone Melina Hou MD Primary Care Provider Encounter Details Date Type Department Care Team (Late st Contact Info) Description 06/28/2023 Procedure Pass [facility] [address] [place] [address] Social History Tobacco Use Types Packs/Day Years [...] on file documented as of this encounter Plan of Treatment Not on file documented as of this encounter Visit Diagnoses Not on filedocumented in this encounter Care Teams Outdoor Emergency Care Technician Relationship Specialty Start Date End Date Melina Hou MD [facility] [place] [address] PCP - General Internal Medicine 06/13/20 documented as of this encounter Additional Source Comments The information contained in this document represents components of the legal health record. It is not the complete legal health record.[facility]
== END 2025-02-20 10:43 | disposition home or self-care (01) ==
LOC: HO.LAB 10:42
PROVIDERS: PCP Internal Medicine; Visit Provider Urology
DX: R97.20 Elevated prostate specific antigen [PSA] (principal); Z12.5 Encounter for screening for malignant neoplasm of prostate
CPT/HCPCS: 36415; 84153